=== PATIENT | female | born 1940 | race Caucasian/White ===

== ENCOUNTER 2018-02-28 05:45 | Emergency (ER) | payer MEDICARE, BC ==
[2018-02-28] MEDS ORDERED: Sodium Chloride 0.9% 500 ML IV ONE (06:26)
[2018-02-28] MEDS ORDERED: Acetaminophen 325 MG Tab PO ONE (06:26)
--- NOTE | 2018-02-28 06:37 | EDM.PDOC ---
ED HPI GENERAL MEDICAL PROBLEM - General Chief Complaint: ENT Problem Stated Complaint: LEFT SIDE OF FACE TOOTH PAIN Time Seen by Provider: 02/28/18 05:55 Source of Information: Reports: Patient, Family History Limitations: Reports: No Limitations - History of Present Illness INITIAL COMMENTS - FREE TEXT/NARRATIVE: Patient presents with left facial swelling and pain in the upper tooth area. She 's had a history of a root canal with some dental work and she is concerned that this might have set off her problems. She's been dealing with this now for about 2 days. Last night she woke up at about midnight and called her daughter who is an RN and she has amoxicillin in case of any dental procedure prior to having dental work based on a history of a hip replacement. She took some amoxicillin and Tylenol and was able to fall back to sleep however then she woke up again this morning and felt like the area of swelling on the face was worse and she developed more of a headache as well as some nausea. She denies any fevers chills or sweats. No cough and cold symptoms or sore throat. No swallowing difficulty. Headache is constant pressure and generalized stiffness or skin rash associated with it and no double vision or blurry vision. No focal neurologic deficits. Patient does describe that she had meningitis when she was in her teens. Left Tooth/Teeth Pain Score (Numeric/FACES): 6 - Related Data Allergies Allergy/AdvReac Type Severity Reaction Status Date / Time ciprofloxacin [From Cipro] Allergy Abdominal Verified 02/28/18 06:00 MDT Pain Home Meds: Home Meds Amoxicillin 4 tab PO ASDIRECTED PRN 02/28/18 [History] Levothyroxine 150 mcg PO DAILY 02/28/18 [History] Past Medical History Endocrine/Metabolic History: Reports: Hypothyroidism - Past Surgical History Musculoskeletal Surgical History: Reports: Hip Replacement Social & Family History - Family History Family Medical History: Noncontributory - Tobacco Use Smoking Status *Q: Never Smoker ED ROS ENT - Review of Systems Review Of Systems: See Below Constitutional: Denies: Fever, Chills, Diaphoresis Respiratory: Denies: Shortness of Breath, Cough Cardiovascular: Denies: Chest Pain GI/Abdominal: Reports: Nausea. Denies: Abdominal Pain, Diarrhea, Vomiting Musculoskeletal: Denies: Neck Pain, Muscle Stiffness Skin: Denies: Rash Neurological: Reports: Headache. Denies: Paresthesia, Tingling, Weakness Psychiatric: Denies: Confusion ED EXAM, ENT - Physical Exam Exam: See Below Exam Limited By: No Limitations General Appearance: Alert, WD/WN, No Apparent Distress, Anxious Eye Exam: Bilateral Eye: EOMI, PERRL Ears: Normal External Exam, Normal TMs Nose: Normal Mucousa Mouth/Throat: Normal Inspection, Normal Gums, Dental Pain, Dental Tenderness, Other (No sublingual swelling. She does have firmness to the area of the left, no sinus pain, no obvious peritonsillar abscess, no sublingual swelling.). No: Drooling, Dry Mucous Membrane, Tonsillar Erythema, Trismus Respiratory/Chest: Lungs Clear, Normal Breath Sounds Cardiovascular: Regular Rate, Rhythm GI/Abdominal: Soft, Non-Tender Neurological: Alert, Oriented Psychiatric: Normal Affect, Normal Mood Skin: Warm, Dry Course - Vital Signs Text/Narrative:: Suspect may be a dental source although this could be a sialolith adenitis. She has no adenopathy in the neck, trachea is midline, no trismus, headache is generalized although no red flags for meningitis. She does have some mild swelling and redness to left face. Sent for a CT of the face to rule out deep abscess. Discussed and spent approximately 10 minutes on the phone talking with her daughter who is her power of workers compensation defense attorney as well as an RN and after reviewing( and workup and evaluation decided on the CT scan, IV fluids, antibiotics, clindamycin, Tylenol for pain, labs. Last Recorded V/S: Last Vital Signs Temp 97.6 F 02/28/18 05:54 MDT Pulse 82 02/28/18 05:54 MDT Resp 16 02/28/18 05:54 MDT BP 160/71 H 02/28/18 05:54 MDT Pulse Ox 100 02/28/18 05:54 MDT - Orders/Labs/Meds Orders: Active Orders 24 hr Category Date Time Status Maxillofacial with CM [Max Facial Sinus w Cont] [CT] Exams 02/28/18 06:27 Ordered Stat BASIC METABOLIC PANEL,BMP [CHEM] Stat Lab 02/28/18 06:55 Received C-REACTIVE PROTEIN [CHEM] Stat Lab 02/28/18 06:55 Received Clindamycin Phosphate [Cleocin] 600 mg Med 02/28/18 06:46 Active Sodium Chloride 0.9% [Normal Saline] 100 ml IV ONETIME Sodium Chloride 0.9% [Normal Saline] 500 ml Med 02/28/18 06:26 Active IV .BOLUS Medication Orders Sodium Chloride (Normal Saline) 500 mls @ 250 mls/hr IV .BOLUS ONE Stop: 02/28/18 08:25 MDT Last Admin: 02/28/18 07:01 MDT Dose: 250 mls/hr Clindamycin Phosphate 600 mg/ (Sodium Chloride) 104 mls @ 100 mls/hr IV ONETIME ONE Stop: 02/28/18 07:48 MDT Last Admin: 02/28/18 07:01 MDT Dose: 100 mls/hr Labs: Laboratory Tests 02/28/18 Range/Units 06:55 MDT WBC 7.91 (3.98-10.04) K/mm3 RBC 3.59 L (3.98-5.22) M/mm3 Hgb 11.8 (11.2-15.7) gm/L Hct 35.8 (34.1-44.9) % MCV 99.7 H (79.4-94.8) fl MCH 32.9 H (25.6-32.2) pg MCHC 33.0 (32.2-35.5) g/dl RDW Std Deviation 56.8 H (36.4-46.3) fL Plt Count 282 (182-369) K/mm3 MPV 10.7 (9.4-12.3) fl Neut % (Auto) 72.8 H (34.0-71.1) % Lymph % (Auto) 17.3 L (19.3-51.7) % [place] % (Auto) 6.8 (4.7-12.5) % Eos % (Auto) 2.9 (0.7-5.8) Baso % (Auto) 0.1 (0.1-1.2) % Neut # (Auto) 5.75 (1.56-6.13) K/mm3 Lymph # (Auto) 1.37 (1.18-3.74) K/mm3 [place] # (Auto) 0.54 H (0.24-0.36) K/mm3 Eos # (Auto) 0.23 (0.04-0.36) K/mm3 Baso # (Auto) 0.01 (0.01-0.08) K/mm3 Meds: Medications Generic Name Dose Route Start Last Admin Trade Name Freq PRN Reason Stop Dose Admin Sodium Chloride 500 mls @ 250 mls/hr 02/28/18 06:26 MDT 02/28/18 07:01 MDT Normal Saline IV 02/28/18 08:25 MDT 250 mls/hr .BOLUS ONE Administration Clindamycin Phosphate 600 mg/ 104 mls @ 100 mls/hr 02/28/18 06:46 MDT 07:01 MDT Sodium Chloride IV 02/28/18 07:48 MDT 100 mls/hr ONETIME ONE Administration Discontinued Medications Generic Name Dose Route Start Last Admin Trade Name Freq PRN Reason Stop Dose Admin Acetaminophen 650 mg 02/28/18 06:26 MDT 02/28/18 07:01 MDT Tylenol PO 02/28/18 06:27 MDT 650 mg NOW ONE Administration Departure - Departure Time of Disposition: 07:28 Disposition: Refer to Observation Clinical Impression: Toothache - Discharge Information Referrals: PCP,Not In Area [Primary Care Provider] - Forms: ED Department Discharge - My Orders Last 24 Hours: My Active Orders 02/28/18 06:26 Sodium Chloride 0.9% [Normal Saline] 500 ml IV .BOLUS 02/28/18 06:27 Maxillofacial with CM [Max Facial Sinus w Cont] [CT] Stat 02/28/18 06:46 Clindamycin Phosphate [Cleocin] 600 mg Sodium Chloride 0.9% [Normal Saline] 100 ml IV ONETIME 02/28/18 06:55 BASIC METABOLIC PANEL,BMP [CHEM] Stat C-REACTIVE PROTEIN [CHEM] Stat - Assessment/Plan Last 24 Hours: My Active Orders 02/28/18 06:26 Sodium Chloride 0.9% [Normal Saline] 500 ml IV .BOLUS 02/28/18 06:27 Maxillofacial with CM [Max Facial Sinus w Cont] [CT] Stat 02/28/18 06:46 Clindamycin Phosphate [Cleocin] 600 mg Sodium Chloride 0.9% [Normal Saline] 100 ml IV ONETIME 02/28/18 06:55 BASIC METABOLIC PANEL,BMP [CHEM] Stat C-REACTIVE PROTEIN [CHEM] Stat
[2018-02-28] MEDS ORDERED: Clindamycin Phosphate 600 MG in Sodium Chloride 0.9% 100 ML IV ONE (06:46)
[2018-02-28] MEDS ORDERED: Iopamidol 612 MG/ML 100 ML Bottle IVPUSH ONE (07:37)
[2018-02-28] MEDS ORDERED: Sodium Chloride 0.9% 10 ML Syringe FLUSH ONE (07:37)
== END 2018-02-28 10:35 | disposition other institution (70) ==
LOC: JD.ED 05:45
DX: K08.89 Other specified disorders of teeth and supporting structures (principal); E03.9 Hypothyroidism, unspecified; Z88.1 Allergy status to other antibiotic agents; Z79.899 Other long term (current) drug therapy
CPT/HCPCS: 36415; 70487; 80048; 85025; 86140; 96361; 96365; 99284; A9270; J3490; J7030; J7040; J7050; Q9967

== ENCOUNTER 2019-02-15 18:11 | Inpatient (IN) | payer MEDICARE, BC ==
[2019-02-15] MEDS ORDERED: Sodium Chloride 0.9% 10 ML Syringe FLUSH PRN (18:19)
[2019-02-15] MEDS ORDERED: HYDROmorphone 0.5 MG/0.5 ML Syringe IVPUSH ONE (18:20)
--- NOTE | 2019-02-15 18:41 | EDM.PDOC ---
ED HPI GENERAL MEDICAL PROBLEM - General Chief Complaint: Lower Extremity Injury/Pain Stated Complaint: [facility] Time Seen by Provider: 02/15/19 18:15 Source of Information: Reports: Patient, EMS History Limitations: Reports: No Limitations - History of Present Illness INITIAL COMMENTS - FREE TEXT/NARRATIVE: The patient presents by [facility] ambulance for right hip pain. The patient says she turned to get a cooler and she felt pain in her hip and fell and had more pain in her right hip. She did not hip her head or hurt her neck. She had no chest pain or shortness of breath. She does have a shortened an externally rotated right leg. She has no fever, chills or cough. She says a few years ago she had both hips replaced. 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 Cardiovascular History: Reports: None Other Cardiovascular History: Reynaud's Disease Respiratory History: Reports: Pneumonia, Recurrent Other Genitourinary History: Pt states that her vagina protruded at one point. 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: Musculoskeletal History: Reports: Arthritis, Fracture Other Musculoskeletal History: arthritis in the knees Neurological History: Reports: None Psychiatric History: Reports: None Endocrine/Metabolic History: Reports: Hypothyroidism Hematologic History: Reports: Blood Transfusion(s) Immunologic History: Reports: None Oncologic (Cancer) History: Reports: None Dermatologic History: Reports: None - Infectious Disease History Infectious Disease History: Reports: None - Past Surgical History Head Surgeries/Procedures: Reports: None HEENT Surgical History: Reports: Cataract Surgery, Oral Surgery, Tonsillectomy Other HEENT Surgeries/Procedures: Deviated Septum GI Surgical History: Reports: Appendectomy, Cholecystectomy Female Surgical History: Reports: Hysterectomy Musculoskeletal Surgical History: Reports: Hip Replacement Other Musculoskeletal Surgeries/Procedures:: bilateral hip replacements Social & Family History - Family History Family Medical History: Noncontributory - Tobacco Use Smoking Status *Q: Never Smoker - Caffeine Use Caffeine Use: Reports: Coffee - Recreational Drug Use Recreational Drug Use: No Review of Systems - Review of Systems Review Of Systems: See Below Constitutional: Reports: No Symptoms Eyes: Reports: No Symptoms Ears: Reports: No Symptoms Nose: Reports: No Symptoms Mouth/Throat: Reports: No Symptoms Respiratory: Reports: No Symptoms Cardiovascular: Reports: No Symptoms GI/Abdominal: Reports: No Symptoms Genitourinary: Reports: No Symptoms Musculoskeletal: Reports: Other (Right hip pain) ED EXAM, GENERAL - Physical Exam Exam: See Below Exam Limited By: No Limitations General Appearance: Alert, No Apparent Distress Ears: Normal External Exam Nose: Normal Inspection Head: Atraumatic, Normocephalic Neck: Normal Inspection, Supple, Non-Tender Respiratory/Chest: No Respiratory Distress, Lungs Clear, Normal Breath Sounds Cardiovascular: Regular Rate, Rhythm, No Edema, No Murmur GI/Abdominal: Soft, Non-Tender, No Organomegaly, No Mass Extremities: Other (Pain upon palpation to the right hip. Leg is shortened and externally rotated. Good sensation and pulses distally.) Course - Vital Signs Last Recorded V/S: Last Vital Signs Temp 97.8 F 02/15/19 18:22 Pulse 85 02/15/19 18:22 Resp 16 02/15/19 18:22 BP 160/66 H 02/15/19 18:22 Pulse Ox 98 02/15/19 18:22 - Orders/Labs/Meds Orders: Active Orders 24 hr Category Date Time Status Cardiac Monitoring [RC] . DIRECTED Care 02/15/19 18:19 Active EKG Documentation Completion [RC] STAT Care 02/15/19 18:19 Active Peripheral IV Care [RC] . DIRECTED Care 02/15/19 18:20 Active Chest 1V Frontal [CR] Stat Exams 02/15/19 18:20 Taken Femur wo Cont Rt [CT] Stat Exams 02/15/19 19:36 Taken Hip Min 2V or 3V w Pelvis Rt [CR] Stat Exams 02/15/19 18:20 Taken Lumbar Spine wo Cont [CT] Stat Exams 02/15/19 19:45 Taken Thoracic Spine wo Cont [CT] Stat Exams 02/15/19 19:44 Taken Sodium Chloride 0.9% [Saline Flush] Med 02/15/19 18:19 Active 10 ml FLUSH ASDIRECTED PRN Peripheral IV Insertion Adult [OM.PC] Stat Oth 02/15/19 18:19 Ordered Medication Orders Sodium Chloride (Saline Flush) 10 ml FLUSH ASDIRECTED PRN PRN Reason: Keep Vein Open Last Admin: 02/15/19 18:51 Dose: 10 ml Labs: Laboratory Tests 02/15/19 02/15/19 Range/Units 19:50 19:50 WBC 16.24 H (3.98-10.04) K/mm3 RBC 3.24 L (3.98-5.22) M/mm3 Hgb 10.7 L (11.2-15.7) gm/L Hct 32.5 L (34.1-44.9) % MCV 100.3 H (79.4-94.8) fl MCH 33.0 H (25.6-32.2) pg MCHC 32.9 (32.2-35.5) g/dl RDW Std Deviation 57.7 H (36.4-46.3) fL Plt Count 273 (182-369) K/mm3 MPV 10.7 (9.4-12.3) fl Neut % (Auto) 89.7 H (34.0-71.1) % Lymph % (Auto) 6.2 L (19.3-51.7) % [place] % (Auto) 3.5 L (4.7-12.5) % Eos % (Auto) 0.1 L (0.7-5.8) Baso % (Auto) 0.1 (0.1-1.2) % Neut # (Auto) 14.57 H (1.56-6.13) K/mm3 Lymph # (Auto) 1.00 L (1.18-3.74) K/mm3 [place] # (Auto) 0.57 H (0.24-0.36) K/mm3 Eos # (Auto) 0.02 L (0.04-0.36) K/mm3 Baso # (Auto) 0.02 (0.01-0.08) K/mm3 Manual Slide Review Abnormal smear Sodium 139 (136-145) mEq/L Potassium 4.0 (3.5-5.1) mEq/L Chloride 106 (98-107) mEq/L Carbon Dioxide 24 (21-32) mEq/L Anion Gap 13.0 (5-15) BUN 16 (7-18) mg/dL Creatinine 0.7 (0.55-1.02) mg/dL Est Cr Clr Drug Dosing 55.35 mL/min Estimated GFR (MDRD) > 60 (>60) mL/min BUN/Creatinine Ratio 22.9 H (14-18) Glucose 120 H (83-115) mg/dL Calcium 8.3 L (8.5-10.1) mg/dL Total Bilirubin 0.7 (0.2-1.0) mg/dL AST 25 (15-37) U/L ALT 27 (14-59) U/L Alkaline Phosphatase 61 (46-116) U/L Troponin I < 0.017 (0.00-0.056) ng/mL Total Protein 6.9 (6.4-8.2) g/dl Albumin 3.7 (3.4-5.0) g/dl Globulin 3.2 gm/dL Albumin/Globulin Ratio 1.2 (1-2) Meds: Medications Generic Name Dose Route Start Last Admin Trade Name Freq PRN Reason Stop Dose Admin Sodium Chloride 10 ml 02/15/19 18:19 02/15/19 18:51 Saline Flush FLUSH 10 ml ASDIRECTED PRN Administration Keep Vein Open Discontinued Medications Generic Name Dose Route Start Last Admin Trade Name Freq PRN Reason Stop Dose Admin Hydromorphone HCl 0.25 mg 02/15/19 18:20 02/15/19 18:48 Dilaudid IVPUSH 02/15/19 18:21 0.25 mg ONETIME ONE Administration - Re-Assessments/Exams Free Text/Narrative Re-Assessment/Exam: 02/15/19 18:42 I ordered an IV saline lock, x-ray of her hip and pelvis, labs, CXR and EKG. I also ordered her dilaudid 0.25mg IV. 02/15/19 20:46 Her hip x-ray does show a fracture around her prosthesis on the right. Her WBC was elevated at 16.24. Her Hgb was low at 10.7. Her glucose is 120. Her torponin is normal. Her EKG shows a NSR with no acute changes. I called Dr Paris and he looked at the x-rays and he wanted a CT of her femur. I went into let the patient know and she had pain to her mid back now. I then ordered a CT of her thoracic and lumbar spine. I am waiting on those results now. 02/15/19 21:11 Dr Paris says he can do the surgery here. The CT of the right hip confirms the fracture. The CT of her thoracic and lumbar spine shows old changes but nothing new. She is having more pain so I ordered morphine 2mg IV and some zofran. I called Dr Ashford and he agreed to the admission. Departure - Departure Time of Disposition: 21:20 Disposition: Admitted As Inpatient 64 Clinical Impression: Fall Qualifiers: Encounter type: initial encounter Qualified Code(s): W19.XXXA - Unspecified fall, initial encounter Amalia-prosthetic fracture around prosthetic hip Qualifiers: Encounter type: initial encounter Qualified Code(s): M97.8XXA - Periprosthetic fracture around other internal prosthetic joint, initial encounter; Z96.649 - Presence of unspecified artificial hip joint - Discharge Information Referrals: PCP,Not In Area [Primary Care Provider] - Forms: ED Department Discharge - My Orders Last 24 Hours: My Active Orders 02/15/19 18:19 Cardiac Monitoring [RC] . DIRECTED EKG Documentation Completion [RC] STAT Sodium Chloride 0.9% [Saline Flush] 10 ml FLUSH ASDIRECTED PRN Peripheral IV Insertion Adult [OM.PC] Stat 02/15/19 18:20 Peripheral IV Care [RC] . DIRECTED Chest 1V Frontal [CR] Stat Hip Min 2V or 3V w Pelvis Rt [CR] Stat 02/15/19 19:36 Femur wo Cont Rt [CT] Stat 02/15/19 19:44 Thoracic Spine wo Cont [CT] Stat 02/15/19 19:45 Lumbar Spine wo Cont [CT] Stat - Assessment/Plan Last 24 Hours: My Active Orders 02/15/19 18:19 Cardiac Monitoring [RC] . DIRECTED EKG Documentation Completion [RC] STAT Sodium Chloride 0.9% [Saline Flush] 10 ml FLUSH ASDIRECTED PRN Peripheral IV Insertion Adult [OM.PC] Stat 02/15/19 18:20 Peripheral IV Care [RC] . DIRECTED Chest 1V Frontal [CR] Stat Hip Min 2V or 3V w Pelvis Rt [CR] Stat 02/15/19 19:36 Femur wo Cont Rt [CT] Stat 02/15/19 19:44 Thoracic Spine wo Cont [CT] Stat 02/15/19 19:45 Lumbar Spine wo Cont [CT] Stat
[2019-02-15] MEDS ORDERED: Ondansetron 4 MG/2 ML SDV IVPUSH ONE (21:11)
[2019-02-15] MEDS ORDERED: Morphine 2 MG/ML Syringe IVPUSH ONE (21:12)
[2019-02-15] MEDS ORDERED: Ketorolac 30 MG/ML SDV IV PRN (21:46)
[2019-02-15] MEDS ORDERED: Polyethylene Glycol 3350 Powder 17 GM Packet PO PRN (21:46)
[2019-02-15] MEDS ORDERED: HYDROmorphone 0.5 MG/0.5 ML Syringe IVPUSH PRN (21:46)
[2019-02-15] MEDS ORDERED: Promethazine 6.25 MG in Sodium Chloride 0.9% 50 ML IV PRN (21:46)
[2019-02-15] MEDS ORDERED: Docusate Sodium 100 MG Cap PO PRN (21:46)
[2019-02-15] MEDS ORDERED: Acetaminophen 325 MG Tab PO PRN (21:46)
[2019-02-15] MEDS ORDERED: LORazepam 2 MG/ML SDV IV PRN (21:46)
[2019-02-15] MEDS ORDERED: Albuterol/Ipratropium 3.0-0.5 MG/3 ML Neb Soln NEB PRN (21:46)
[2019-02-15] MEDS ORDERED: Bisacodyl 5 MG Tab PO PRN (21:46)
[2019-02-15] MEDS ORDERED: Cyclobenzaprine 10 MG Tab PO ONE (21:52)
[2019-02-15] MEDS: Heparin Sodium 5,000 Units/ML Vial SUBCUT SCH (22:58)
[2019-02-15] MEDS: Acetaminophen/HYDROcodone 325-5 MG Tab PO PRN (22:59)
[2019-02-16] MEDS: Ketorolac 15 MG/ML SDV IVPUSH PRN ×2 (01:33→09:42)
[2019-02-16] MEDS: Heparin Sodium 5,000 Units/ML Vial SUBCUT SCH ×3 (05:25→21:08)
[2019-02-16] MEDS: Levothyroxine 150 MCG Tab PO SCH (05:26)
[2019-02-16] MEDS: Acetaminophen/HYDROcodone 325-5 MG Tab PO PRN ×5 (05:26→21:57)
--- NOTE | 2019-02-16 06:20 | PCM.HP.2 ---
H&P History of Present Illness - General Date of Service: 02/16/19 Admit Problem/Dx: Admission Diagnosis/Problem Admission Diagnosis/Problem Hip fracture requiring operative repair Source of Information: Patient, Provider, RN, RN Notes Reviewed History Limitations: Reports: No Limitations - History of Present Illness Initial Comments - Free Text/Narative: Leelee Vogt is an 78 -year-old female who presented to our ED via [facility] ambulance on 02/15/19 with right hip pain. She reportedly twisted to get a cooler and felt a pain in her hip and then fell. This resulted in more pain in her right hip. She denies hitting her head or hurting her neck. Denies chest pain, shortness of breath, fever, chills, cough. She is noted to have shortened and externally rotated right leg. She does state that she had both hips replaced a few years ago in [place]. In the ED temperature 97.8F. Pulse 85. Respirations 16. Blood pressure 160/ 66. Pulse ox 90%. Labs are obtained showing a WBC that is elevated at 16.24. Hemoglobin 10.7. Hematocrit 32.5. She is macrocytic. Blood sugar 273,000. Neutrophils are elevated at 89.7%. Sodium is 139. Potassium 4.0. Chloride 104. From an accident 24. Anion gap 13. BUN 16. Creatinine 0.7. EGFR greater than 60. Glucose 120. Calcium 8.3. Bilirubin 0.7. AST 25, ALT 27, alkaline phosphatase 61. Troponin is less than 0.017. Protein is 6.9. Albumin 3.7. Hip x-rays obtained showing a proximal diaphyseal fracture surrounding the right hip prosthesis. There is also bilateral hip prosthesis which appear normal alignment and osteopenia noted. Chest x-rays obtained showing nothing acute. CT of the thoracic spine is obtained showing mild diffuse degenerative change and nothing acute. CT of the lumbar spine is obtained and shows a compression deformity of L2. No acute fracture lines are seen and it is most likely old. MRI would be needed to confirm age. There is also degenerative change noted. Twelve-lead EKG is obtained and interpreted by the ED provider showing sinus rhythm with no acute changes. Dr. Espinal, orthopedic surgeon, is contacted and requested a CT of the femur be obtained. This does show a slightly displaced fracture involving the proximal femoral diaphysis surrounding a hip prosthesis. No additional fracture is seen. There are degenerative changes noted within the knee. She is initially given Dilaudid 0.25 mg IV for pain and then 2 mg IV morphine later. She also given Zofran. She is subsequently admitted to the medical floor for her fracture. 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 She was never a smoker. She is a full code. Her PCP is not in the area. 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 [employer] History: Reports: Endometriosis, Musculoskeletal History: Reports: Arthritis, Fracture Other Musculoskeletal History: arthritis in the knees Neurological History: Reports: None Psychiatric History: Reports: None Endocrine/Metabolic History: Reports: Hypothyroidism Hematologic History: Reports: Blood Transfusion(s) Immunologic History: Reports: None Oncologic (Cancer) History: Reports: None Dermatologic History: Reports: None - Infectious Disease History Infectious Disease History: Reports: None - Past Surgical History Head Surgeries/Procedures: Reports: None HEENT Surgical History: Reports: Cataract Surgery, Oral Surgery, Tonsillectomy Other HEENT Surgeries/Procedures: Deviated Septum GI Surgical History: Reports: Appendectomy, Cholecystectomy Female Surgical History: Reports: Hysterectomy Musculoskeletal Surgical History: Reports: Hip Replacement Other Musculoskeletal Surgeries/Procedures:: bilateral hip replacements Social & Family History - Family History Family Medical History: Noncontributory - Tobacco Use Smoking Status *Q: Never Smoker - Caffeine Use Caffeine Use: Reports: Coffee Other Caffeine Use: pot /day - Recreational Drug Use Recreational Drug Use: No H&P Review of Systems - Review of Systems: Review Of Systems: See Below General: Denies: Fever, Chills, Malaise, Weakness, Fatigue HEENT: Denies: Headaches, Sore Throat Pulmonary: Denies: Shortness of Breath, Wheezing, Pleuritic Chest Pain, Cough, Sputum Cardiovascular: Denies: Chest Pain, Palpitations, Edema Gastrointestinal: Denies: Abdominal Pain, Constipation, Diarrhea, Nausea, Vomiting Genitourinary: Denies: Pain Musculoskeletal: Reports: Leg Pain, Joint Pain (right hip) Skin: Reports: No Symptoms. Denies: Cyanosis Psychiatric: Denies: Confusion Neurological: Reports: Difficulty Walking, Gait Disturbance. Denies: Confusion , Headache, Numbness, Tingling Exam - Exam Exam: See Below - Vital Signs Vital Signs: Last Vital Signs Temp 98.8 F 02/16/19 01:53 Pulse 75 02/16/19 01:53 Resp 18 02/16/19 01:53 BP 120/70 02/16/19 01:53 Pulse Ox 98 02/16/19 01:53 Weight: 166 lb 4.8 oz - Exam Quality Assessment: Urinary Catheter, DVT Prophylaxis. No: Supplemental Oxygen General: Alert, Oriented, Cooperative. No: Mild Distress HEENT: Conjunctiva Clear, EACs Clear, EOMI, Mucosa Moist & [place], Posterior Pharynx Clear, PERRLA Neck: Supple, Trachea Midline Lungs: Clear to Auscultation, Normal Respiratory Effort Cardiovascular: Regular Rate, Regular Rhythm GI/Abdominal Exam: Normal Bowel Sounds, Soft, Non-Tender, No Distention, No Abnormal Bruit (Female) Exam: Deferred Rectal (Female) Exam: Deferred Back Exam: Normal Inspection, Full Range of Motion Extremities: No Pedal Edema, Leg Pain (Right hip), Limited Range of Motion, Other (Right leg is externally rotated and shortened. ) Peripheral Pulses: 3+: Radial (L), Radial (R), Dorsalis Pedis (L), Dorsalis Pedis (R) Skin: Warm, Dry, Intact Neurological: Cranial Nerves Intact (Grossly ), Sensation Intact Neuro Extensive - Mental Status: Alert, Oriented x3, Normal Mood/Affect - Patient Data Lab Results Last 24 hrs: Laboratory Results - last 24 hr 02/15/19 02/15/19 02/15/19 Range/Units 19:50 19:50 22:15 WBC 16.24 H (3.98-10.04) K/mm3 RBC 3.24 L (3.98-5.22) M/mm3 Hgb 10.7 L (11.2-15.7) gm/L Hct 32.5 L (34.1-44.9) % MCV 100.3 H (79.4-94.8) fl MCH 33.0 H (25.6-32.2) pg MCHC 32.9 (32.2-35.5) g/dl RDW Std Deviation 57.7 H (36.4-46.3) fL Plt Count 273 (182-369) K/mm3 MPV 10.7 (9.4-12.3) fl Neut % (Auto) 89.7 H (34.0-71.1) % Lymph % (Auto) 6.2 L (19.3-51.7) % [place] % (Auto) 3.5 L (4.7-12.5) % Eos % (Auto) 0.1 L (0.7-5.8) Baso % (Auto) 0.1 (0.1-1.2) % Neut # (Auto) 14.57 H (1.56-6.13) K/mm3 Lymph # (Auto) 1.00 L (1.18-3.74) K/mm3 [place] # (Auto) 0.57 H (0.24-0.36) K/mm3 Eos # (Auto) 0.02 L (0.04-0.36) K/mm3 Baso # (Auto) 0.02 (0.01-0.08) K/mm3 Manual Slide Review Abnormal smear Sodium 139 (136-145) mEq/L Potassium 4.0 (3.5-5.1) mEq/L Chloride 106 (98-107) mEq/L Carbon Dioxide 24 (21-32) mEq/L Anion Gap 13.0 (5-15) BUN 16 (7-18) mg/dL Creatinine 0.7 (0.55-1.02) mg/dL Est Cr Clr Drug Dosing 55.35 mL/min Estimated GFR (MDRD) > 60 (>60) mL/min BUN/Creatinine Ratio 22.9 H (14-18) Glucose 120 H (83-115) mg/dL Calcium 8.3 L (8.5-10.1) mg/dL Total Bilirubin 0.7 (0.2-1.0) mg/dL AST 25 (15-37) U/L ALT 27 (14-59) U/L Alkaline Phosphatase 61 (46-116) U/L Troponin I < 0.017 (0.00-0.056) ng/mL Total Protein 6.9 (6.4-8.2) g/dl Albumin 3.7 (3.4-5.0) g/dl Globulin 3.2 gm/dL Albumin/Globulin Ratio 1.2 (1-2) Urine Color (Yellow) Urine Appearance (Clear) Urine pH (5.0-8.0) Ur Specific [place] (1.005-1.030) Urine Protein (Negative) Urine Glucose (UA) (Negative) Urine Ketones (Negative) Urine Occult Blood (Negative) Urine Nitrite (Negative) Urine Bilirubin (Negative) Urine Urobilinogen (0.2-1.0) Ur Leukocyte Esterase (Negative) Urine RBC (0-5) /hpf Urine WBC (0-5) /hpf Ur Epithelial Cells (0-5) /hpf Urine Bacteria (FEW) /hpf Urine Mucus (FEW) /hpf MRSA (PCR) Negative 02/15/19 Range/Units 23:15 WBC (3.98-10.04) K/mm3 RBC (3.98-5.22) M/mm3 Hgb (11.2-15.7) gm/L Hct (34.1-44.9) % MCV (79.4-94.8) fl MCH (25.6-32.2) pg MCHC (32.2-35.5) g/dl RDW Std Deviation (36.4-46.3) fL Plt Count (182-369) K/mm3 MPV (9.4-12.3) fl Neut % (Auto) (34.0-71.1) % Lymph % (Auto) (19.3-51.7) % [place] % (Auto) (4.7-12.5) % Eos % (Auto) (0.7-5.8) Baso % (Auto) (0.1-1.2) % Neut # (Auto) (1.56-6.13) K/mm3 Lymph # (Auto) (1.18-3.74) K/mm3 [place] # (Auto) (0.24-0.36) K/mm3 Eos # (Auto) (0.04-0.36) K/mm3 Baso # (Auto) (0.01-0.08) K/mm3 Manual Slide Review Sodium (136-145) mEq/L Potassium (3.5-5.1) mEq/L Chloride (98-107) mEq/L Carbon Dioxide (21-32) mEq/L Anion Gap (5-15) BUN (7-18) mg/dL Creatinine (0.55-1.02) mg/dL Est Cr Clr Drug Dosing mL/min Estimated GFR (MDRD) (>60) mL/min BUN/Creatinine Ratio (14-18) Glucose (83-115) mg/dL Calcium (8.5-10.1) mg/dL Total Bilirubin (0.2-1.0) mg/dL AST (15-37) U/L ALT (14-59) U/L Alkaline Phosphatase (46-116) U/L Troponin I (0.00-0.056) ng/mL Total Protein (6.4-8.2) g/dl Albumin (3.4-5.0) g/dl Globulin gm/dL Albumin/Globulin Ratio (1-2) Urine Color Yellow (Yellow) Urine Appearance Clear (Clear) Urine pH 6.0 (5.0-8.0) Ur Specific [place] 1.020 (1.005-1.030) Urine Protein Negative (Negative) Urine Glucose (UA) Negative (Negative) Urine Ketones 2+ H (Negative) Urine Occult Blood Negative (Negative) Urine Nitrite Negative (Negative) Urine Bilirubin Negative (Negative) Urine Urobilinogen 0.2 (0.2-1.0) Ur Leukocyte Esterase Negative (Negative) Urine RBC Not seen (0-5) /hpf Urine WBC 0-5 (0-5) /hpf Ur Epithelial Cells 0-5 (0-5) /hpf Urine Bacteria Not seen (FEW) /hpf Urine Mucus Not seen (FEW) /hpf MRSA (PCR) Result Diagrams: 02/16/19 06:07 02/16/19 06:07 - Problem List (1) Fall SNOMED Code(s): 8512794, 970357143 ICD Code: W19.XXXA - UNSPECIFIED FALL, INITIAL ENCOUNTER Status: Acute Priority: High Current Visit: Yes Qualifiers: Encounter type: initial encounter Qualified Code(s): W19.XXXA - Unspecified fall, initial encounter (2) Amalia-prosthetic fracture around prosthetic hip SNOMED Code(s): 484161757 ICD Code: M97.8XXA - PERIPROSTH FRACTURE AROUND OTHER INTERNAL PROSTH JOINT, INIT; Z96.649 - PRESENCE OF UNSPECIFIED ARTIFICIAL HIP JOINT Status: Acute Priority: High Current Visit: Yes Qualifiers: Encounter type: initial encounter Qualified Code(s): M97.8XXA - Periprosthetic fracture around other internal prosthetic joint, initial encounter; Z96.649 - Presence of unspecified artificial hip joint (3) Vitamin D deficiency SNOMED Code(s): 01132611 ICD Code: E55.9 - VITAMIN D DEFICIENCY, UNSPECIFIED Status: Acute Priority: Medium Current Visit: Yes Problem List Initiated/Reviewed/Updated: Yes Orders Last 24hrs: Active Orders 24 hr Category Date Time Status Admission Status [Patient Status] [ADT] Routine ADT 02/15/19 21:50 Active Cardiac Monitoring [RC] . DIRECTED Care 02/15/19 18:19 Active EKG Documentation Completion [RC] STAT Care 02/15/19 18:19 Active Insert Arguello Catheter [Insert Urinary Catheter] [OM.PC] Care 02/15/19 23:00 Ordered Q24H Intake and Output [RC] 04,16 Care 02/15/19 21:46 Active Notify Provider Consults [RC] ASDIRECTED Care 02/15/19 21:53 Active Oxygen Therapy [RC] PRN Care 02/15/19 21:46 Active Peripheral IV Care [RC] Q2HR Care 02/15/19 18:20 Active RT Aerosol Therapy [RC] ASDIRECTED Care 02/15/19 21:50 Active Up With Assistance [RC] ASDIRECTED Care 02/15/19 21:46 Active Urinary Catheter Assessment [RC] QSHIFT Care 02/15/19 22:52 Active VTE/DVT Education [RC] BID Care 02/15/19 21:46 Active Vital Signs [RC] Q4HR Care 02/15/19 21:46 Active Consult to Case Management/[employer] Worker [CONS] Cons 02/15/19 21:51 Active Routine Consult to Physician [CONS] Routine Cons 02/15/19 21:51 Active Consult to Spiritual Care [CONS] Routine Cons 02/15/19 21:51 Active OT Evaluation and Treatment [CONS] Routine Cons 02/15/19 21:51 Active PT Evaluation and Treatment [CONS] Routine Cons 02/15/19 21:51 Active Regular Diet [DIET] Diet 02/15/19 Breakfast Active Chest 1V Frontal [CR] Stat Exams 02/15/19 18:20 Taken Femur wo Cont Rt [CT] Stat Exams 02/15/19 19:36 Taken Hip Min 2V or 3V w Pelvis Rt [CR] Stat Exams 02/15/19 18:20 Taken Lumbar Spine wo Cont [CT] Stat Exams 02/15/19 19:45 Taken Thoracic Spine wo Cont [CT] Stat Exams 02/15/19 19:44 Taken BASIC METABOLIC PANEL,BMP [CHEM] AM Lab 02/16/19 05:11 Ordered BASIC METABOLIC PANEL,BMP [CHEM] AM Lab 02/17/19 05:11 Ordered BASIC METABOLIC PANEL,BMP [CHEM] AM Lab 02/18/19 05:11 Ordered BASIC METABOLIC PANEL,BMP [CHEM] AM Lab 02/19/19 05:11 Ordered BASIC METABOLIC PANEL,BMP [CHEM] AM Lab 02/20/19 05:11 Ordered CBC WITH AUTO DIFF [HEME] AM Lab 02/16/19 05:11 Ordered CBC WITH AUTO DIFF [HEME] AM Lab 02/17/19 05:11 Ordered CBC WITH AUTO DIFF [HEME] AM Lab 02/18/19 05:11 Ordered CBC WITH AUTO DIFF [HEME] AM Lab 02/19/19 05:11 Ordered CBC WITH AUTO DIFF [HEME] AM Lab 02/20/19 05:11 Ordered CULTURE URINE [RM] Stat Lab 02/15/19 23:15 Received MAGNESIUM [CHEM] AM Lab 02/16/19 05:11 Ordered MAGNESIUM [CHEM] AM Lab 02/17/19 05:11 Ordered MAGNESIUM [CHEM] AM Lab 02/18/19 05:11 Ordered MAGNESIUM [CHEM] AM Lab 02/19/19 05:11 Ordered MAGNESIUM [CHEM] AM Lab 02/20/19 05:11 Ordered Acetaminophen [Tylenol] Med 02/15/19 21:46 Active 650 mg PO Q4H PRN Acetaminophen/HYDROcodone [[place] 325-5 MG] Med 02/15/19 21:46 Active 1 tab PO Q4H PRN Albuterol/Ipratropium [DuoNeb 3.0-0.5 MG/3 ML] Med 02/15/19 21:46 Active 3 ml NEB Q4H PRN Bisacodyl [Dulcolax] Med 02/15/19 21:46 Active 5 mg PO DAILY PRN Docusate Sodium [Colace] Med 02/15/19 21:46 Active 100 mg PO BID PRN Docusate Sodium/Sennosides [Senna Plus] Med 02/15/19 21:46 Active 1 tab PO BID PRN HYDROmorphone [Dilaudid] Med 02/15/19 21:46 Active 0.25 mg IVPUSH Q2H PRN Heparin Sodium Med 02/15/19 22:00 Active 5,000 units SUBCUT Q8H Ketorolac [Toradol] Med 02/15/19 23:24 Active 15 mg IVPUSH Q6H PRN LORazepam [Ativan] Med 02/15/19 21:46 Active 0.25 mg IV Q6H PRN Levothyroxine Med 02/16/19 06:00 Active 150 mcg PO ACBREAKFAST Ondansetron [Zofran] Med 02/15/19 21:46 Active 4 mg IV Q4H PRN Pantoprazole [ProTONIX IV] Med 02/16/19 09:00 Active 40 mg IV Q12HR Polyethylene Glycol 3350 [MiraLAX] Med 02/15/19 21:46 Active 17 gm PO DAILY PRN Promethazine [Phenergan] 6.25 mg Med 02/15/19 21:46 Active Sodium Chloride 0.9% [Normal Saline] 50 ml IV Q6H Sodium Chloride 0.9% [Saline Flush] Med 02/15/19 18:19 Active 10 ml FLUSH ASDIRECTED PRN Peripheral IV Insertion Adult [OM.PC] Stat Oth 02/15/19 18:19 Ordered Resuscitation Status Routine Resus Stat 02/15/19 21:46 Ordered Medication Orders Acetaminophen (Tylenol) 650 mg PO Q4H PRN PRN Reason: Pain (Mild 1-3)/fever Hydrocodone Bitart/Acetaminophen ([place] 325-5 Mg) 1 tab PO Q4H PRN PRN Reason: Pain (moderate 4-6) Last Admin: 02/16/19 05:26 Dose: 1 tab Admin: 02/15/19 22:59 Dose: 1 tab Albuterol/Ipratropium (Duoneb 3.0-0.5 Mg/3 Ml) 3 ml NEB Q4H PRN PRN Reason: Shortness Of Breath/wheezing Bisacodyl (Dulcolax) 5 mg PO DAILY PRN PRN Reason: Constipation Docusate Sodium (Colace) 100 mg PO BID PRN PRN Reason: Constipation Heparin Sodium (Porcine) (Heparin Sodium) 5,000 units SUBCUT Q8H [facility] Last Admin: 02/16/19 05:25 Dose: 5,000 units Admin: 02/15/19 22:58 Dose: 5,000 units Hydromorphone HCl (Dilaudid) 0.25 mg IVPUSH Q2H PRN PRN Reason: Pain (severe 7-10) Last Admin: 02/16/19 01:48 Dose: 0.25 mg Promethazine HCl 6.25 mg/ (Sodium Chloride) 50.25 mls @ 100 mls/hr IV Q6H PRN PRN Reason: Nausea/Vomiting Ketorolac Tromethamine (Toradol) 15 mg IVPUSH Q6H PRN PRN Reason: Pain (moderate 4-6) Last Admin: 02/16/19 01:33 Dose: 15 mg Levothyroxine Sodium (Levothyroxine) 150 mcg PO ACBREAKFAST [facility] Last Admin: 02/16/19 05:26 Dose: 150 mcg Lorazepam (Ativan) 0.25 mg IV Q6H PRN PRN Reason: Anxiety Ondansetron HCl (Zofran) 4 mg IV Q4H PRN PRN Reason: Nausea/Vomiting Pantoprazole Sodium (Protonix Iv) 40 mg IV Q12HR [facility] Polyethylene Glycol (Miralax) 17 gm PO DAILY PRN PRN Reason: Constipation Senna/Docusate Sodium (Senna Plus) 1 tab PO BID PRN PRN Reason: Constipation Sodium Chloride (Saline Flush) 10 ml FLUSH ASDIRECTED PRN PRN Reason: Keep Vein Open Last Admin: 02/15/19 18:51 Dose: 10 ml Assessment/Plan Comment:: I/P: Acute: Right hip fracture 2/2 fall -Twisted to get cooler, felt pain, fell which resulted in worsening pain -Right leg noted to be externally rotated and shortened -Lumbar and thoracic spine CT negative for acute findings -L2 compression fx noted which is felt to be old -X-ray and CT of right hip show Proximal diaphyseal fracture surrounding right hip prothesis; Bilateral hip prothesis -Dr. Paris, Orthopedic surgeon consulted in ED -Ordering specialty equipment -Plan for surgery 02/17/19 AM -NPO at midnight tonight -PT/OT post surgery -Pain medications as ordered -Arguello catheter placed -Flexeril PRN -MRSA negative -12-lead EKG shows NSR with no ectopy -CXR shows nothing acute -Denies any prior heart or lung problems; Only medication is levothyroxine -TSH pending -Will order type and screen and prepare 2 units if needed for surgery -INR and aPTT in AM Pre-Operative Risk Stratification - Risk factors: None - METS > 4, SVS, Ekg /CXR: benign - Physical exam fairly benign - No recent cardiac or lung eval - No active cardiac or lung disease - Based on the data provided, the patient carries mild cardiac risk for intermediate surgical risk Vitamin D deficiency - Vitamin D 13.0 (30-100) - Start supplementation Chronic: Reynaud's disease Recurrent PNA Arthritis Hypothyroidism Plan: Admit to medical floor Other orders as indicated above Obtain old records from prior bilateral hip prothesis in [place] CM/SW for discharge planning Routine AM labs Home medications as ordered DVT prophylaxis: Heparin Code status: Full code; PCP: None locally
--- NOTE | 2019-02-16 07:11 | CR ---
Chest: AP view of the chest was obtained. Comparison: No prior study. Heart size and mediastinum are normal. Lungs are clear. Bony structures are unremarkable. Impression: 1. Nothing acute is seen on frontal chest x-ray. Diagnostic code #1
--- NOTE | 2019-02-16 07:53 | CR ---
Pelvis and right hip: AP view of the pelvis was obtained as well as AP and lateral views of the right hip. Fracture is identified within the proximal diaphysis of the femur which surrounds a hip prosthesis. Bilateral hip prosthesis are noted. Components are aligned. Bony structures are osteopenic. No additional fracture or other bony abnormality is seen. Impression: 1. Proximal diaphyseal fracture surrounding a right hip prosthesis. 2. Bilateral hip prosthesis which appears normal in alignment. 3. Osteopenia. Diagnostic code #3
--- NOTE | 2019-02-16 07:53 | CT ---
CT lumbar spine Technique: Multiple axial sections were obtained through the lumbar spine. Moderate compression deformity noted of L2. No acute fracture lines are appreciated and this is most likely old although MRI would be needed to confirm age of this finding. Other vertebral body heights are maintained. Disc space narrowing and vacuum phenomena is noted at L2-L3. Moderate disc space narrowing is noted at L4-L5 with mild diffuse posterior disc bulge. Severe disc space narrowing with vacuum phenomena is seen within the L5-S1 disc. Severe degenerative apophyseal change is noted at L1-L2 through L4-L5. Mild degenerative apophyseal change is seen at L5-S1. No additional fracture is identified. Moderate central canal stenosis is noted at L2-L3. Mild central canal stenosis at L3-L4 and L4-L5. Neural foramina appear to be patent where the nerve roots exit. Bony structures are osteopenic. Impression: 1. Compression deformity of L2. No acute fracture lines are seen and this is most likely old. MRI would be needed to confirm age. 2. Degenerative change as noted above. Diagnostic code #3 I agree with preliminary report from [facility], finalized on 02/15/19, 10:03 PM Central Time
--- NOTE | 2019-02-16 07:53 | CT ---
CT thoracic spine Technique: Multiple axial sections through the thoracic spine were obtained. Reconstructed coronal and sagittal images were obtained. Findings: Mild diffuse anterior endplate osteophytes are seen. Mild scattered posterior osteophytes are seen. Vertebral body heights are maintained. Scattered areas of disc space narrowing are seen. No fracture is identified. Vacuum phenomena is noted. Mild scattered fibrosis is seen within the lungs. Scoliosis is present within the spine. No abnormal subluxation is seen. No bony central canal stenosis is seen. Neural foramina are felt to be patent. Incidental note of small fat-containing umbilical hernia and small hiatal hernia. Impression: 1. Mild diffuse degenerative change. Nothing acute is appreciated on CT study of the thoracic spine. Diagnostic code #2 I agree with preliminary report from [facility], finalized on 02/15/19, 10:03 PM Central Time
--- NOTE | 2019-02-16 08:27 | CT ---
CT right femur Technique: Multiple axial sections through the right femur were obtained. Artifact noted from right hip prosthesis. Findings: Fracture felt to be present around the stem of the prosthesis. Greatest cortical displacement is approximately 5 mm. No distal femoral fracture is seen. Degenerative change noted within the knee. Bony structures are osteoporotic. No additional fracture is appreciated. Prosthesis is normal in location. Impression: 1. Slightly displaced fracture involving the proximal femoral diaphysis surrounding a hip prosthesis. 2. No additional fracture is seen. Degenerative change is noted within the knee. Diagnostic code #3 I agree with preliminary report from [facility], finalized on 02/15/19, 9:55 PM Central Time [facility]
[2019-02-16] MEDS ORDERED: Pantoprazole 40 MG Vial IV SCH (09:00)
[2019-02-16] MEDS: Cyclobenzaprine 10 MG Tab PO PRN ×2 (09:42→16:27)
--- NOTE | 2019-02-16 14:32 | PCM.PREANE ---
Preanesthetic Assessment - Procedure Proposed Procedure: right hip total revision with cableing - Anesthesia/Transfusion/Family Hx Anesthesia History: Prior Anesthesia Without Reaction Family History of Anesthesia Reaction: No Transfusion History: Prior Transfusion Without Reaction - Review of Systems General: No Symptoms Pulmonary: No Symptoms Cardiovascular: No Symptoms Gastrointestinal: No Symptoms, Nausea (after pain pill) Neurological: No Symptoms Other: Reports: Easy Bruising, Thyroid Problems - Physical Assessment NPO Status Date: 02/16/19 NPO Status Time: 23:59 Vital Signs: Last Vital Signs Temp 98.1 F 02/16/19 12:00 Pulse 64 02/16/19 12:00 Resp 16 02/16/19 12:00 BP 115/73 02/16/19 12:00 Pulse Ox 98 02/16/19 12:00 Height: 5 ft 4 in Weight: 75.432 kg ASA Class: 2 Mental Status: Alert & Oriented x3 Airway Class: Mallampati = 1 Dentition: Reports: Normal Dentition, Bridge Thyro-Mental Finger Breadths: 3 Mouth Opening Finger Breadths: 3 ROM/Head Extension: Full Lungs: Clear to Auscultation, Normal Respiratory Effort Cardiovascular: Regular Rate, Regular Rhythm - Lab Values: Laboratory Last Values WBC 7.78 K/mm3 (3.98-10.04) 02/16/19 06:07 RBC 3.25 M/mm3 (3.98-5.22) L 02/16/19 06:07 Hgb 10.4 gm/L (11.2-15.7) L 02/16/19 06:07 Hct 33.0 % (34.1-44.9) L 02/16/19 06:07 MCV 101.5 fl (79.4-94.8) H 02/16/19 06:07 MCH 32.0 pg (25.6-32.2) 02/16/19 06:07 MCHC 31.5 g/dl (32.2-35.5) L 02/16/19 06:07 RDW Std Deviation 57.0 fL (36.4-46.3) H 02/16/19 06:07 Plt Count 272 K/mm3 (182-369) 02/16/19 06:07 MPV 10.6 fl (9.4-12.3) 02/16/19 06:07 Neut % (Auto) 73.5 % (34.0-71.1) H 02/16/19 06:07 Lymph % (Auto) 18.6 % (19.3-51.7) L 02/16/19 06:07 [place] % (Auto) 6.2 % (4.7-12.5) 02/16/19 06:07 Eos % (Auto) 1.3 (0.7-5.8) 02/16/19 06:07 Baso % (Auto) 0.1 % (0.1-1.2) 02/16/19 06:07 Neut # (Auto) 5.72 K/mm3 (1.56-6.13) 02/16/19 06:07 Lymph # (Auto) 1.45 K/mm3 (1.18-3.74) 02/16/19 06:07 [place] # (Auto) 0.48 K/mm3 (0.24-0.36) H 02/16/19 06:07 Eos # (Auto) 0.10 K/mm3 (0.04-0.36) 02/16/19 06:07 Baso # (Auto) 0.01 K/mm3 (0.01-0.08) 02/16/19 06:07 Manual Slide Review Abnormal smear 02/15/19 19:50 Sodium 139 mEq/L (136-145) 02/16/19 06:07 Potassium 4.3 mEq/L (3.5-5.1) 02/16/19 06:07 Chloride 104 mEq/L (98-107) 02/16/19 06:07 Carbon Dioxide 27 mEq/L (21-32) 02/16/19 06:07 Anion Gap 12.3 (5-15) 02/16/19 06:07 BUN 13 mg/dL (7-18) 02/16/19 06:07 Creatinine 0.8 mg/dL (0.55-1.02) 02/16/19 06:07 Est Cr Clr Drug Dosing 48.43 mL/min 02/16/19 06:07 Estimated GFR (MDRD) > 60 mL/min (>60) 02/16/19 06:07 BUN/Creatinine Ratio 16.3 (14-18) 02/16/19 06:07 Glucose 103 mg/dL (83-115) 02/16/19 06:07 Calcium 8.7 mg/dL (8.5-10.1) 02/16/19 06:07 Magnesium 2.5 mg/dl (1.8-2.4) H 02/16/19 06:07 Total Bilirubin 0.7 mg/dL (0.2-1.0) 02/15/19 19:50 AST 25 U/L (15-37) 02/15/19 19:50 ALT 27 U/L (14-59) 02/15/19 19:50 Alkaline Phosphatase 61 U/L (46-116) 02/15/19 19:50 Troponin I < 0.017 ng/mL (0.00-0.056) 02/15/19 19:50 Total Protein 6.9 g/dl (6.4-8.2) 02/15/19 19:50 Albumin 3.7 g/dl (3.4-5.0) 02/15/19 19:50 Globulin 3.2 gm/dL 02/15/19 19:50 Albumin/Globulin Ratio 1.2 (1-2) 02/15/19 19:50 Vitamin D 25-Hydroxy 13.0 ng/ml (30.0-100.0) L 02/16/19 06:07 TSH 3rd Generation 0.030 uIU/mL (0.358-3.74) L 02/16/19 06:07 Urine Color Yellow (Yellow) 02/15/19 23:15 Urine Appearance Clear (Clear) 02/15/19 23:15 Urine pH 6.0 (5.0-8.0) 02/15/19 23:15 Ur Specific [place] 1.020 (1.005-1.030) 02/15/19 23:15 Urine Protein Negative (Negative) 02/15/19 23:15 Urine Glucose (UA) Negative (Negative) 02/15/19 23:15 Urine Ketones 2+ (Negative) H 02/15/19 23:15 Urine Occult Blood Negative (Negative) 02/15/19 23:15 Urine Nitrite Negative (Negative) 02/15/19 23:15 Urine Bilirubin Negative (Negative) 02/15/19 23:15 Urine Urobilinogen 0.2 (0.2-1.0) 02/15/19 23:15 Ur Leukocyte Esterase Negative (Negative) 02/15/19 23:15 Urine RBC Not seen /hpf (0-5) 02/15/19 23:15 Urine WBC 0-5 /hpf (0-5) 02/15/19 23:15 Ur Epithelial Cells 0-5 /hpf (0-5) 02/15/19 23:15 Urine Bacteria Not seen /hpf (FEW) 02/15/19 23:15 Urine Mucus Not seen /hpf (FEW) 02/15/19 23:15 MRSA (PCR) Negative 02/15/19 22:15 Crossmatch See Detail 02/16/19 06:07 - Allergies Allergies/Adverse Reactions: Allergies Allergy/AdvReac Type Severity Reaction Status Date / Time No Known Allergies Allergy Verified 02/15/19 18:31 - Blood Blood Available: Yes - Acknowledgements Anesthesia Type Planned: Spinal Pt an Appropriate Candidate for the Planned Anesthesia: Yes Alternatives and Risks of Anesthesia Discussed w Pt/Guardian: Yes Pt/Guardian Understands and Agrees with Anesthesia Plan: Yes PreAnesthesia Questionnaire Other HEENT History: [place] in the mouth. intraocular eyes Cardiovascular History: Reports: None Other Cardiovascular History: Reynaud's Disease Respiratory History: Reports: Pneumonia, Recurrent Other Genitourinary History: Pt states that her vagina protruded at one point. 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: Reports: Endometriosis, Musculoskeletal History: Reports: Arthritis, Fracture Other Musculoskeletal History: arthritis in the knees Neurological History: Reports: None Psychiatric History: Reports: None Endocrine/Metabolic History: Reports: Hypothyroidism Hematologic History: Reports: Blood Transfusion(s) Immunologic History: Reports: None Oncologic (Cancer) History: Reports: None Dermatologic History: Reports: None - Infectious Disease History Infectious Disease History: Reports: None - Past Surgical History Head Surgeries/Procedures: Reports: None HEENT Surgical History: Reports: Cataract Surgery, Oral Surgery, Tonsillectomy Other HEENT Surgeries/Procedures: Deviated Septum GI Surgical History: Reports: Appendectomy, Cholecystectomy Female Surgical History: Reports: Hysterectomy Musculoskeletal Surgical History: Reports: Hip Replacement Other Musculoskeletal Surgeries/Procedures:: bilateral hip replacements - SUBSTANCE USE Smoking Status *Q: Never Smoker Tobacco Use Within Last Twelve Months: No Second Hand Smoke Exposure: No Days Per Week of Alcohol Use: 0 (gin on raisins- eats 10 a dayt) Recreational Drug Use History: No - HOME MEDS Home Medications: Home Meds Levothyroxine 150 mcg PO DAILY 02/28/18 [History] - CURRENT (IN HOUSE) MEDS Current Meds: Current Medications Acetaminophen (Tylenol) 650 mg PO Q4H PRN PRN Reason: Pain (Mild 1-3)/fever Hydrocodone Bitart/Acetaminophen ([place] 325-5 Mg) 1 tab PO Q4H PRN PRN Reason: Pain (moderate 4-6) Last Admin: 02/16/19 14:04 Dose: 1 tab Albuterol/Ipratropium (Duoneb 3.0-0.5 Mg/3 Ml) 3 ml NEB Q4H PRN PRN Reason: Shortness Of Breath/wheezing Bisacodyl (Dulcolax) 5 mg PO DAILY PRN PRN Reason: Constipation Cholecalciferol (Vitamin D3) 5,000 unit PO DAILY DAISY Cyclobenzaprine HCl (Flexeril) 10 mg PO TID PRN PRN Reason: Muscle spasms Last Admin: 02/16/19 09:42 Dose: 10 mg Docusate Sodium (Colace) 100 mg PO BID PRN PRN Reason: Constipation Heparin Sodium (Porcine) (Heparin Sodium) 5,000 units SUBCUT Q8H [facility] Last Admin: 02/16/19 14:04 Dose: 5,000 units Hydromorphone HCl (Dilaudid) 0.25 mg IVPUSH Q2H PRN PRN Reason: Pain (severe 7-10) Last Admin: 02/16/19 01:48 Dose: 0.25 mg Promethazine HCl 6.25 mg/ (Sodium Chloride) 50.25 mls @ 100 mls/hr IV Q6H PRN PRN Reason: Nausea/Vomiting Ketorolac Tromethamine (Toradol) 15 mg IVPUSH Q6H PRN PRN Reason: Pain (moderate 4-6) Last Admin: 02/16/19 09:42 Dose: 15 mg Levothyroxine Sodium (Levothyroxine) 150 mcg PO ACBREAKFAST [facility] Last Admin: 02/16/19 05:26 Dose: 150 mcg Lorazepam (Ativan) 0.25 mg IV Q6H PRN PRN Reason: Anxiety Ondansetron HCl (Zofran) 4 mg IV Q4H PRN PRN Reason: Nausea/Vomiting Pantoprazole Sodium (Protonix) 40 mg PO Q12H [facility] Polyethylene Glycol (Miralax) 17 gm PO DAILY PRN PRN Reason: Constipation Senna/Docusate Sodium (Senna Plus) 1 tab PO BID PRN PRN Reason: Constipation Sodium Chloride (Saline Flush) 10 ml FLUSH ASDIRECTED PRN PRN Reason: Keep Vein Open Last Admin: 02/15/19 18:51 Dose: 10 ml Discontinued Medications Cyclobenzaprine HCl (Flexeril) 10 mg PO ONETIME ONE Stop: 02/15/19 21:53 Last Admin: 02/15/19 21:57 Dose: 10 mg Hydromorphone HCl (Dilaudid) 0.25 mg IVPUSH ONETIME ONE Stop: 02/15/19 18:21 Last Admin: 02/15/19 18:48 Dose: 0.25 mg Ketorolac Tromethamine (Toradol) 30 mg IV Q6H PRN PRN Reason: Pain (moderate 4-6) Morphine Sulfate (Morphine) 2 mg IVPUSH ONETIME ONE Stop: 02/15/19 21:13 Last Admin: 02/15/19 21:23 Dose: 2 mg Ondansetron HCl (Zofran) 4 mg IVPUSH ONETIME ONE Stop: 02/15/19 21:12 Last Admin: 02/15/19 21:19 Dose: 4 mg Pantoprazole Sodium (Protonix Iv) 40 mg IV Q12HR DAISY Last Admin: 02/16/19 09:29 Dose: 40 mg
--- NOTE | 2019-02-16 15:02 | PCM.SN ---
- Free Text/Narrative Note: 02/16/19 [id number] IV started 18 guage left forearm. Other IV inadvertently came out. 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
[2019-02-16] MEDS: Pantoprazole 40 MG Tab.CR PO SCH (21:08)
[2019-02-17] MEDS: Acetaminophen/HYDROcodone 325-5 MG Tab PO PRN ×2 (04:12→20:01)
[2019-02-17] MEDS: Levothyroxine 150 MCG Tab PO SCH (06:11)
[2019-02-17] MEDS ORDERED: Iodine/Sodium Iodide 2% Tincture 30 ML Bottle ONE (07:32)
[2019-02-17] MEDS ORDERED: Vancomycin 1 GM SDV ONE (07:32)
[2019-02-17] MEDS ORDERED: ceFAZolin 1 GM Vial ONE ×3 (07:32→12:48)
[2019-02-17] MEDS ORDERED: Bupivacaine 0.25% 10 ML SDV ONE (07:32)
--- NOTE | 2019-02-17 07:52 | PCM.PN ---
- General Info Date of Service: 02/17/19 Admission Dx/Problem (Free Text): Admission Diagnosis/Problem Admission Diagnosis/Problem Hip fracture requiring operative repair Subjective Update: Follow Up Functional Status: Reports: Pain Controlled, Tolerating Diet, Urinating. Denies : New Symptoms - Review of Systems General: Denies: Fever, Chills HEENT: Reports: No Symptoms Pulmonary: Denies: Shortness of Breath, Cough, Wheezing Cardiovascular: Denies: Chest Pain, Dyspnea on Exertion, Edema, Lightheadedness Gastrointestinal: Denies: Abdominal Pain, Nausea, Vomiting Genitourinary: Reports: No Symptoms Musculoskeletal: Reports: No Symptoms Skin: Reports: No Symptoms Neurological: Reports: Difficulty Walking, Gait Disturbance. Denies: Confusion , Weakness Psychiatric: Denies: Depression, Anxiety, Agitation, Hallucinations Systems Review Comment:: No overnight or acute issues. Her pain is controlled and Hgb is stable. - Patient Data Vitals - Most Recent: Last Vital Signs Temp 37.1 C 02/17/19 04:09 Pulse 93 02/17/19 04:09 Resp 16 02/17/19 04:09 BP 140/81 02/17/19 04:09 Pulse Ox 92 L 02/17/19 04:09 Weight - Most Recent: 73.618 kg I&O - Last 24 Hours: Intake & Output 02/16/19 02/17/19 02/17/19 22:59 06:59 14:59 Intake Total 1600 150 Output Total 1150 1350 Balance 450 -1200 Lab Results Last 24 Hours: Laboratory Results - last 24 hr 02/16/19 02/16/19 02/16/19 Range/Units 06:07 06:07 06:07 PT (9.7-12.0) SECONDS INR APTT (22-31) SECONDS Sodium (136-145) mEq/L Potassium (3.5-5.1) mEq/L Chloride (98-107) mEq/L Carbon Dioxide (21-32) mEq/L Anion Gap (5-15) BUN (7-18) mg/dL Creatinine (0.55-1.02) mg/dL Est Cr Clr Drug Dosing mL/min Estimated GFR (MDRD) (>60) mL/min BUN/Creatinine Ratio (14-18) Glucose (83-115) mg/dL Calcium (8.5-10.1) mg/dL Magnesium (1.8-2.4) mg/dl Total Bilirubin (0.2-1.0) mg/dL AST (15-37) U/L ALT (14-59) U/L Alkaline Phosphatase (46-116) U/L Total Protein (6.4-8.2) g/dl Albumin (3.4-5.0) g/dl Globulin gm/dL Albumin/Globulin Ratio (1-2) Vitamin D 25-Hydroxy 13.0 L (30.0-100.0) ng/ml Free T4 1.18 (0.76-1.46) ng/dL TSH 3rd Generation 0.030 L (0.358-3.74) uIU/mL Blood Type Gel Antibody Screen Crossmatch 02/16/19 02/17/19 02/17/19 Range/Units 06:07 06:30 06:30 PT 10.9 (9.7-12.0) SECONDS INR 1.00 APTT 25 (22-31) SECONDS Sodium 135 L (136-145) mEq/L Potassium 4.1 (3.5-5.1) mEq/L Chloride 101 (98-107) mEq/L Carbon Dioxide 25 (21-32) mEq/L Anion Gap 13.1 (5-15) BUN 9 (7-18) mg/dL Creatinine 0.6 (0.55-1.02) mg/dL Est Cr Clr Drug Dosing 64.58 mL/min Estimated GFR (MDRD) > 60 (>60) mL/min BUN/Creatinine Ratio 15.0 (14-18) Glucose 98 (83-115) mg/dL Calcium 8.6 (8.5-10.1) mg/dL Magnesium 2.2 (1.8-2.4) mg/dl Total Bilirubin 1.0 (0.2-1.0) mg/dL AST 32 (15-37) U/L ALT 29 (14-59) U/L Alkaline Phosphatase 55 (46-116) U/L Total Protein 6.3 L (6.4-8.2) g/dl Albumin 3.1 L (3.4-5.0) g/dl Globulin 3.2 gm/dL Albumin/Globulin Ratio 1.0 (1-2) Vitamin D 25-Hydroxy (30.0-100.0) ng/ml Free T4 (0.76-1.46) ng/dL TSH 3rd Generation (0.358-3.74) uIU/mL Blood Type O POSITIVE Gel Antibody Screen Negative Crossmatch See Detail Med Orders - Current: Current Medications Acetaminophen (Tylenol) 650 mg PO Q4H PRN PRN Reason: Pain (Mild 1-3)/fever Hydrocodone Bitart/Acetaminophen ([place] 325-5 Mg) 1 tab PO Q4H PRN PRN Reason: Pain (moderate 4-6) Last Admin: 02/17/19 04:12 Dose: 1 tab Albuterol/Ipratropium (Duoneb 3.0-0.5 Mg/3 Ml) 3 ml NEB Q4H PRN PRN Reason: Shortness Of Breath/wheezing Bisacodyl (Dulcolax) 5 mg PO DAILY PRN PRN Reason: Constipation Cholecalciferol (Vitamin D3) 5,000 unit PO DAILY DAISY Cyclobenzaprine HCl (Flexeril) 10 mg PO TID PRN PRN Reason: Muscle spasms Last Admin: 02/16/19 16:27 Dose: 10 mg Docusate Sodium (Colace) 100 mg PO BID PRN PRN Reason: Constipation Heparin Sodium (Porcine) (Heparin Sodium) 5,000 units SUBCUT Q8H [facility] Last Admin: 02/16/19 21:08 Dose: 5,000 units Hydromorphone HCl (Dilaudid) 0.25 mg IVPUSH Q2H PRN PRN Reason: Pain (severe 7-10) Last Admin: 02/16/19 01:48 Dose: 0.25 mg Promethazine HCl 6.25 mg/ (Sodium Chloride) 50.25 mls @ 100 mls/hr IV Q6H PRN PRN Reason: Nausea/Vomiting Levothyroxine Sodium (Levothyroxine) 150 mcg PO ACBREAKFAST [facility] Last Admin: 02/17/19 06:11 Dose: Not Given Lorazepam (Ativan) 0.25 mg IV Q6H PRN PRN Reason: Anxiety Ondansetron HCl (Zofran) 4 mg IV Q4H PRN PRN Reason: Nausea/Vomiting Pantoprazole Sodium (Protonix) 40 mg PO Q12H [facility] Last Admin: 02/16/19 21:08 Dose: 40 mg Polyethylene Glycol (Miralax) 17 gm PO DAILY PRN PRN Reason: Constipation Senna/Docusate Sodium (Senna Plus) 1 tab PO BID PRN PRN Reason: Constipation Sodium Chloride (Saline Flush) 10 ml FLUSH ASDIRECTED PRN PRN Reason: Keep Vein Open Last Admin: 02/15/19 18:51 Dose: 10 ml Discontinued Medications Bupivacaine HCl (Sensorcaine-Mpf 0.25%) Confirm Administered Dose 30 ml .ROUTE .STK-MED ONE Stop: 02/17/19 07:33 Cefazolin Sodium (Ancef) Confirm Administered Dose 2 gm .ROUTE .STK-MED ONE Stop: 02/17/19 07:33 Cyclobenzaprine HCl (Flexeril) 10 mg PO ONETIME ONE Stop: 02/15/19 21:53 Last Admin: 02/15/19 21:57 Dose: 10 mg Hydromorphone HCl (Dilaudid) 0.25 mg IVPUSH ONETIME ONE Stop: 02/15/19 18:21 Last Admin: 02/15/19 18:48 Dose: 0.25 mg Iodine (Iodine 2% Mild Tincture) Confirm Administered Dose 30 ml .ROUTE .STK- MED ONE Stop: 02/17/19 07:33 Ketorolac Tromethamine (Toradol) 30 mg IV Q6H PRN PRN Reason: Pain (moderate 4-6) Ketorolac Tromethamine (Toradol) 15 mg IVPUSH Q6H PRN PRN Reason: Pain (moderate 4-6) Last Admin: 02/16/19 09:42 Dose: 15 mg Morphine Sulfate (Morphine) 2 mg IVPUSH ONETIME ONE Stop: 02/15/19 21:13 Last Admin: 02/15/19 21:23 Dose: 2 mg Ondansetron HCl (Zofran) 4 mg IVPUSH ONETIME ONE Stop: 02/15/19 21:12 Last Admin: 02/15/19 21:19 Dose: 4 mg Pantoprazole Sodium (Protonix Iv) 40 mg IV Q12HR DAISY Last Admin: 02/16/19 09:29 Dose: 40 mg Tranexamic Acid (Cyklokapron) Confirm Administered Dose 1,000 mg .ROUTE .STK- MED ONE Stop: 02/17/19 07:33 Vancomycin HCl (Vancomycin) Confirm Administered Dose 1 gm .ROUTE .STK-MED ONE Stop: 02/17/19 07:33 - Exam General: Alert, Oriented, Cooperative, No Acute Distress HEENT: Pupils Equal, Pupils Reactive, EOMI, Mucous Membr. Moist/[place] Neck: Supple Lungs: Normal Respiratory Effort, Decreased Breath Sounds Cardiovascular: Regular Rate, Regular Rhythm GI/Abdominal Exam: Normal Bowel Sounds, Soft, Non-Tender, No Organomegaly, No Distention, No Abnormal Bruit, No Mass (Female) Exam: Deferred, Other (indwelling [place]ville catheter) Back Exam: Other (deferred) Extremities: Normal Inspection, Non-Tender, No Pedal Edema, Normal Capillary Refill Peripheral Pulses: 2+: Posterior Tibial (L), Posterior Tibial (R), Dorsalis Pedis (L), Dorsalis Pedis (R) Skin: Warm, Dry, Intact Neurological: No New Focal Deficit (limited due to pain with movement). No: Normal Gait Psy/Mental Status: Alert, Normal Affect, Normal Mood - Problem List Review Problem List Initiated/Reviewed/Updated: Yes - My Orders Last 24 Hours: My Active Orders 02/16/19 21:00 Pantoprazole [ProTONIX] 40 mg PO Q12H 02/16/19 23:16 IS (RT) [RT Incentive Spirometry] [RC] ASDIRECTED 02/17/19 06:30 CBC WITH AUTO DIFF [HEME] AM 02/18/19 05:11 CBC WITH AUTO DIFF [HEME] AM MAGNESIUM [CHEM] AM 02/19/19 05:11 CBC WITH AUTO DIFF [HEME] AM MAGNESIUM [CHEM] AM 02/20/19 05:11 CBC WITH AUTO DIFF [HEME] AM MAGNESIUM [CHEM] AM - Plan Plan:: I/P: Acute: Right hip fracture 2/ fall -Twisted to get cooler, felt pain, fell which resulted in worsening pain -Right leg noted to be externally rotated and shortened -Lumbar and thoracic spine CT negative for acute findings -L2 compression fx noted which is felt to be old -X-ray and CT of right hip show Proximal diaphyseal fracture surrounding right hip prothesis; Bilateral hip prothesis -Dr. Paris, Orthopedic surgeon consulted in ED -Ordering specialty equipment -Plan for surgery 02/17/19 AM -NPO at midnight tonight -PT/OT post surgery -Pain medications as ordered -[place] catheter placed -Flexeril PRN -MRSA negative -12-lead EKG shows NSR with no ectopy -CXR shows nothing acute -Denies any prior heart or lung problems; Only medication is levothyroxine -TSH 0.03; FT4 is 1.18; cut down dose of thyroid medication -Will order type and screen and prepare 2 units if needed for surgery Vitamin D deficiency - Vitamin D 13.0 (30-100) - Continue oral supplementation Post- Operative Surgery - She is clinically stable - Pain is controlled - Educated about pain management and narcotic use Resolved: Pre-Operative Risk Stratification - Risk factors: None - METS > 4, SVS, EkG /CXR: benign - Physical exam fairly benign - No recent cardiac or lung eval - No active cardiac or lung disease - Based on the data provided, the patient carries mild cardiac risk for intermediate surgical risk Chronic: Raynaud's disease Recurrent PNA Arthritis Hypothyroidism Plan: She is clinically stable Other orders as indicated above CM/SW for discharge planning Routine AM labs DVT prophylaxis: was Heparin SubQ; SCDs for now Code status: Full code; PCP: None locally LOS anticipate >96 hrs pending placement
[2019-02-17] MEDS ORDERED: Lactated Ringers 1,000 ML ONE (08:10)
[2019-02-17] MEDS ORDERED: Dexamethasone 4 MG/ML 5 ML MDV ONE (08:10)
[2019-02-17] MEDS ORDERED: Rocuronium 50 MG/5 ML Vial ONE (08:10)
[2019-02-17] MEDS ORDERED: fentaNYL 250 MCG/5 ML SDV ONE (08:10)
[2019-02-17] MEDS ORDERED: Ondansetron 4 MG/2 ML SDV ONE (08:10)
[2019-02-17] MEDS ORDERED: Propofol 200 MG/20 ML SDV ONE (08:10)
[2019-02-17] MEDS ORDERED: Lidocaine 1% 2 ML ONE (08:10)
[2019-02-17] MEDS ORDERED: ePHEDrine/Normal Saline 25 MG/5 ML Syringe ONE (08:10)
[2019-02-17] MEDS ORDERED: Lidocaine 1% 4 ML ONE (08:10)
[2019-02-17] MEDS ORDERED: Phenylephrine/Normal Saline 100 MCG/ML 10 ML Syringe ONE (08:11)
[2019-02-17] MEDS ORDERED: Naloxone 0.4 MG/ML SDV IVPUSH PRN (08:50)
[2019-02-17] MEDS: Cholecalciferol (Vitamin D3) 5,000 UNIT Tab PO SCH (09:00)
[2019-02-17] MEDS: Pantoprazole 40 MG Tab.CR PO SCH ×2 (09:00→20:01)
[2019-02-17] MEDS ORDERED: Ketamine 500 mg/10 ML MDV ONE (09:46)
[2019-02-17] MEDS ORDERED: Sodium Chloride 0.9% 1,000 ML ONE (10:05)
--- NOTE | 2019-02-17 10:54 | PCM.SN ---
- Free Text/Narrative Note: Reviewed preoperative assessment done by Delio Vergara CRNA. No changes to patients conditions. Lab results from this morning reviewed. Leelee and her family have no further questions at this time. Anesthetic plan is for general anesthesia as Dr. Paris is unable to estimate surgery length. I spoke with Leelee and her family regarding the possibility of ICU postoperatively and the need for blood transfusion. They are agreeable to the plan.
[2019-02-17] MEDS ORDERED: Sodium Chloride 0.9% 100 ML ONE (11:27)
[2019-02-17] MEDS ORDERED: Phenylephrine 1% 10 MG/ML SDV ONE (11:28)
[2019-02-17] MEDS ORDERED: Sodium Chloride 0.9% 250 ML ONE (12:35)
[2019-02-17] MEDS: Morphine 8 MG, EPINEPHrine 0.3 MG, Cefuroxime 750 MG, Ketorolac 30 MG, Sodium Chloride ... ONE ×10 (13:13→17:29)
[2019-02-17] MEDS ORDERED: Neostigmine Methylsulfate 1 MG/ML 5 ML Syringe ONE (13:31)
[2019-02-17] MEDS ORDERED: HYDROmorphone 0.5 MG/0.5 ML Syringe ONE (13:36)
[2019-02-17] MEDS ORDERED: fentaNYL 100 MCG/2 ML SDV IVPUSH PRN (13:44)
[2019-02-17] MEDS ORDERED: ePHEDrine 50 MG/ML SDV IVPUSH PRN (13:44)
[2019-02-17] MEDS ORDERED: Ondansetron 4 MG/2 ML SDV IVPUSH PRN (13:44)
[2019-02-17] MEDS ORDERED: HYDROmorphone 0.5 MG/0.5 ML Syringe IVPUSH PRN (13:44)
--- NOTE | 2019-02-17 13:50 | CR ---
Right hip: Seven fluoroscopic spot views were obtained of the right hip utilizing C-arm device. Comparison: Prior CT right femur exam of 02/17/19. Right hip prosthesis is noted. Study shows placement of cerclage wires around the prosthesis affixing previous fracture that was noted on CT study. Alignment of the prosthesis is maintained. Fluoroscopy time given as 45.6 seconds. Impression: 1. Procedural study showing fixation of previous fracture as described above. Diagnostic code #2
[2019-02-17] MEDS ORDERED: Lactated Ringers 1,000 ML IV SCH (15:30)
--- NOTE | 2019-02-17 15:44 | CR ---
Pelvis and right hip: AP view of the pelvis was obtained as well as AP and lateral views the right hip. Femoral shaft fracture is seen around the right hip prosthesis. Cerclage wires affix the fracture. Femoral stem of the component has been changed from previous exam. Soft tissue air is noted from the surgical procedure. Osteopenia is seen. Stable left hip prosthesis is noted. Impression: 1. Femoral component of right hip prosthesis has been change from prior exam. Cerclage wires are seen affixing previous proximal femoral shaft fracture. 2. Osteopenia and left hip prosthesis which are stable. Diagnostic code #2
[2019-02-17] MEDS ORDERED: ceFAZolin 2 GM in Premix Bag 1 BAG IV SCH (16:30)
[2019-02-17] MEDS: ceFAZolin 2 GM in Premix Bag 1 BAG IV SCH (20:02)
[2019-02-18] MEDS: Acetaminophen/HYDROcodone 325-5 MG Tab PO PRN ×5 (00:21→21:47)
[2019-02-18] MEDS: ceFAZolin 2 GM in Premix Bag 1 BAG IV SCH ×2 (03:30→11:13)
[2019-02-18] MEDS: Cyclobenzaprine 10 MG Tab PO PRN ×2 (05:17→17:45)
--- NOTE | 2019-02-18 08:07 | PCM48HPAN ---
Post Anesthesia Note - EVALUATION WITHIN 48HRS OF ANESTHETIC Vital Signs in Normal Range: Yes Patient Participated in Evaluation: Yes Respiratory Function Stable: Yes Airway Patent: Yes Cardiovascular Function Stable: Yes Hydration Status Stable: Yes Pain Control Satisfactory: Yes Nausea and Vomiting Control Satisfactory: Yes Mental Status Recovered: Yes Vital Signs: Last Vital Signs Temp 36.5 C 02/18/19 04:56 Pulse 84 02/18/19 04:56 Resp 16 02/18/19 04:56 BP 121/54 L 02/18/19 04:56 Pulse Ox 98 02/18/19 04:56 - COMMENTS/OBSERVATIONS Free Text/Narrative:: Patient laying in bed orientated times three. Giuliana conversation this am with patient regarding her goals to get ready to get back to [place], [place] by end of February. No c/o noted at this time. Patient states she did get a bit dizzy when attempting to get up earlier with nurse. Patient states she has episodes of dizziness regularly any ways; therefore, she was not concerned about it.
--- NOTE | 2019-02-18 08:22 | PCM.PN ---
- General Info Date of Service: 02/18/19 Admission Dx/Problem (Free Text): Admission Diagnosis/Problem Admission Diagnosis/Problem Hip fracture requiring operative repair Subjective Update: Follow Up Functional Status: Reports: Pain Controlled, Tolerating Diet, Urinating, New Symptoms - Review of Systems General: Denies: Fever, Weakness, Fatigue, Malaise, Chills HEENT: Reports: No Symptoms Pulmonary: Denies: Shortness of Breath Cardiovascular: Denies: Chest Pain, Dyspnea on Exertion, Lightheadedness Gastrointestinal: Denies: Abdominal Pain, Nausea, Vomiting Genitourinary: Reports: No Symptoms Musculoskeletal: Reports: No Symptoms Skin: Reports: Bruising Neurological: Reports: Difficulty Walking, Gait Disturbance. Denies: Confusion , Weakness Psychiatric: Denies: Anxiety, Agitation, Hallucinations Systems Review Comment:: No overnight issues and pain is controlled. She had 2 near syncopal episode: one this morning and the other at noon while working with physical therapist. She has no other acute issues. Her Hgb level is 8 this morning. - Patient Data Vitals - Most Recent: Last Vital Signs Temp 36.7 C 02/18/19 08:03 Pulse 48 L 02/18/19 08:03 Resp 14 02/18/19 08:03 BP 91/39 L 02/18/19 08:03 Pulse Ox 72 L 02/18/19 08:03 Weight - Most Recent: 77.292 kg I&O - Last 24 Hours: Intake & Output 02/17/19 02/18/19 02/18/19 22:59 06:59 14:59 Intake Total 700 1700 Output Total 100 1200 Balance 600 500 Lab Results Last 24 Hours: Laboratory Results - last 24 hr 02/16/19 02/17/19 02/18/19 Range/Units 06:07 19:21 05:56 WBC 15.29 H 8.37 (3.98-10.04) K/mm3 RBC 3.15 L 2.55 L (3.98-5.22) M/mm3 Hgb 9.9 L 8.0 L D (11.2-15.7) gm/L Hct 30.0 L 24.2 L (34.1-44.9) % MCV 95.2 H D 94.9 H (79.4-94.8) fl MCH 31.4 31.4 (25.6-32.2) pg MCHC 33.0 33.1 (32.2-35.5) g/dl RDW Std Deviation 65.1 H 62.3 H (36.4-46.3) fL Plt Count 189 165 L (182-369) K/mm3 MPV 11.2 10.7 (9.4-12.3) fl Neut % (Auto) 90.3 H 76.7 H (34.0-71.1) % Lymph % (Auto) 4.3 L 14.5 L (19.3-51.7) % [place] % (Auto) 5.0 7.9 (4.7-12.5) % Eos % (Auto) 0 L 0.4 L (0.7-5.8) Baso % (Auto) 0.1 0.1 (0.1-1.2) % Neut # (Auto) 13.81 H 6.43 H (1.56-6.13) K/mm3 Lymph # (Auto) 0.66 L 1.21 (1.18-3.74) K/mm3 [place] # (Auto) 0.76 H 0.66 H (0.24-0.36) K/mm3 Eos # (Auto) 0.00 L 0.03 L (0.04-0.36) K/mm3 Baso # (Auto) 0.01 0.01 (0.01-0.08) K/mm3 Manual Slide Review Abnormal smear Sodium (136-145) mEq/L Potassium (3.5-5.1) mEq/L Chloride (98-107) mEq/L Carbon Dioxide (21-32) mEq/L Anion Gap (5-15) BUN (7-18) mg/dL Creatinine (0.55-1.02) mg/dL Est Cr Clr Drug Dosing mL/min Estimated GFR (MDRD) (>60) mL/min BUN/Creatinine Ratio (14-18) Glucose (83-115) mg/dL Calcium (8.5-10.1) mg/dL Magnesium (1.8-2.4) mg/dl Total Bilirubin (0.2-1.0) mg/dL AST (15-37) U/L ALT (14-59) U/L Alkaline Phosphatase (46-116) U/L Total Protein (6.4-8.2) g/dl Albumin (3.4-5.0) g/dl Globulin gm/dL Albumin/Globulin Ratio (1-2) Blood Type O POSITIVE Gel Antibody Screen Negative Crossmatch See Detail 02/18/19 Range/Units 05:56 WBC (3.98-10.04) K/mm3 RBC (3.98-5.22) M/mm3 Hgb (11.2-15.7) gm/L Hct (34.1-44.9) % MCV (79.4-94.8) fl MCH (25.6-32.2) pg MCHC (32.2-35.5) g/dl RDW Std Deviation (36.4-46.3) fL Plt Count (182-369) K/mm3 MPV (9.4-12.3) fl Neut % (Auto) (34.0-71.1) % Lymph % (Auto) (19.3-51.7) % [place] % (Auto) (4.7-12.5) % Eos % (Auto) (0.7-5.8) Baso % (Auto) (0.1-1.2) % Neut # (Auto) (1.56-6.13) K/mm3 Lymph # (Auto) (1.18-3.74) K/mm3 [place] # (Auto) (0.24-0.36) K/mm3 Eos # (Auto) (0.04-0.36) K/mm3 Baso # (Auto) (0.01-0.08) K/mm3 Manual Slide Review Sodium 137 (136-145) mEq/L Potassium 4.3 (3.5-5.1) mEq/L Chloride 104 (98-107) mEq/L Carbon Dioxide 27 (21-32) mEq/L Anion Gap 10.3 (5-15) BUN 11 (7-18) mg/dL Creatinine 0.7 (0.55-1.02) mg/dL Est Cr Clr Drug Dosing 55.35 mL/min Estimated GFR (MDRD) > 60 (>60) mL/min BUN/Creatinine Ratio 15.7 (14-18) Glucose 112 (83-115) mg/dL Calcium 7.2 L (8.5-10.1) mg/dL Magnesium 2.0 (1.8-2.4) mg/dl Total Bilirubin 0.5 (0.2-1.0) mg/dL AST 61 H (15-37) U/L ALT 29 (14-59) U/L Alkaline Phosphatase 43 L (46-116) U/L Total Protein 5.0 L (6.4-8.2) g/dl Albumin 2.3 L (3.4-5.0) g/dl Globulin 2.7 gm/dL Albumin/Globulin Ratio 0.9 L (1-2) Blood Type Gel Antibody Screen Crossmatch Med Orders - Current: Current Medications Acetaminophen (Tylenol) 650 mg PO Q4H PRN PRN Reason: Pain (Mild 1-3)/fever Hydrocodone Bitart/Acetaminophen ([place] 325-5 Mg) 1 tab PO Q4H PRN PRN Reason: Pain (moderate 4-6) Last Admin: 02/18/19 04:56 Dose: 1 tab Albuterol/Ipratropium (Duoneb 3.0-0.5 Mg/3 Ml) 3 ml NEB Q4H PRN PRN Reason: Shortness Of Breath/wheezing Bisacodyl (Dulcolax) 5 mg PO DAILY PRN PRN Reason: Constipation Last Admin: 02/18/19 06:36 Dose: 5 mg Cholecalciferol (Vitamin D3) 5,000 unit PO DAILY [facility] Last Admin: 02/17/19 09:00 Dose: Not Given Cyclobenzaprine HCl (Flexeril) 10 mg PO TID PRN PRN Reason: Muscle spasms Last Admin: 02/18/19 05:17 Dose: 10 mg Promethazine HCl 6.25 mg/ (Sodium Chloride) 50.25 mls @ 100 mls/hr IV Q6H PRN PRN Reason: Nausea/Vomiting Cefazolin Sodium/Dextrose 2 gm (/ Premix) 50 mls @ 100 mls/hr IV Q8H [facility] Stop: 02/18/19 11:59 Last Admin: 02/18/19 03:30 Dose: 100 mls/hr Levothyroxine Sodium (Levothyroxine) 150 mcg PO ACBREAKFAST [facility] Last Admin: 02/17/19 06:11 Dose: Not Given Lorazepam (Ativan) 0.25 mg IV Q6H PRN PRN Reason: Anxiety Naloxone HCl (Narcan) 0.1 mg IVPUSH Q5M PRN PRN Reason: Oversedation Ondansetron HCl (Zofran) 4 mg IV Q4H PRN PRN Reason: Nausea/Vomiting Pantoprazole Sodium (Protonix) 40 mg PO Q12H DAISY Last Admin: 02/17/19 20:01 Dose: 40 mg Polyethylene Glycol (Miralax) 17 gm PO DAILY PRN PRN Reason: Constipation Senna/Docusate Sodium (Senna Plus) 1 tab PO BID PRN PRN Reason: Constipation Last Admin: 02/17/19 20:01 Dose: 1 tab Sodium Chloride (Saline Flush) 10 ml FLUSH ASDIRECTED PRN PRN Reason: Keep Vein Open Last Admin: 02/15/19 18:51 Dose: 10 ml Discontinued Medications Bupivacaine HCl (Sensorcaine-Mpf 0.25%) Confirm Administered Dose 30 ml .ROUTE .STK-MED ONE Stop: 02/17/19 07:33 Last Admin: 02/17/19 13:14 Dose: 30 ml Cefazolin Sodium (Ancef) Confirm Administered Dose 2 gm .ROUTE .STK-MED ONE Stop: 02/17/19 07:33 Last Admin: 02/17/19 13:09 Dose: 2 gm Cefazolin Sodium (Ancef) Confirm Administered Dose 2 gm .ROUTE .STK-MED ONE Stop: 02/17/19 08:11 Cefazolin Sodium (Ancef) Confirm Administered Dose 2 gm .ROUTE .STK-MED ONE Stop: 02/17/19 12:49 Morphine Sulfate 8 mg/Epinephrine HCl 0.3 mg/Cefuroxime Sodium 750 mg/Ketorolac Tromethamine 30 mg/Sodium Chloride 27.9 ml 0 mg .XX ONETIME ONE Stop: 02/17/19 09:01 Last Admin: 02/17/19 17:29 Dose: Not Given Cyclobenzaprine HCl (Flexeril) 10 mg PO ONETIME ONE Stop: 02/15/19 21:53 Last Admin: 02/15/19 21:57 Dose: 10 mg Dexamethasone (Dexamethasone) Confirm Administered Dose 20 mg .ROUTE .STK-MED ONE Stop: 02/17/19 08:11 Docusate Sodium (Colace) 100 mg PO BID PRN PRN Reason: Constipation Ephedrine Sulfate (Ephedrine In Ns) Confirm Administered Dose 25 mg .ROUTE .STK- MED ONE Stop: 02/17/19 08:11 Ephedrine Sulfate (Ephedrine Sulfate) 5 mg IVPUSH ASDIRECTED PRN PRN Reason: Hypotension Stop: 02/17/19 23:00 Fentanyl (Sublimaze) Confirm Administered Dose 250 mcg .ROUTE .STK-MED ONE Stop: 02/17/19 08:11 Fentanyl (Sublimaze) 50 mcg IVPUSH Q5M PRN PRN Reason: Pain Stop: 02/17/19 23:00 Glycopyrrolate () Confirm Administered Dose 1 mg .ROUTE .STK-MED ONE Stop: 02/17/19 13:32 Heparin Sodium (Porcine) (Heparin Sodium) 5,000 units SUBCUT Q8H DAISY Last Admin: 02/16/19 21:08 Dose: 5,000 units Hydromorphone HCl (Dilaudid) 0.25 mg IVPUSH ONETIME ONE Stop: 02/15/19 18:21 Last Admin: 02/15/19 18:48 Dose: 0.25 mg Hydromorphone HCl (Dilaudid) 0.25 mg IVPUSH Q2H PRN PRN Reason: Pain (severe 7-10) Last Admin: 02/16/19 01:48 Dose: 0.25 mg Hydromorphone HCl (Dilaudid) Confirm Administered Dose 0.5 mg .ROUTE .STK-MED ONE Stop: 02/17/19 13:37 Hydromorphone HCl (Dilaudid) 0.25 mg IVPUSH Q15M PRN PRN Reason: severe pain Stop: 02/17/19 23:00 Lidocaine HCl (Xylocaine-Mpf 1%) Confirm Administered Dose 4 mls @ as directed .ROUTE .STK-MED ONE Stop: 02/17/19 08:11 Lactated Ringer's (Ringers, Lactated) Confirm Administered Dose 1,000 mls @ as directed .ROUTE .STK-MED ONE Stop: 02/17/19 08:11 Lidocaine HCl (Xylocaine-Mpf 1%) Confirm Administered Dose 2 mls @ as directed .ROUTE .STK-MED ONE Stop: 02/17/19 08:11 Cefazolin Sodium/Dextrose 2 gm (/ Premix) 50 mls @ 100 mls/hr IV Q8H DAISY Stop: 02/18/19 08:59 Last Admin: 02/17/19 19:38 Dose: Not Given Sodium Chloride (Normal Saline) Confirm Administered Dose 1,000 mls @ as directed .ROUTE .STK-MED ONE Stop: 02/17/19 10:06 Sodium Chloride (Normal Saline) Confirm Administered Dose 100 mls @ as directed .ROUTE .STK-MED ONE Stop: 02/17/19 11:28 Sodium Chloride (Normal Saline) Confirm Administered Dose 250 mls @ as directed .ROUTE .STK-MED ONE Stop: 02/17/19 12:36 Lactated Ringer's (Ringers, Lactated) 1,000 mls @ 125 mls/hr IV ASDIRECTED DAISY Last Admin: 02/17/19 15:32 Dose: 125 mls/hr Iodine (Iodine 2% Mild Tincture) Confirm Administered Dose 30 ml .ROUTE .STK- MED ONE Stop: 02/17/19 07:33 Last Admin: 02/17/19 13:08 Dose: 30 ml Ketamine HCl (Ketalar) Confirm Administered Dose 500 mg .ROUTE .STK-MED ONE Stop: 02/17/19 09:47 Ketorolac Tromethamine (Toradol) 30 mg IV Q6H PRN PRN Reason: Pain (moderate 4-6) Ketorolac Tromethamine (Toradol) 15 mg IVPUSH Q6H PRN PRN Reason: Pain (moderate 4-6) Last Admin: 02/16/19 09:42 Dose: 15 mg Morphine Sulfate (Morphine) 2 mg IVPUSH ONETIME ONE Stop: 02/15/19 21:13 Last Admin: 02/15/19 21:23 Dose: 2 mg Neostigmine Methylsulfate (Neostigmine) Confirm Administered Dose 5 mg .ROUTE .STK-MED ONE Stop: 02/17/19 13:32 Ondansetron HCl (Zofran) 4 mg IVPUSH ONETIME ONE Stop: 02/15/19 21:12 Last Admin: 02/15/19 21:19 Dose: 4 mg Ondansetron HCl (Zofran) Confirm Administered Dose 4 mg .ROUTE .STK-MED ONE Stop: 02/17/19 08:11 Ondansetron HCl (Zofran) 4 mg IVPUSH ONETIME PRN PRN Reason: Nausea/Vomiting Stop: 02/17/19 23:00 Pantoprazole Sodium (Protonix Iv) 40 mg IV Q12HR DAISY Last Admin: 02/16/19 09:29 Dose: 40 mg Phenylephrine HCl (Phenylephrine In Ns 100 Mcg/Ml) Confirm Administered Dose 1 mg .ROUTE .STK-MED ONE Stop: 02/17/19 08:12 Phenylephrine HCl ([place]-Synephrine) Confirm Administered Dose 10 mg .ROUTE .STK- MED ONE Stop: 02/17/19 11:29 Propofol (Diprivan 20 Ml) Confirm Administered Dose 400 mg .ROUTE .STK-MED ONE Stop: 02/17/19 08:11 Rocuronium [place] (Zemuron) Confirm Administered Dose 50 mg .ROUTE .STK-MED ONE Stop: 02/17/19 08:11 Tranexamic Acid (Cyklokapron) Confirm Administered Dose 1,000 mg .ROUTE .STK- MED ONE Stop: 02/17/19 07:33 Last Admin: 02/17/19 13:22 Dose: 1,000 mg Vancomycin HCl (Vancomycin) Confirm Administered Dose 1 gm .ROUTE .STK-MED ONE Stop: 02/17/19 07:33 Last Admin: 02/17/19 15:00 Dose: 1 gm - Exam General: Alert, Oriented, Cooperative, No Acute Distress HEENT: Pupils Equal, Pupils Reactive, EOMI, Mucous Membr. Moist/[place] Neck: Supple Lungs: Normal Respiratory Effort, Decreased Breath Sounds Cardiovascular: Regular Rate, Regular Rhythm GI/Abdominal Exam: Normal Bowel Sounds, Soft, Non-Tender, No Organomegaly, No Distention, No Abnormal Bruit, No Mass (Female) Exam: Deferred Back Exam: Normal Inspection, Decreased Range of Motion Extremities: Normal Inspection, Normal Range of Motion, Non-Tender, No Pedal Edema, Normal Capillary Refill Peripheral Pulses: 2+: Posterior Tibial (L), Posterior Tibial (R), Dorsalis Pedis (L), Dorsalis Pedis (R) Skin: Warm, Dry, Intact, Ecchymosis (surgical site) Wound/Incisions: Dressing Dry and Intact, No Drainage Neurological: No New Focal Deficit. No: Normal Gait Psy/Mental Status: Alert, Normal Affect, Normal Mood - Problem List Review Problem List Initiated/Reviewed/Updated: Yes - My Orders Last 24 Hours: My Active Orders 02/19/19 05:11 CBC WITH AUTO DIFF [HEME] AM MAGNESIUM [CHEM] AM 02/20/19 05:11 CBC WITH AUTO DIFF [HEME] AM MAGNESIUM [CHEM] AM - Plan Plan:: I/P: Acute: Vasovagal Near Syncope - 2 episodes with blood pressure bottoming out - She is likely volume depleted complicated by narcotic side effects - Cautioned on narcotic/benzo use - NS 500 mg l Bolus x1; will repeat H/H at 1800 Right hip fracture 2/2 fall -Twisted to get cooler, felt pain, fell which resulted in worsening pain -Right leg noted to be externally rotated and shortened -Lumbar and thoracic spine CT negative for acute findings -L2 compression fx noted which is felt to be old -X-ray and CT of right hip show Proximal diaphyseal fracture surrounding right hip prothesis; Bilateral hip prothesis -Dr. Paris, Orthopedic surgeon consulted in ED -Ordering specialty equipment -Plan for surgery 02/17/19 AM -NPO at midnight tonight -PT/OT post surgery -Pain medications as ordered -Arguello catheter placed -Flexeril PRN -MRSA negative -12-lead EKG shows NSR with no ectopy -CXR shows nothing acute -Denies any prior heart or lung problems; Only medication is levothyroxine -TSH 0.03; FT4 is 1.18; cut down dose of thyroid medication (was told she wants to use her home medication-defer pharmacy to okay it) -Will order type and screen and prepare 2 units if needed for surgery Vitamin D deficiency - Vitamin D 13.0 (30-100) - Continue oral supplementation Post- Operative Surgery - She is clinically stable but not hemodynamically when she was working with PT this morning and at noon - Pain is controlled - Educated about pain management and narcotic use Resolved: Pre-Operative Risk Stratification - Risk factors: None - METS > 4, SVS, EkG /CXR: benign - Physical exam fairly benign - No recent cardiac or lung eval - No active cardiac or lung disease - Based on the data provided, the patient carries mild cardiac risk for intermediate surgical risk Chronic: Raynaud's disease Recurrent PNA Arthritis Hypothyroidism Plan: She is clinically stable but had near syncopal episode x 2. After volume resuscitation, he was much better late this afternoon. Other orders as indicated above Closely monitor Hbg level CM/SW for discharge planning Routine AM labs DVT prophylaxis: SCDs and Lovenox SubQ BID Code status: Full code; PCP: None locally Additional orders a above LOS anticipate > 96hrs pending placement to [facility] Thursday
[2019-02-18] MEDS: Pantoprazole 40 MG Tab.CR PO SCH ×2 (09:16→21:47)
[2019-02-18] MEDS: Cholecalciferol (Vitamin D3) 5,000 UNIT Tab PO SCH (09:17)
[2019-02-18] MEDS: Enoxaparin 30 MG/0.3 ML Syringe SUBCUT SCH ×2 (10:08→21:48)
[2019-02-18] MEDS: SYNTHROID 150 MCG PO SCH (11:11)
[2019-02-18] MEDS: Ondansetron 4 MG/2 ML SDV IV PRN (12:06)
[2019-02-18] MEDS ORDERED: Midodrine 5 MG Tab PO PRN (12:35)
[2019-02-18] MEDS ORDERED: Sodium Chloride 0.9% 500 ML IV ONE (13:00)
--- NOTE | 2019-02-18 13:25 | PCM.SURGPN ---
- General Info Date of Service: 02/18/19 POD#: 1 Functional Status: Reports: Pain Controlled, Tolerating Diet, Urinating, Incentive Spirometry, Other (Nursing and the pt report pt with dizziness with transfer bed to chair today. The pt states, "I get dizzy like this after every surgery". The pt states her pain is controlled.) - Patient Data Vitals - Most Recent: Last Vital Signs Temp 98.1 F 02/18/19 08:03 Pulse 48 L 02/18/19 08:03 Resp 14 02/18/19 08:03 BP 100/50 L 02/18/19 09:27 Pulse Ox 96 02/18/19 12:01 Weight - Most Recent: 170 lb 6.4 oz I&O - Last 24 Hours: Intake & Output 02/17/19 02/18/19 02/18/19 22:59 06:59 14:59 Intake Total 700 1700 240 Output Total 100 1200 Balance 600 500 240 Lab Results Last 24 Hrs: Laboratory Results - last 24 hr 02/16/19 02/17/19 02/18/19 Range/Units 06:07 19:21 05:56 WBC 15.29 H 8.37 (3.98-10.04) K/mm3 RBC 3.15 L 2.55 L (3.98-5.22) M/mm3 Hgb 9.9 L 8.0 L D (11.2-15.7) gm/L Hct 30.0 L 24.2 L (34.1-44.9) % MCV 95.2 H D 94.9 H (79.4-94.8) fl MCH 31.4 31.4 (25.6-32.2) pg MCHC 33.0 33.1 (32.2-35.5) g/dl RDW Std Deviation 65.1 H 62.3 H (36.4-46.3) fL Plt Count 189 165 L (182-369) K/mm3 MPV 11.2 10.7 (9.4-12.3) fl Neut % (Auto) 90.3 H 76.7 H (34.0-71.1) % Lymph % (Auto) 4.3 L 14.5 L (19.3-51.7) % [place] % (Auto) 5.0 7.9 (4.7-12.5) % Eos % (Auto) 0 L 0.4 L (0.7-5.8) Baso % (Auto) 0.1 0.1 (0.1-1.2) % Neut # (Auto) 13.81 H 6.43 H (1.56-6.13) K/mm3 Lymph # (Auto) 0.66 L 1.21 (1.18-3.74) K/mm3 [place] # (Auto) 0.76 H 0.66 H (0.24-0.36) K/mm3 Eos # (Auto) 0.00 L 0.03 L (0.04-0.36) K/mm3 Baso # (Auto) 0.01 0.01 (0.01-0.08) K/mm3 Manual Slide Review Abnormal smear Sodium (136-145) mEq/L Potassium (3.5-5.1) mEq/L Chloride (98-107) mEq/L Carbon Dioxide (21-32) mEq/L Anion Gap (5-15) BUN (7-18) mg/dL Creatinine (0.55-1.02) mg/dL Est Cr Clr Drug Dosing mL/min Estimated GFR (MDRD) (>60) mL/min BUN/Creatinine Ratio (14-18) Glucose (83-115) mg/dL Calcium (8.5-10.1) mg/dL Magnesium (1.8-2.4) mg/dl Total Bilirubin (0.2-1.0) mg/dL AST (15-37) U/L ALT (14-59) U/L Alkaline Phosphatase (46-116) U/L Total Protein (6.4-8.2) g/dl Albumin (3.4-5.0) g/dl Globulin gm/dL Albumin/Globulin Ratio (1-2) Blood Type O POSITIVE Gel Antibody Screen Negative Crossmatch See Detail 02/18/19 02/18/19 Range/Units 05:56 13:00 WBC (3.98-10.04) K/mm3 RBC (3.98-5.22) M/mm3 Hgb 8.0 L (11.2-15.7) gm/L Hct (34.1-44.9) % MCV (79.4-94.8) fl MCH (25.6-32.2) pg MCHC (32.2-35.5) g/dl RDW Std Deviation (36.4-46.3) fL Plt Count (182-369) K/mm3 MPV (9.4-12.3) fl Neut % (Auto) (34.0-71.1) % Lymph % (Auto) (19.3-51.7) % [place] % (Auto) (4.7-12.5) % Eos % (Auto) (0.7-5.8) Baso % (Auto) (0.1-1.2) % Neut # (Auto) (1.56-6.13) K/mm3 Lymph # (Auto) (1.18-3.74) K/mm3 [place] # (Auto) (0.24-0.36) K/mm3 Eos # (Auto) (0.04-0.36) K/mm3 Baso # (Auto) (0.01-0.08) K/mm3 Manual Slide Review Sodium 137 (136-145) mEq/L Potassium 4.3 (3.5-5.1) mEq/L Chloride 104 (98-107) mEq/L Carbon Dioxide 27 (21-32) mEq/L Anion Gap 10.3 (5-15) BUN 11 (7-18) mg/dL Creatinine 0.7 (0.55-1.02) mg/dL Est Cr Clr Drug Dosing 55.35 mL/min Estimated GFR (MDRD) > 60 (>60) mL/min BUN/Creatinine Ratio 15.7 (14-18) Glucose 112 (83-115) mg/dL Calcium 7.2 L (8.5-10.1) mg/dL Magnesium 2.0 (1.8-2.4) mg/dl Total Bilirubin 0.5 (0.2-1.0) mg/dL AST 61 H (15-37) U/L ALT 29 (14-59) U/L Alkaline Phosphatase 43 L (46-116) U/L Total Protein 5.0 L (6.4-8.2) g/dl Albumin 2.3 L (3.4-5.0) g/dl Globulin 2.7 gm/dL Albumin/Globulin Ratio 0.9 L (1-2) Blood Type Gel Antibody Screen Crossmatch Med Orders - Current: Current Medications Acetaminophen (Tylenol) 650 mg PO Q4H PRN PRN Reason: Pain (Mild 1-3)/fever Hydrocodone Bitart/Acetaminophen (Schroeder 325-5 Mg) 1 tab PO Q4H PRN PRN Reason: Pain (moderate 4-6) Last Admin: 02/18/19 11:32 Dose: 1 tab Albuterol/Ipratropium (Duoneb 3.0-0.5 Mg/3 Ml) 3 ml NEB Q4H PRN PRN Reason: Shortness Of Breath/wheezing Bisacodyl (Dulcolax) 5 mg PO DAILY PRN PRN Reason: Constipation Last Admin: 02/18/19 06:36 Dose: 5 mg Cholecalciferol (Vitamin D3) 5,000 unit PO DAILY [facility] Last Admin: 02/18/19 09:17 Dose: 5,000 unit Cyclobenzaprine HCl (Flexeril) 10 mg PO TID PRN PRN Reason: Muscle spasms Last Admin: 02/18/19 05:17 Dose: 10 mg Enoxaparin Sodium (Lovenox) 30 mg SUBCUT BID [facility] Last Admin: 02/18/19 10:08 Dose: 30 mg Promethazine HCl 6.25 mg/ (Sodium Chloride) 50.25 mls @ 100 mls/hr IV Q6H PRN PRN Reason: Nausea/Vomiting Sodium Chloride (Normal Saline) 500 mls @ 999 mls/hr IV .BOLUS ONE Stop: 02/18/19 13:30 Last Admin: 02/18/19 13:00 Dose: 999 mls/hr Lorazepam (Ativan) 0.25 mg IV Q6H PRN PRN Reason: Anxiety Midodrine (Midodrine) 10 mg PO TID PRN PRN Reason: hypotension Naloxone HCl (Narcan) 0.1 mg IVPUSH Q5M PRN PRN Reason: Oversedation Ondansetron HCl (Zofran) 4 mg IV Q4H PRN PRN Reason: Nausea/Vomiting Last Admin: 02/18/19 12:06 Dose: 4 mg Pantoprazole Sodium (Protonix) 40 mg PO Q12H [facility] Last Admin: 02/18/19 09:16 Dose: 40 mg Synthroid 150 Mcg (Tab) 0 each PO ACBREAKFAST [facility] Last Admin: 02/18/19 11:11 Dose: 1 each Polyethylene Glycol (Miralax) 17 gm PO DAILY PRN PRN Reason: Constipation Senna/Docusate Sodium (Senna Plus) 1 tab PO BID PRN PRN Reason: Constipation Last Admin: 02/17/19 20:01 Dose: 1 tab Sodium Chloride (Saline Flush) 10 ml FLUSH ASDIRECTED PRN PRN Reason: Keep Vein Open Last Admin: 02/15/19 18:51 Dose: 10 ml Discontinued Medications Bupivacaine HCl (Sensorcaine-Mpf 0.25%) Confirm Administered Dose 30 ml .ROUTE .STK-MED ONE Stop: 02/17/19 07:33 Last Admin: 02/17/19 13:14 Dose: 30 ml Cefazolin Sodium (Ancef) Confirm Administered Dose 2 gm .ROUTE .STK-MED ONE Stop: 02/17/19 07:33 Last Admin: 02/17/19 13:09 Dose: 2 gm Cefazolin Sodium (Ancef) Confirm Administered Dose 2 gm .ROUTE .STK-MED ONE Stop: 02/17/19 08:11 Cefazolin Sodium (Ancef) Confirm Administered Dose 2 gm .ROUTE .STK-MED ONE Stop: 02/17/19 12:49 Morphine Sulfate 8 mg/Epinephrine HCl 0.3 mg/Cefuroxime Sodium 750 mg/Ketorolac Tromethamine 30 mg/Sodium Chloride 27.9 ml 0 mg .XX ONETIME ONE Stop: 02/17/19 09:01 Last Admin: 02/17/19 17:29 Dose: Not Given Cyclobenzaprine HCl (Flexeril) 10 mg PO ONETIME ONE Stop: 02/15/19 21:53 Last Admin: 02/15/19 21:57 Dose: 10 mg Dexamethasone (Dexamethasone) Confirm Administered Dose 20 mg .ROUTE .STK-MED ONE Stop: 02/17/19 08:11 Docusate Sodium (Colace) 100 mg PO BID PRN PRN Reason: Constipation Ephedrine Sulfate (Ephedrine In Ns) Confirm Administered Dose 25 mg .ROUTE .STK- MED ONE Stop: 02/17/19 08:11 Ephedrine Sulfate (Ephedrine Sulfate) 5 mg IVPUSH ASDIRECTED PRN PRN Reason: Hypotension Stop: 02/17/19 23:00 Fentanyl (Sublimaze) Confirm Administered Dose 250 mcg .ROUTE .STK-MED ONE Stop: 02/17/19 08:11 Fentanyl (Sublimaze) 50 mcg IVPUSH Q5M PRN PRN Reason: Pain Stop: 02/17/19 23:00 Glycopyrrolate () Confirm Administered Dose 1 mg .ROUTE .STK-MED ONE Stop: 02/17/19 13:32 Heparin Sodium (Porcine) (Heparin Sodium) 5,000 units SUBCUT Q8H [facility] Last Admin: 02/16/19 21:08 Dose: 5,000 units Hydromorphone HCl (Dilaudid) 0.25 mg IVPUSH ONETIME ONE Stop: 02/15/19 18:21 Last Admin: 02/15/19 18:48 Dose: 0.25 mg Hydromorphone HCl (Dilaudid) 0.25 mg IVPUSH Q2H PRN PRN Reason: Pain (severe 7-10) Last Admin: 02/16/19 01:48 Dose: 0.25 mg Hydromorphone HCl (Dilaudid) Confirm Administered Dose 0.5 mg .ROUTE .STK-MED ONE Stop: 02/17/19 13:37 Hydromorphone HCl (Dilaudid) 0.25 mg IVPUSH Q15M PRN PRN Reason: severe pain Stop: 02/17/19 23:00 Lidocaine HCl (Xylocaine-Mpf 1%) Confirm Administered Dose 4 mls @ as directed .ROUTE .STK-MED ONE Stop: 02/17/19 08:11 Lactated Ringer's (Ringers, Lactated) Confirm Administered Dose 1,000 mls @ as directed .ROUTE .STK-MED ONE Stop: 02/17/19 08:11 Lidocaine HCl (Xylocaine-Mpf 1%) Confirm Administered Dose 2 mls @ as directed .ROUTE .STK-MED ONE Stop: 02/17/19 08:11 Cefazolin Sodium/Dextrose 2 gm (/ Premix) 50 mls @ 100 mls/hr IV Q8H [facility] Stop: 02/18/19 08:59 Last Admin: 02/17/19 19:38 Dose: Not Given Sodium Chloride (Normal Saline) Confirm Administered Dose 1,000 mls @ as directed .ROUTE .STK-MED ONE Stop: 02/17/19 10:06 Sodium Chloride (Normal Saline) Confirm Administered Dose 100 mls @ as directed .ROUTE .STK-MED ONE Stop: 02/17/19 11:28 Sodium Chloride (Normal Saline) Confirm Administered Dose 250 mls @ as directed .ROUTE .STK-MED ONE Stop: 02/17/19 12:36 Lactated Ringer's (Ringers, Lactated) 1,000 mls @ 125 mls/hr IV ASDIRECTED [facility] Last Admin: 02/17/19 15:32 Dose: 125 mls/hr Cefazolin Sodium/Dextrose 2 gm (/ Premix) 50 mls @ 100 mls/hr IV Q8H [facility] Stop: 02/18/19 11:59 Last Admin: 02/18/19 11:13 Dose: 100 mls/hr Iodine (Iodine 2% Mild Tincture) Confirm Administered Dose 30 ml .ROUTE .STK- MED ONE Stop: 02/17/19 07:33 Last Admin: 02/17/19 13:08 Dose: 30 ml Ketamine HCl (Ketalar) Confirm Administered Dose 500 mg .ROUTE .STK-MED ONE Stop: 02/17/19 09:47 Ketorolac Tromethamine (Toradol) 30 mg IV Q6H PRN PRN Reason: Pain (moderate 4-6) Ketorolac Tromethamine (Toradol) 15 mg IVPUSH Q6H PRN PRN Reason: Pain (moderate 4-6) Last Admin: 02/16/19 09:42 Dose: 15 mg Levothyroxine Sodium (Levothyroxine) 150 mcg PO ACBREAKFAST [facility] Last Admin: 02/17/19 06:11 Dose: Not Given Morphine Sulfate (Morphine) 2 mg IVPUSH ONETIME ONE Stop: 02/15/19 21:13 Last Admin: 02/15/19 21:23 Dose: 2 mg Neostigmine Methylsulfate (Neostigmine) Confirm Administered Dose 5 mg .ROUTE .STK-MED ONE Stop: 02/17/19 13:32 Ondansetron HCl (Zofran) 4 mg IVPUSH ONETIME ONE Stop: 02/15/19 21:12 Last Admin: 02/15/19 21:19 Dose: 4 mg Ondansetron HCl (Zofran) Confirm Administered Dose 4 mg .ROUTE .STK-MED ONE Stop: 02/17/19 08:11 Ondansetron HCl (Zofran) 4 mg IVPUSH ONETIME PRN PRN Reason: Nausea/Vomiting Stop: 02/17/19 23:00 Pantoprazole Sodium (Protonix Iv) 40 mg IV Q12HR [facility] Last Admin: 02/16/19 09:29 Dose: 40 mg Phenylephrine HCl (Phenylephrine In Ns 100 Mcg/Ml) Confirm Administered Dose 1 mg .ROUTE .STK-MED ONE Stop: 02/17/19 08:12 Phenylephrine HCl (Bahman-Synephrine) Confirm Administered Dose 10 mg .ROUTE .STK- MED ONE Stop: 02/17/19 11:29 Propofol (Diprivan 20 Ml) Confirm Administered Dose 400 mg .ROUTE .STK-MED ONE Stop: 02/17/19 08:11 Rocuronium [place] (Zemuron) Confirm Administered Dose 50 mg .ROUTE .STK-MED ONE Stop: 02/17/19 08:11 Tranexamic Acid (Cyklokapron) Confirm Administered Dose 1,000 mg .ROUTE .STK- MED ONE Stop: 02/17/19 07:33 Last Admin: 02/17/19 13:22 Dose: 1,000 mg Vancomycin HCl (Vancomycin) Confirm Administered Dose 1 gm .ROUTE .STK-MED ONE Stop: 02/17/19 07:33 Last Admin: 02/17/19 15:00 Dose: 1 gm - Exam Wound/Incisions: Dressing Dry and Intact General: Alert, Cooperative, No Acute Distress Lungs: Normal Respiratory Effort Extremities: Other (NVS intact for BLE. [place]'s at RLE negative. Right thigh soft, nontender. Min eccymosis extending beyond dressing at mid portion of incision.) - Problem List Review Problem List Initiated/Reviewed/Updated: Yes - My Orders Last 24 Hours: Active Orders 24 hr Category Date Time Status Communication Order [RC] ROUTINE Care 02/17/19 13:43 Active Cooling Warming Measures [RC] ASDIRECTED Care 02/17/19 13:43 Inactive Notify Provider [RC] ASDIRECTED Care 02/17/19 13:44 Active Oxygen Therapy [RC] ASDIRECTED Care 02/17/19 13:43 Active Pulse Oximetry [RC] ASDIRECTED Care 02/17/19 13:43 Active Vital Signs [RC] Q15M Care 02/17/19 13:43 Inactive CBC WITH AUTO DIFF [HEME] AM Lab 02/19/19 05:11 Ordered CBC WITH AUTO DIFF [HEME] AM Lab 02/20/19 05:11 Ordered CMP [COMPREHENSIVE METABOLIC PN,CMP] [CHEM] AM Lab 02/19/19 05:11 Ordered CMP [COMPREHENSIVE METABOLIC PN,CMP] [CHEM] AM Lab 02/20/19 05:11 Ordered MAGNESIUM [CHEM] AM Lab 02/19/19 05:11 Ordered MAGNESIUM [CHEM] AM Lab 02/20/19 05:11 Ordered Enoxaparin [Lovenox] Med 02/18/19 09:45 Active 30 mg SUBCUT BID Midodrine Med 02/18/19 12:35 Active 10 mg PO TID PRN Patient's Own Medication [Ptom] Med 02/18/19 11:00 Active 0 each PO ACBREAKFAST Sodium Chloride 0.9% [Normal Saline] 500 ml Med 02/18/19 13:00 Active IV .BOLUS Weight bearing status [OM.PC] Routine Oth 02/17/19 17:24 Ordered Medication Orders Acetaminophen (Tylenol) 650 mg PO Q4H PRN PRN Reason: Pain (Mild 1-3)/fever Hydrocodone Bitart/Acetaminophen (Schroeder 325-5 Mg) 1 tab PO Q4H PRN PRN Reason: Pain (moderate 4-6) Last Admin: 02/18/19 11:32 Dose: 1 tab Admin: 02/18/19 04:56 Dose: 1 tab Admin: 02/18/19 00:21 Dose: 1 tab Admin: 02/17/19 20:01 Dose: 1 tab Admin: 02/17/19 04:12 Dose: 1 tab Admin: 02/16/19 21:57 Dose: 1 tab Admin: 02/16/19 17:51 Dose: 1 tab Admin: 02/16/19 14:04 Dose: 1 tab Admin: 02/16/19 09:28 Dose: 1 tab Admin: 02/16/19 05:26 Dose: 1 tab Admin: 02/15/19 22:59 Dose: 1 tab Albuterol/Ipratropium (Duoneb 3.0-0.5 Mg/3 Ml) 3 ml NEB Q4H PRN PRN Reason: Shortness Of Breath/wheezing Bisacodyl (Dulcolax) 5 mg PO DAILY PRN PRN Reason: Constipation Last Admin: 02/18/19 06:36 Dose: 5 mg Cholecalciferol (Vitamin D3) 5,000 unit PO DAILY [facility] Last Admin: 02/18/19 09:17 Dose: 5,000 unit Admin: 02/17/19 09:00 Dose: Not Given Cyclobenzaprine HCl (Flexeril) 10 mg PO TID PRN PRN Reason: Muscle spasms Last Admin: 02/18/19 05:17 Dose: 10 mg Admin: 02/16/19 16:27 Dose: 10 mg Admin: 02/16/19 09:42 Dose: 10 mg Enoxaparin Sodium (Lovenox) 30 mg SUBCUT BID [facility] Last Admin: 02/18/19 10:08 Dose: 30 mg Promethazine HCl 6.25 mg/ (Sodium Chloride) 50.25 mls @ 100 mls/hr IV Q6H PRN PRN Reason: Nausea/Vomiting Sodium Chloride (Normal Saline) 500 mls @ 999 mls/hr IV .BOLUS ONE Stop: 02/18/19 13:30 Last Admin: 02/18/19 13:00 Dose: 999 mls/hr Lorazepam (Ativan) 0.25 mg IV Q6H PRN PRN Reason: Anxiety Midodrine (Midodrine) 10 mg PO TID PRN PRN Reason: hypotension Naloxone HCl (Narcan) 0.1 mg IVPUSH Q5M PRN PRN Reason: Oversedation Ondansetron HCl (Zofran) 4 mg IV Q4H PRN PRN Reason: Nausea/Vomiting Last Admin: 02/18/19 12:06 Dose: 4 mg Pantoprazole Sodium (Protonix) 40 mg PO Q12H [facility] Last Admin: 02/18/19 09:16 Dose: 40 mg Admin: 02/17/19 20:01 Dose: 40 mg Admin: 02/17/19 09:00 Dose: Not Given Admin: 02/16/19 21:08 Dose: 40 mg Synthroid 150 Mcg (Tab) 0 each PO ACBREAKFAST [facility] Last Admin: 02/18/19 11:11 Dose: 1 each Polyethylene Glycol (Miralax) 17 gm PO DAILY PRN PRN Reason: Constipation Senna/Docusate Sodium (Senna Plus) 1 tab PO BID PRN PRN Reason: Constipation Last Admin: 02/17/19 20:01 Dose: 1 tab Sodium Chloride (Saline Flush) 10 ml FLUSH ASDIRECTED PRN PRN Reason: Keep Vein Open Last Admin: 02/15/19 18:51 Dose: 10 ml - Assessment Assessment (Free Text/Narrative):: POD#1 - s/p fixation of right brian-prosthetic fracture with revision of femoral CHILO components - Plan Plan (Free Text/Narrative):: 1. Hgb 8.0. Discussed with Dr. Ashford and plans for IVF bolus and recheck Hgb in the afternoon. 2. TTWB RLE. 3. Lovenox 30mg subQ BID for VTE prophylaxis. Will likely transition to 325mg ASA PO BID at discharge. 4. Suspect d/c to [facility] for continued rehab. The pt's case was discussed with Dr. Paris.
[2019-02-18] MEDS: Levothyroxine 150 MCG Tab PO SCH (14:04)
[2019-02-18] MEDS ORDERED: Bisacodyl 10 MG Supp RECTAL PRN (17:38)
[2019-02-19] MEDS: SYNTHROID 150 MCG PO SCH (05:46)
[2019-02-19] MEDS: Acetaminophen/HYDROcodone 325-5 MG Tab PO PRN ×3 (05:47→18:43)
--- NOTE | 2019-02-19 08:31 | PCM.PN ---
- General Info Date of Service: 02/19/19 Admission Dx/Problem (Free Text): Admission Diagnosis/Problem Admission Diagnosis/Problem Hip fracture requiring operative repair Subjective Update: Follow Up Functional Status: Reports: Pain Controlled, Tolerating Diet, Ambulating, Urinating. Denies: New Symptoms - Review of Systems General: Denies: Fever, Weakness, Fatigue, Malaise, Chills HEENT: Reports: No Symptoms Cardiovascular: Denies: Chest Pain, Dyspnea on Exertion, Lightheadedness Gastrointestinal: Denies: Abdominal Pain, Nausea, Vomiting Genitourinary: Reports: No Symptoms Musculoskeletal: Reports: No Symptoms Skin: Denies: Cyanosis, Diaphoresis, Bruising, Other Neurological: Denies: Confusion, Weakness, Gait Disturbance Psychiatric: Denies: Depression, Anxiety, Agitation, Hallucinations Systems Review Comment:: She had an eventful night. No reports of near syncope. Her blood pressures have improved. However her Hgb dropped to 6.9 this morning. Her pain is controlled and reports no acute issues. - Patient Data Vitals - Most Recent: Last Vital Signs Temp 37.1 C 02/19/19 05:42 Pulse 78 02/18/19 21:29 Resp 20 02/19/19 05:42 BP 107/44 L 02/19/19 05:37 Pulse Ox 82 L 02/18/19 21:29 Weight - Most Recent: 78.335 kg I&O - Last 24 Hours: Intake & Output 02/18/19 02/19/19 02/19/19 22:59 06:59 14:59 Intake Total 1480 1100 Output Total 1300 1500 Balance 180 -400 Lab Results Last 24 Hours: Laboratory Results - last 24 hr 02/18/19 02/18/19 02/19/19 Range/Units 13:00 19:11 06:05 WBC 7.97 (3.98-10.04) K/mm3 RBC 2.26 L (3.98-5.22) M/mm3 Hgb 8.0 L 7.5 L 6.9 L* (11.2-15.7) gm/L Hct 23.2 L 21.9 L (34.1-44.9) % MCV 96.9 H (79.4-94.8) fl MCH 30.5 (25.6-32.2) pg MCHC 31.5 L (32.2-35.5) g/dl RDW Std Deviation 59.6 H (36.4-46.3) fL Plt Count 155 L (182-369) K/mm3 MPV 11.3 (9.4-12.3) fl Neut % (Auto) 74.5 H (34.0-71.1) % Lymph % (Auto) 14.7 L (19.3-51.7) % Riley % (Auto) 7.5 (4.7-12.5) % Eos % (Auto) 2.8 (0.7-5.8) Baso % (Auto) 0.1 (0.1-1.2) % Neut # (Auto) 5.94 (1.56-6.13) K/mm3 Lymph # (Auto) 1.17 L (1.18-3.74) K/mm3 Riley # (Auto) 0.60 H (0.24-0.36) K/mm3 Eos # (Auto) 0.22 (0.04-0.36) K/mm3 Baso # (Auto) 0.01 (0.01-0.08) K/mm3 Manual Slide Review Abnormal smear Sodium (136-145) mEq/L Potassium (3.5-5.1) mEq/L Chloride (98-107) mEq/L Carbon Dioxide (21-32) mEq/L Anion Gap (5-15) BUN (7-18) mg/dL Creatinine (0.55-1.02) mg/dL Est Cr Clr Drug Dosing mL/min Estimated GFR (MDRD) (>60) mL/min BUN/Creatinine Ratio (14-18) Glucose (83-115) mg/dL Calcium (8.5-10.1) mg/dL Magnesium (1.8-2.4) mg/dl Total Bilirubin (0.2-1.0) mg/dL AST (15-37) U/L ALT (14-59) U/L Alkaline Phosphatase (46-116) U/L Total Protein (6.4-8.2) g/dl Albumin (3.4-5.0) g/dl Globulin gm/dL Albumin/Globulin Ratio (1-2) 02/19/19 Range/Units 06:05 WBC (3.98-10.04) K/mm3 RBC (3.98-5.22) M/mm3 Hgb (11.2-15.7) gm/L Hct (34.1-44.9) % MCV (79.4-94.8) fl MCH (25.6-32.2) pg MCHC (32.2-35.5) g/dl RDW Std Deviation (36.4-46.3) fL Plt Count (182-369) K/mm3 MPV (9.4-12.3) fl Neut % (Auto) (34.0-71.1) % Lymph % (Auto) (19.3-51.7) % Riley % (Auto) (4.7-12.5) % Eos % (Auto) (0.7-5.8) Baso % (Auto) (0.1-1.2) % Neut # (Auto) (1.56-6.13) K/mm3 Lymph # (Auto) (1.18-3.74) K/mm3 Riley # (Auto) (0.24-0.36) K/mm3 Eos # (Auto) (0.04-0.36) K/mm3 Baso # (Auto) (0.01-0.08) K/mm3 Manual Slide Review Sodium 138 (136-145) mEq/L Potassium 3.8 (3.5-5.1) mEq/L Chloride 106 (98-107) mEq/L Carbon Dioxide 26 (21-32) mEq/L Anion Gap 9.8 (5-15) BUN 9 (7-18) mg/dL Creatinine 0.6 (0.55-1.02) mg/dL Est Cr Clr Drug Dosing 65.05 mL/min Estimated GFR (MDRD) > 60 (>60) mL/min BUN/Creatinine Ratio 15.0 (14-18) Glucose 100 (83-115) mg/dL Calcium 7.5 L (8.5-10.1) mg/dL Magnesium 2.0 (1.8-2.4) mg/dl Total Bilirubin 0.6 (0.2-1.0) mg/dL AST 61 H (15-37) U/L ALT 26 (14-59) U/L Alkaline Phosphatase 45 L (46-116) U/L Total Protein 5.1 L (6.4-8.2) g/dl Albumin 2.3 L (3.4-5.0) g/dl Globulin 2.8 gm/dL Albumin/Globulin Ratio 0.8 L (1-2) Chan Results Last 24 Hours: Microbiology 02/15/19 23:15 Urine Culture - Final Urine, Catheterized Med Orders - Current: Current Medications Acetaminophen (Tylenol) 650 mg PO Q4H PRN PRN Reason: Pain (Mild 1-3)/fever Hydrocodone Bitart/Acetaminophen ([place] 325-5 Mg) 1 tab PO Q4H PRN PRN Reason: Pain (moderate 4-6) Last Admin: 02/19/19 05:47 Dose: 1 tab Albuterol/Ipratropium (Duoneb 3.0-0.5 Mg/3 Ml) 3 ml NEB Q4H PRN PRN Reason: Shortness Of Breath/wheezing Bisacodyl (Dulcolax) 5 mg PO DAILY PRN PRN Reason: Constipation Last Admin: 02/18/19 06:36 Dose: 5 mg Bisacodyl (Dulcolax) 10 mg RECTAL DAILY PRN PRN Reason: Constipation Last Admin: 02/18/19 22:03 Dose: 10 mg Cholecalciferol (Vitamin D3) 5,000 unit PO DAILY [facility] Last Admin: 02/18/19 09:17 Dose: 5,000 unit Cyclobenzaprine HCl (Flexeril) 10 mg PO TID PRN PRN Reason: Muscle spasms Last Admin: 02/18/19 17:45 Dose: 10 mg Enoxaparin Sodium (Lovenox) 30 mg SUBCUT BID [facility] Last Admin: 02/18/19 21:48 Dose: 30 mg Promethazine HCl 6.25 mg/ (Sodium Chloride) 50.25 mls @ 100 mls/hr IV Q6H PRN PRN Reason: Nausea/Vomiting Lorazepam (Ativan) 0.25 mg IV Q6H PRN PRN Reason: Anxiety Midodrine (Midodrine) 10 mg PO TID PRN PRN Reason: hypotension Naloxone HCl (Narcan) 0.1 mg IVPUSH Q5M PRN PRN Reason: Oversedation Ondansetron HCl (Zofran) 4 mg IV Q4H PRN PRN Reason: Nausea/Vomiting Last Admin: 02/18/19 12:06 Dose: 4 mg Pantoprazole Sodium (Protonix) 40 mg PO Q12H [facility] Last Admin: 02/18/19 21:47 Dose: 40 mg Synthroid 150 Mcg (Tab) 0 each PO ACBREAKFAST DAISY Last Admin: 02/19/19 05:46 Dose: 1 each Polyethylene Glycol (Miralax) 17 gm PO DAILY PRN PRN Reason: Constipation Senna/Docusate Sodium (Senna Plus) 1 tab PO BID PRN PRN Reason: Constipation Last Admin: 02/17/19 20:01 Dose: 1 tab Sodium Chloride (Saline Flush) 10 ml FLUSH ASDIRECTED PRN PRN Reason: Keep Vein Open Last Admin: 02/15/19 18:51 Dose: 10 ml Discontinued Medications Bupivacaine HCl (Sensorcaine-Mpf 0.25%) Confirm Administered Dose 30 ml .ROUTE .STK-MED ONE Stop: 02/17/19 07:33 Last Admin: 02/17/19 13:14 Dose: 30 ml Cefazolin Sodium (Ancef) Confirm Administered Dose 2 gm .ROUTE .STK-MED ONE Stop: 02/17/19 07:33 Last Admin: 02/17/19 13:09 Dose: 2 gm Cefazolin Sodium (Ancef) Confirm Administered Dose 2 gm .ROUTE .STK-MED ONE Stop: 02/17/19 08:11 Cefazolin Sodium (Ancef) Confirm Administered Dose 2 gm .ROUTE .STK-MED ONE Stop: 02/17/19 12:49 Morphine Sulfate 8 mg/Epinephrine HCl 0.3 mg/Cefuroxime Sodium 750 mg/Ketorolac Tromethamine 30 mg/Sodium Chloride 27.9 ml 0 mg .XX ONETIME ONE Stop: 02/17/19 09:01 Last Admin: 02/17/19 17:29 Dose: Not Given Cyclobenzaprine HCl (Flexeril) 10 mg PO ONETIME ONE Stop: 02/15/19 21:53 Last Admin: 02/15/19 21:57 Dose: 10 mg Dexamethasone (Dexamethasone) Confirm Administered Dose 20 mg .ROUTE .STK-MED ONE Stop: 02/17/19 08:11 Docusate Sodium (Colace) 100 mg PO BID PRN PRN Reason: Constipation Ephedrine Sulfate (Ephedrine In Ns) Confirm Administered Dose 25 mg .ROUTE .STK- MED ONE Stop: 02/17/19 08:11 Ephedrine Sulfate (Ephedrine Sulfate) 5 mg IVPUSH ASDIRECTED PRN PRN Reason: Hypotension Stop: 02/17/19 23:00 Fentanyl (Sublimaze) Confirm Administered Dose 250 mcg .ROUTE .STK-MED ONE Stop: 02/17/19 08:11 Fentanyl (Sublimaze) 50 mcg IVPUSH Q5M PRN PRN Reason: Pain Stop: 02/17/19 23:00 Glycopyrrolate () Confirm Administered Dose 1 mg .ROUTE .STK-MED ONE Stop: 02/17/19 13:32 Heparin Sodium (Porcine) (Heparin Sodium) 5,000 units SUBCUT Q8H DAISY Last Admin: 02/16/19 21:08 Dose: 5,000 units Hydromorphone HCl (Dilaudid) 0.25 mg IVPUSH ONETIME ONE Stop: 02/15/19 18:21 Last Admin: 02/15/19 18:48 Dose: 0.25 mg Hydromorphone HCl (Dilaudid) 0.25 mg IVPUSH Q2H PRN PRN Reason: Pain (severe 7-10) Last Admin: 02/16/19 01:48 Dose: 0.25 mg Hydromorphone HCl (Dilaudid) Confirm Administered Dose 0.5 mg .ROUTE .STK-MED ONE Stop: 02/17/19 13:37 Hydromorphone HCl (Dilaudid) 0.25 mg IVPUSH Q15M PRN PRN Reason: severe pain Stop: 02/17/19 23:00 Lidocaine HCl (Xylocaine-Mpf 1%) Confirm Administered Dose 4 mls @ as directed .ROUTE .STK-MED ONE Stop: 02/17/19 08:11 Lactated Ringer's (Ringers, Lactated) Confirm Administered Dose 1,000 mls @ as directed .ROUTE .STK-MED ONE Stop: 02/17/19 08:11 Lidocaine HCl (Xylocaine-Mpf 1%) Confirm Administered Dose 2 mls @ as directed .ROUTE .STK-MED ONE Stop: 02/17/19 08:11 Cefazolin Sodium/Dextrose 2 gm (/ Premix) 50 mls @ 100 mls/hr IV Q8H DAISY Stop: 02/18/19 08:59 Last Admin: 02/17/19 19:38 Dose: Not Given Sodium Chloride (Normal Saline) Confirm Administered Dose 1,000 mls @ as directed .ROUTE .STK-MED ONE Stop: 02/17/19 10:06 Sodium Chloride (Normal Saline) Confirm Administered Dose 100 mls @ as directed .ROUTE .STK-MED ONE Stop: 02/17/19 11:28 Sodium Chloride (Normal Saline) Confirm Administered Dose 250 mls @ as directed .ROUTE .STK-MED ONE Stop: 02/17/19 12:36 Lactated Ringer's (Ringers, Lactated) 1,000 mls @ 125 mls/hr IV ASDIRECTED [facility] Last Admin: 02/17/19 15:32 Dose: 125 mls/hr Cefazolin Sodium/Dextrose 2 gm (/ Premix) 50 mls @ 100 mls/hr IV Q8H [facility] Stop: 02/18/19 11:59 Last Admin: 02/18/19 11:13 Dose: 100 mls/hr Sodium Chloride (Normal Saline) 500 mls @ 999 mls/hr IV .BOLUS ONE Stop: 02/18/19 13:30 Last Admin: 02/18/19 13:00 Dose: 999 mls/hr Iodine (Iodine 2% Mild Tincture) Confirm Administered Dose 30 ml .ROUTE .STK- MED ONE Stop: 02/17/19 07:33 Last Admin: 02/17/19 13:08 Dose: 30 ml Ketamine HCl (Ketalar) Confirm Administered Dose 500 mg .ROUTE .STK-MED ONE Stop: 02/17/19 09:47 Ketorolac Tromethamine (Toradol) 30 mg IV Q6H PRN PRN Reason: Pain (moderate 4-6) Ketorolac Tromethamine (Toradol) 15 mg IVPUSH Q6H PRN PRN Reason: Pain (moderate 4-6) Last Admin: 02/16/19 09:42 Dose: 15 mg Levothyroxine Sodium (Levothyroxine) 150 mcg PO ACBREAKFAST [facility] Last Admin: 02/18/19 14:04 Dose: Not Given Morphine Sulfate (Morphine) 2 mg IVPUSH ONETIME ONE Stop: 02/15/19 21:13 Last Admin: 02/15/19 21:23 Dose: 2 mg Neostigmine Methylsulfate (Neostigmine) Confirm Administered Dose 5 mg .ROUTE .STK-MED ONE Stop: 02/17/19 13:32 Ondansetron HCl (Zofran) 4 mg IVPUSH ONETIME ONE Stop: 02/15/19 21:12 Last Admin: 02/15/19 21:19 Dose: 4 mg Ondansetron HCl (Zofran) Confirm Administered Dose 4 mg .ROUTE .STK-MED ONE Stop: 02/17/19 08:11 Ondansetron HCl (Zofran) 4 mg IVPUSH ONETIME PRN PRN Reason: Nausea/Vomiting Stop: 02/17/19 23:00 Pantoprazole Sodium (Protonix Iv) 40 mg IV Q12HR DAISY Last Admin: 02/16/19 09:29 Dose: 40 mg Phenylephrine HCl (Phenylephrine In Ns 100 Mcg/Ml) Confirm Administered Dose 1 mg .ROUTE .STK-MED ONE Stop: 02/17/19 08:12 Phenylephrine HCl ([place]-Synephrine) Confirm Administered Dose 10 mg .ROUTE .STK- MED ONE Stop: 02/17/19 11:29 Propofol (Diprivan 20 Ml) Confirm Administered Dose 400 mg .ROUTE .STK-MED ONE Stop: 02/17/19 08:11 Rocuronium [place] (Zemuron) Confirm Administered Dose 50 mg .ROUTE .STK-MED ONE Stop: 02/17/19 08:11 Tranexamic Acid (Cyklokapron) Confirm Administered Dose 1,000 mg .ROUTE .STK- MED ONE Stop: 02/17/19 07:33 Last Admin: 02/17/19 13:22 Dose: 1,000 mg Vancomycin HCl (Vancomycin) Confirm Administered Dose 1 gm .ROUTE .STK-MED ONE Stop: 02/17/19 07:33 Last Admin: 02/17/19 15:00 Dose: 1 gm - Exam General: Alert, Oriented, Cooperative, No Acute Distress HEENT: Pupils Equal, Pupils Reactive, EOMI, Mucous Membr. Moist/[place] Neck: Supple Lungs: Clear to Auscultation, Normal Respiratory Effort Cardiovascular: Regular Rate, Regular Rhythm GI/Abdominal Exam: Normal Bowel Sounds, Soft, Non-Tender, No Organomegaly, No Distention, No Abnormal Bruit, No Mass (Female) Exam: Deferred Back Exam: Normal Inspection, Decreased Range of Motion Extremities: Normal Inspection, Normal Range of Motion, Non-Tender, No Pedal Edema, Normal Capillary Refill Skin: Warm, Dry, Intact, Ecchymosis (at sugrical site) Wound/Incisions: Dressing Dry and Intact, No Drainage Neurological: No New Focal Deficit. No: Normal Gait Psy/Mental Status: Alert, Normal Affect, Normal Mood - Problem List Review Problem List Initiated/Reviewed/Updated: Yes - My Orders Last 24 Hours: My Active Orders 02/18/19 11:00 Patient's Own Medication [Ptom] 0 each PO ACBREAKFAST 02/18/19 12:35 Midodrine 10 mg PO TID PRN 02/18/19 17:38 Bisacodyl [Dulcolax] 10 mg RECTAL DAILY PRN 02/20/19 05:11 CBC WITH AUTO DIFF [HEME] AM MAGNESIUM [CHEM] AM - Plan Plan:: I/P: Acute: Post-Operative Anemia - Hgb of 6.9; baseline of 10.7 - Meets criteria for transfusion - Type and cross 2 units of PRBC for transfusions - Discussed risks and benefits of improving her Hgb level with transfusions Right Hip Fracture 2/2 fall -Twisted to get cooler, felt pain, fell which resulted in worsening pain -Right leg noted to be externally rotated and shortened -Lumbar and thoracic spine CT negative for acute findings -L2 compression fx noted which is felt to be old -X-ray and CT of right hip show Proximal diaphyseal fracture surrounding right hip prothesis; Bilateral hip prothesis -Dr. Paris, Orthopedic surgeon consulted in ED -Ordering specialty equipment -Plan for surgery 02/17/19 AM -NPO at midnight tonight -PT/OT post surgery -Pain medications as ordered -Arguello catheter placed -Flexeril PRN -MRSA negative -12-lead EKG shows NSR with no ectopy -CXR shows nothing acute -Denies any prior heart or lung problems; Only medication is levothyroxine -TSH 0.03; FT4 is 1.18; cut down dose of thyroid medication (was told she wants to use her home medication-defer pharmacy to okay it) -Will order type and screen and prepare 2 units if needed for surgery Vitamin D deficiency - Vitamin D 13.0 (30-100) - Continue oral supplementation Post- Operative Surgery - She is clinically stable but not hemodynamically when she was working with PT this morning and at noon - Pain is controlled - Educated about pain management and narcotic use Resolved: Pre-Operative Risk Stratification - Risk factors: None - METS > 4, SVS, EKG /CXR: benign - Physical exam fairly benign - No recent cardiac or lung eval - No active cardiac or lung disease - Based on the data provided, the patient carries mild cardiac risk for intermediate surgical risk S/p Vasovagal Near Syncope - 2 episodes with blood pressure bottoming out - She is likely volume depleted complicated by narcotic side effects - Cautioned on narcotic/benzo use - NS 500 mg l Bolus x1; will repeat H/H at 1800 Chronic: Raynaud's disease Recurrent PNA Arthritis Hypothyroidism Plan: She is clinically stable. Other orders as indicated above Closely monitor Hbg level CM/SW for discharge planning Routine AM labs DVT prophylaxis: SCDs and Lovenox SubQ BID Code status: Full code; PCP: None locally Additional orders a above LOS anticipate > 96hrs pending placement to [place] Thursday Updated family about her clinical progress, morning labs, and treatment plan for today
[2019-02-19] MEDS: Enoxaparin 30 MG/0.3 ML Syringe SUBCUT SCH ×2 (10:03→21:26)
[2019-02-19] MEDS: Pantoprazole 40 MG Tab.CR PO SCH ×2 (10:03→21:26)
[2019-02-19] MEDS: Cholecalciferol (Vitamin D3) 5,000 UNIT Tab PO SCH (10:03)
[2019-02-19] MEDS ORDERED: diphenhydrAMINE 50 MG/ML SDV IV ONE (11:05)
[2019-02-19] MEDS ORDERED: Dexamethasone 4 MG/ML SDV IVPUSH ONE (11:05)
[2019-02-19] MEDS ORDERED: Acetaminophen 325 MG Tab PO ONE (11:05)
[2019-02-19] MEDS: Ondansetron 4 MG/2 ML SDV IV PRN (12:10)
[2019-02-19] MEDS ORDERED: Sodium Chloride 0.9% 250 ML IV SCH (12:45)
[2019-02-20] MEDS: Acetaminophen/HYDROcodone 325-5 MG Tab PO PRN ×3 (03:41→18:27)
[2019-02-20] MEDS: SYNTHROID 150 MCG PO SCH (05:05)
--- NOTE | 2019-02-20 07:18 | PCM.PN ---
- General Info Date of Service: 02/20/19 Admission Dx/Problem (Free Text): Admission Diagnosis/Problem Admission Diagnosis/Problem Hip fracture requiring operative repair Subjective Update: Follow Up Functional Status: Reports: Pain Controlled, Tolerating Diet, Ambulating, Urinating, New Symptoms - Review of Systems General: Denies: Fever, Weakness, Fatigue, Malaise, Chills, Night Sweats HEENT: Reports: No Symptoms Pulmonary: Reports: No Symptoms Cardiovascular: Denies: Chest Pain, Palpitations, Dyspnea on Exertion, Orthopnea , Lightheadedness Gastrointestinal: Denies: Abdominal Pain, Nausea, Vomiting Genitourinary: Reports: No Symptoms Musculoskeletal: Reports: No Symptoms, Back Pain Skin: Denies: Cyanosis, Bruising Neurological: Reports: Confusion, Difficulty Walking, Gait Disturbance. Denies : Weakness Psychiatric: Denies: Depression, Mood Lability, Anxiety, Agitation, Cravings, Hallucinations, Suicidal Ideation Systems Review Comment:: Woke up in the middle of the night confused and did not know where she was. She states she remembers getting blood but she thought it was from "druggies blood" . She is now back to her baseline alert and wake. Her Hgb is at 9.1. She states she feels much better this morning since she had gotten the blood. However she is sore on her lower back. - Patient Data Vitals - Most Recent: Last Vital Signs Temp 36.6 C 02/20/19 03:22 Pulse 86 02/20/19 04:00 Resp 18 02/20/19 03:22 BP 124/60 02/20/19 03:22 Pulse Ox 99 02/20/19 04:00 Weight - Most Recent: 77.836 kg I&O - Last 24 Hours: Intake & Output 02/19/19 02/20/19 02/20/19 22:59 06:59 14:59 Intake Total 1671 800 Output Total 601 1950 Balance 1070 -1150 Lab Results Last 24 Hours: Laboratory Results - last 24 hr 02/16/19 02/16/19 02/19/19 Range/Units 06:07 14:38 06:05 Manual Slide Review Abnormal smear Blood Type O POSITIVE Gel Antibody Screen Negative Crossmatch See Detail See Detail Med Orders - Current: Current Medications Acetaminophen (Tylenol) 650 mg PO Q4H PRN PRN Reason: Pain (Mild 1-3)/fever Hydrocodone Bitart/Acetaminophen ([place] 325-5 Mg) 1 tab PO Q4H PRN PRN Reason: Pain (moderate 4-6) Last Admin: 02/20/19 03:41 Dose: 1 tab Albuterol/Ipratropium (Duoneb 3.0-0.5 Mg/3 Ml) 3 ml NEB Q4H PRN PRN Reason: Shortness Of Breath/wheezing Bisacodyl (Dulcolax) 5 mg PO DAILY PRN PRN Reason: Constipation Last Admin: 02/18/19 06:36 Dose: 5 mg Bisacodyl (Dulcolax) 10 mg RECTAL DAILY PRN PRN Reason: Constipation Last Admin: 02/18/19 22:03 Dose: 10 mg Cholecalciferol (Vitamin D3) 5,000 unit PO DAILY [facility] Last Admin: 02/19/19 10:03 Dose: 5,000 unit Cyclobenzaprine HCl (Flexeril) 10 mg PO TID PRN PRN Reason: Muscle spasms Last Admin: 02/18/19 17:45 Dose: 10 mg Enoxaparin Sodium (Lovenox) 30 mg SUBCUT BID [facility] Last Admin: 02/19/19 21:26 Dose: 30 mg Promethazine HCl 6.25 mg/ (Sodium Chloride) 50.25 mls @ 100 mls/hr IV Q6H PRN PRN Reason: Nausea/Vomiting Sodium Chloride (Normal Saline) 250 mls @ 25 mls/hr IV ASDIRECTED [facility] Last Admin: 02/19/19 16:41 Dose: 25 mls/hr Lorazepam (Ativan) 0.25 mg IV Q6H PRN PRN Reason: Anxiety Midodrine (Midodrine) 10 mg PO TID PRN PRN Reason: hypotension Naloxone HCl (Narcan) 0.1 mg IVPUSH Q5M PRN PRN Reason: Oversedation Ondansetron HCl (Zofran) 4 mg IV Q4H PRN PRN Reason: Nausea/Vomiting Last Admin: 02/19/19 12:10 Dose: 4 mg Pantoprazole Sodium (Protonix) 40 mg PO Q12H [facility] Last Admin: 02/19/19 21:26 Dose: 40 mg Synthroid 150 Mcg (Tab) 0 each PO ACBREAKFAST [facility] Last Admin: 02/20/19 05:05 Dose: 1 each Polyethylene Glycol (Miralax) 17 gm PO DAILY PRN PRN Reason: Constipation Senna/Docusate Sodium (Senna Plus) 1 tab PO BID PRN PRN Reason: Constipation Last Admin: 02/17/19 20:01 Dose: 1 tab Sodium Chloride (Saline Flush) 10 ml FLUSH ASDIRECTED PRN PRN Reason: Keep Vein Open Last Admin: 02/15/19 18:51 Dose: 10 ml Discontinued Medications Acetaminophen (Tylenol) 650 mg PO NOW ONE Stop: 02/19/19 11:06 Last Admin: 02/19/19 12:43 Dose: 650 mg Bupivacaine HCl (Sensorcaine-Mpf 0.25%) Confirm Administered Dose 30 ml .ROUTE .STK-MED ONE Stop: 02/17/19 07:33 Last Admin: 02/17/19 13:14 Dose: 30 ml Cefazolin Sodium (Ancef) Confirm Administered Dose 2 gm .ROUTE .STK-MED ONE Stop: 02/17/19 07:33 Last Admin: 02/17/19 13:09 Dose: 2 gm Cefazolin Sodium (Ancef) Confirm Administered Dose 2 gm .ROUTE .STK-MED ONE Stop: 02/17/19 08:11 Cefazolin Sodium (Ancef) Confirm Administered Dose 2 gm .ROUTE .STK-MED ONE Stop: 02/17/19 12:49 Morphine Sulfate 8 mg/Epinephrine HCl 0.3 mg/Cefuroxime Sodium 750 mg/Ketorolac Tromethamine 30 mg/Sodium Chloride 27.9 ml 0 mg .XX ONETIME ONE Stop: 02/17/19 09:01 Last Admin: 02/17/19 17:29 Dose: Not Given Cyclobenzaprine HCl (Flexeril) 10 mg PO ONETIME ONE Stop: 02/15/19 21:53 Last Admin: 02/15/19 21:57 Dose: 10 mg Dexamethasone (Dexamethasone) Confirm Administered Dose 20 mg .ROUTE .STK-MED ONE Stop: 02/17/19 08:11 Dexamethasone (Dexamethasone) 4 mg IVPUSH ONETIME ONE Stop: 02/19/19 11:06 Last Admin: 02/19/19 12:43 Dose: 4 mg Diphenhydramine HCl (Benadryl) 25 mg IV ONETIME ONE Stop: 02/19/19 11:06 Last Admin: 02/19/19 12:43 Dose: 25 mg Docusate Sodium (Colace) 100 mg PO BID PRN PRN Reason: Constipation Ephedrine Sulfate (Ephedrine In Ns) Confirm Administered Dose 25 mg .ROUTE .STK- MED ONE Stop: 02/17/19 08:11 Ephedrine Sulfate (Ephedrine Sulfate) 5 mg IVPUSH ASDIRECTED PRN PRN Reason: Hypotension Stop: 02/17/19 23:00 Fentanyl (Sublimaze) Confirm Administered Dose 250 mcg .ROUTE .STK-MED ONE Stop: 02/17/19 08:11 Fentanyl (Sublimaze) 50 mcg IVPUSH Q5M PRN PRN Reason: Pain Stop: 02/17/19 23:00 Glycopyrrolate () Confirm Administered Dose 1 mg .ROUTE .STK-MED ONE Stop: 02/17/19 13:32 Heparin Sodium (Porcine) (Heparin Sodium) 5,000 units SUBCUT Q8H DAISY Last Admin: 02/16/19 21:08 Dose: 5,000 units Hydromorphone HCl (Dilaudid) 0.25 mg IVPUSH ONETIME ONE Stop: 02/15/19 18:21 Last Admin: 02/15/19 18:48 Dose: 0.25 mg Hydromorphone HCl (Dilaudid) 0.25 mg IVPUSH Q2H PRN PRN Reason: Pain (severe 7-10) Last Admin: 02/16/19 01:48 Dose: 0.25 mg Hydromorphone HCl (Dilaudid) Confirm Administered Dose 0.5 mg .ROUTE .STK-MED ONE Stop: 02/17/19 13:37 Hydromorphone HCl (Dilaudid) 0.25 mg IVPUSH Q15M PRN PRN Reason: severe pain Stop: 02/17/19 23:00 Lidocaine HCl (Xylocaine-Mpf 1%) Confirm Administered Dose 4 mls @ as directed .ROUTE .STK-MED ONE Stop: 02/17/19 08:11 Lactated Ringer's (Ringers, Lactated) Confirm Administered Dose 1,000 mls @ as directed .ROUTE .STK-MED ONE Stop: 02/17/19 08:11 Lidocaine HCl (Xylocaine-Mpf 1%) Confirm Administered Dose 2 mls @ as directed .ROUTE .STK-MED ONE Stop: 02/17/19 08:11 Cefazolin Sodium/Dextrose 2 gm (/ Premix) 50 mls @ 100 mls/hr IV Q8H [facility] Stop: 02/18/19 08:59 Last Admin: 02/17/19 19:38 Dose: Not Given Sodium Chloride (Normal Saline) Confirm Administered Dose 1,000 mls @ as directed .ROUTE .STK-MED ONE Stop: 02/17/19 10:06 Sodium Chloride (Normal Saline) Confirm Administered Dose 100 mls @ as directed .ROUTE .STK-MED ONE Stop: 02/17/19 11:28 Sodium Chloride (Normal Saline) Confirm Administered Dose 250 mls @ as directed .ROUTE .STK-MED ONE Stop: 02/17/19 12:36 Lactated Ringer's (Ringers, Lactated) 1,000 mls @ 125 mls/hr IV ASDIRECTED [facility] Last Admin: 02/17/19 15:32 Dose: 125 mls/hr Cefazolin Sodium/Dextrose 2 gm (/ Premix) 50 mls @ 100 mls/hr IV Q8H [facility] Stop: 02/18/19 11:59 Last Admin: 02/18/19 11:13 Dose: 100 mls/hr Sodium Chloride (Normal Saline) 500 mls @ 999 mls/hr IV .BOLUS ONE Stop: 02/18/19 13:30 Last Admin: 02/18/19 13:00 Dose: 999 mls/hr Iodine (Iodine 2% Mild Tincture) Confirm Administered Dose 30 ml .ROUTE .STK- MED ONE Stop: 02/17/19 07:33 Last Admin: 02/17/19 13:08 Dose: 30 ml Ketamine HCl (Ketalar) Confirm Administered Dose 500 mg .ROUTE .STK-MED ONE Stop: 02/17/19 09:47 Ketorolac Tromethamine (Toradol) 30 mg IV Q6H PRN PRN Reason: Pain (moderate 4-6) Ketorolac Tromethamine (Toradol) 15 mg IVPUSH Q6H PRN PRN Reason: Pain (moderate 4-6) Last Admin: 02/16/19 09:42 Dose: 15 mg Levothyroxine Sodium (Levothyroxine) 150 mcg PO ACBREAKFAST [facility] Last Admin: 02/18/19 14:04 Dose: Not Given Morphine Sulfate (Morphine) 2 mg IVPUSH ONETIME ONE Stop: 02/15/19 21:13 Last Admin: 02/15/19 21:23 Dose: 2 mg Neostigmine Methylsulfate (Neostigmine) Confirm Administered Dose 5 mg .ROUTE .STK-MED ONE Stop: 02/17/19 13:32 Ondansetron HCl (Zofran) 4 mg IVPUSH ONETIME ONE Stop: 02/15/19 21:12 Last Admin: 02/15/19 21:19 Dose: 4 mg Ondansetron HCl (Zofran) Confirm Administered Dose 4 mg .ROUTE .STK-MED ONE Stop: 02/17/19 08:11 Ondansetron HCl (Zofran) 4 mg IVPUSH ONETIME PRN PRN Reason: Nausea/Vomiting Stop: 02/17/19 23:00 Pantoprazole Sodium (Protonix Iv) 40 mg IV Q12HR DAISY Last Admin: 02/16/19 09:29 Dose: 40 mg Phenylephrine HCl (Phenylephrine In Ns 100 Mcg/Ml) Confirm Administered Dose 1 mg .ROUTE .STK-MED ONE Stop: 02/17/19 08:12 Phenylephrine HCl (Bahman-Synephrine) Confirm Administered Dose 10 mg .ROUTE .STK- MED ONE Stop: 02/17/19 11:29 Propofol (Diprivan 20 Ml) Confirm Administered Dose 400 mg .ROUTE .STK-MED ONE Stop: 02/17/19 08:11 Rocuronium Ehrhardt (Zemuron) Confirm Administered Dose 50 mg .ROUTE .STK-MED ONE Stop: 02/17/19 08:11 Tranexamic Acid (Cyklokapron) Confirm Administered Dose 1,000 mg .ROUTE .STK- MED ONE Stop: 02/17/19 07:33 Last Admin: 02/17/19 13:22 Dose: 1,000 mg Vancomycin HCl (Vancomycin) Confirm Administered Dose 1 gm .ROUTE .STK-MED ONE Stop: 02/17/19 07:33 Last Admin: 02/17/19 15:00 Dose: 1 gm - Exam General: Alert, Oriented, Cooperative, No Acute Distress HEENT: Pupils Equal, Pupils Reactive, EOMI Neck: Supple, Trachea Midline, No JVD Lungs: Normal Respiratory Effort, Decreased Breath Sounds Cardiovascular: Regular Rate, Regular Rhythm GI/Abdominal Exam: Normal Bowel Sounds, Soft, Non-Tender, No Organomegaly, No Distention, No Abnormal Bruit, No Mass, Pelvis Stable (Female) Exam: Deferred Back Exam: Normal Inspection, Decreased Range of Motion Extremities: Normal Inspection, Normal Range of Motion, Non-Tender, No Pedal Edema, Normal Capillary Refill Peripheral Pulses: 0: Posterior Tibial (R), 2+: Dorsalis Pedis (L), Dorsalis Pedis (R) Skin: Warm, Dry, Intact, Ecchymosis (surgical site) Neurological: No New Focal Deficit. No: Normal Gait Psy/Mental Status: Alert, Normal Affect, Normal Mood - Problem List Review Problem List Initiated/Reviewed/Updated: Yes - My Orders Last 24 Hours: My Active Orders 02/19/19 11:05 Blood Transfusion Reflex Orders [OM.PC] Routine Transfuse Red Blood Cells [COMM] Routine 02/19/19 12:45 Sodium Chloride 0.9% [Normal Saline] 250 ml IV ASDIRECTED 02/20/19 06:45 CBC WITH AUTO DIFF [HEME] AM MAGNESIUM [CHEM] AM - Plan Plan:: I/P: Acute: Post-Operative Anemia - Hgb of 6.9; baseline of 10.7--> 9.1 grams - Meets criteria for transfusion - S/p 2 units of PRBC for transfusions - She feels much better this morning Right Hip Fracture 2/2 Fall, Stable - Twisted to get cooler, felt pain, fell which resulted in worsening pain - Right leg noted to be externally rotated and shortened - Lumbar and thoracic spine CT negative for acute findings -L2 compression fx noted which is felt to be old - X-ray and CT of right hip show Proximal diaphyseal fracture surrounding right hip prothesis; Bilateral hip prothesis - Dr. Paris, Orthopedic surgeon consulted in ED - Ordering specialty equipment - Plan for surgery 02/17/19 AM - NPO at midnight tonight - PT/OT post surgery - Pain medications as ordered - Arguello catheter placed - Flexeril PRN - MRSA negative - 12-lead EKG shows NSR with no ectopy - CXR shows nothing acute - Denies any prior heart or lung problems; Only medication is levothyroxine - TSH 0.03; FT4 is 1.18; cut down dose of thyroid medication (was told she wants to use her home medication-defer pharmacy to okay it) - Will order type and screen and prepare 2 units if needed for surgery Back Pain - Sore from not moving - Offered Lidocaine Patch Daily (better option than narcotics) S/p Confusion - 2/2 Medication Side Effects - She is on flexeril and narcotics for pain management - Advised nurse to be cautious giving above medications Vitamin D deficiency - Vitamin D 13.0 (30-100) - Continue oral supplementation Post- Operative Surgery - She is clinically stable but not hemodynamically when she was working with PT this morning and at noon - Pain is controlled - Educated about pain management and narcotic use Resolved: Pre-Operative Risk Stratification - Risk factors: None - METS > 4, SVS, EKG /CXR: benign - Physical exam fairly benign - No recent cardiac or lung eval - No active cardiac or lung disease - Based on the data provided, the patient carries mild cardiac risk for intermediate surgical risk S/p Vasovagal Near Syncope - 2 episodes with blood pressure bottoming out - She is likely volume depleted complicated by narcotic side effects - Cautioned on narcotic/benzo use - NS 500 mg l Bolus x1; will repeat H/H at 1800 Chronic: Raynaud's disease Recurrent PNA Arthritis Hypothyroidism Plan: She is otherwise clinically stable except for the brief episode of confusion last night Other orders as indicated above CM/SW for discharge planning Routine AM labs DVT prophylaxis: SCDs and Lovenox SubQ BID Code status: Full code; PCP: None locally Additional orders a above LOS > 96hrs pending placement to [place] Thursday Updated daughter RN form out of state about her clinical progress, even overnight, morning labs, treatment and discharge care plan
[2019-02-20] MEDS: Cholecalciferol (Vitamin D3) 5,000 UNIT Tab PO SCH (08:25)
[2019-02-20] MEDS: Pantoprazole 40 MG Tab.CR PO SCH ×2 (08:25→21:37)
[2019-02-20] MEDS: Enoxaparin 30 MG/0.3 ML Syringe SUBCUT SCH ×2 (08:25→21:37)
--- NOTE | 2019-02-20 11:47 | PCM.SURGPN ---
- General Info Date of Service: 02/20/19 POD#: 3 Functional Status: Reports: Pain Controlled, Tolerating Diet, Ambulating, Incentive Spirometry, Other (The pt states she has walked a short distances in her room.) - Patient Data Vitals - Most Recent: Last Vital Signs Temp 97.3 F 02/20/19 07:34 Pulse 80 02/20/19 07:34 Resp 20 02/20/19 07:34 BP 128/50 L 02/20/19 07:34 Pulse Ox 100 02/20/19 07:57 Weight - Most Recent: 171 lb 9.6 oz I&O - Last 24 Hours: Intake & Output 02/19/19 02/20/19 02/20/19 22:59 06:59 14:59 Intake Total 1671 800 180 Output Total 601 1950 Balance 1070 -1150 180 Lab Results Last 24 Hrs: Laboratory Results - last 24 hr 02/16/19 02/20/19 02/20/19 Range/Units 06:07 06:45 06:45 WBC 8.96 (3.98-10.04) K/mm3 RBC 2.95 L (3.98-5.22) M/mm3 Hgb 9.1 L D (11.2-15.7) gm/L Hct 27.5 L (34.1-44.9) % MCV 93.2 D (79.4-94.8) fl MCH 30.8 (25.6-32.2) pg MCHC 33.1 (32.2-35.5) g/dl RDW Std Deviation 60.6 H (36.4-46.3) fL Plt Count 187 (182-369) K/mm3 MPV 11.0 (9.4-12.3) fl Neut % (Auto) 77.6 H (34.0-71.1) % Lymph % (Auto) 13.6 L (19.3-51.7) % [place] % (Auto) 7.5 (4.7-12.5) % Eos % (Auto) 0.3 L (0.7-5.8) Baso % (Auto) 0.1 (0.1-1.2) % Neut # (Auto) 6.95 H (1.56-6.13) K/mm3 Lymph # (Auto) 1.22 (1.18-3.74) K/mm3 [place] # (Auto) 0.67 H (0.24-0.36) K/mm3 Eos # (Auto) 0.03 L (0.04-0.36) K/mm3 Baso # (Auto) 0.01 (0.01-0.08) K/mm3 Manual Slide Review Abnormal smear Sodium 141 (136-145) mEq/L Potassium 4.3 (3.5-5.1) mEq/L Chloride 108 H (98-107) mEq/L Carbon Dioxide 28 (21-32) mEq/L Anion Gap 9.3 (5-15) BUN 11 (7-18) mg/dL Creatinine 0.6 (0.55-1.02) mg/dL Est Cr Clr Drug Dosing 65.05 mL/min Estimated GFR (MDRD) > 60 (>60) mL/min BUN/Creatinine Ratio 18.3 H (14-18) Glucose 93 (83-115) mg/dL Calcium 7.8 L (8.5-10.1) mg/dL Magnesium 2.2 (1.8-2.4) mg/dl Total Bilirubin 0.8 (0.2-1.0) mg/dL AST 44 H (15-37) U/L ALT 29 (14-59) U/L Alkaline Phosphatase 47 (46-116) U/L Total Protein 5.5 L (6.4-8.2) g/dl Albumin 2.3 L (3.4-5.0) g/dl Globulin 3.2 gm/dL Albumin/Globulin Ratio 0.7 L (1-2) Blood Type O POSITIVE Gel Antibody Screen Negative Crossmatch See Detail Med Orders - Current: Current Medications Acetaminophen (Tylenol) 650 mg PO Q4H PRN PRN Reason: Pain (Mild 1-3)/fever Hydrocodone Bitart/Acetaminophen ([place] 325-5 Mg) 1 tab PO Q4H PRN PRN Reason: Pain (moderate 4-6) Last Admin: 02/20/19 11:15 Dose: 1 tab Albuterol/Ipratropium (Duoneb 3.0-0.5 Mg/3 Ml) 3 ml NEB Q4H PRN PRN Reason: Shortness Of Breath/wheezing Bisacodyl (Dulcolax) 5 mg PO DAILY PRN PRN Reason: Constipation Last Admin: 02/18/19 06:36 Dose: 5 mg Bisacodyl (Dulcolax) 10 mg RECTAL DAILY PRN PRN Reason: Constipation Last Admin: 02/18/19 22:03 Dose: 10 mg Cholecalciferol (Vitamin D3) 5,000 unit PO DAILY [facility] Last Admin: 02/20/19 08:25 Dose: 5,000 unit Cyclobenzaprine HCl (Flexeril) 10 mg PO TID PRN PRN Reason: Muscle spasms Last Admin: 02/18/19 17:45 Dose: 10 mg Enoxaparin Sodium (Lovenox) 30 mg SUBCUT BID [facility] Last Admin: 02/20/19 08:25 Dose: 30 mg Promethazine HCl 6.25 mg/ (Sodium Chloride) 50.25 mls @ 100 mls/hr IV Q6H PRN PRN Reason: Nausea/Vomiting Sodium Chloride (Normal Saline) 250 mls @ 25 mls/hr IV ASDIRECTED [facility] Last Admin: 02/19/19 16:41 Dose: 25 mls/hr Lorazepam (Ativan) 0.25 mg IV Q6H PRN PRN Reason: Anxiety Midodrine (Midodrine) 10 mg PO TID PRN PRN Reason: hypotension Naloxone HCl (Narcan) 0.1 mg IVPUSH Q5M PRN PRN Reason: Oversedation Ondansetron HCl (Zofran) 4 mg IV Q4H PRN PRN Reason: Nausea/Vomiting Last Admin: 02/19/19 12:10 Dose: 4 mg Pantoprazole Sodium (Protonix) 40 mg PO Q12H [facility] Last Admin: 02/20/19 08:25 Dose: 40 mg Synthroid 150 Mcg (Tab) 0 each PO ACBREAKFAST [facility] Last Admin: 02/20/19 05:05 Dose: 1 each Polyethylene Glycol (Miralax) 17 gm PO DAILY PRN PRN Reason: Constipation Senna/Docusate Sodium (Senna Plus) 1 tab PO BID [facility] Sodium Chloride (Saline Flush) 10 ml FLUSH ASDIRECTED PRN PRN Reason: Keep Vein Open Last Admin: 02/15/19 18:51 Dose: 10 ml Discontinued Medications Acetaminophen (Tylenol) 650 mg PO NOW ONE Stop: 02/19/19 11:06 Last Admin: 02/19/19 12:43 Dose: 650 mg Bupivacaine HCl (Sensorcaine-Mpf 0.25%) Confirm Administered Dose 30 ml .ROUTE .STK-MED ONE Stop: 02/17/19 07:33 Last Admin: 02/17/19 13:14 Dose: 30 ml Cefazolin Sodium (Ancef) Confirm Administered Dose 2 gm .ROUTE .STK-MED ONE Stop: 02/17/19 07:33 Last Admin: 02/17/19 13:09 Dose: 2 gm Cefazolin Sodium (Ancef) Confirm Administered Dose 2 gm .ROUTE .STK-MED ONE Stop: 02/17/19 08:11 Cefazolin Sodium (Ancef) Confirm Administered Dose 2 gm .ROUTE .STK-MED ONE Stop: 02/17/19 12:49 Morphine Sulfate 8 mg/Epinephrine HCl 0.3 mg/Cefuroxime Sodium 750 mg/Ketorolac Tromethamine 30 mg/Sodium Chloride 27.9 ml 0 mg .XX ONETIME ONE Stop: 02/17/19 09:01 Last Admin: 02/17/19 17:29 Dose: Not Given Cyclobenzaprine HCl (Flexeril) 10 mg PO ONETIME ONE Stop: 02/15/19 21:53 Last Admin: 02/15/19 21:57 Dose: 10 mg Dexamethasone (Dexamethasone) Confirm Administered Dose 20 mg .ROUTE .STK-MED ONE Stop: 02/17/19 08:11 Dexamethasone (Dexamethasone) 4 mg IVPUSH ONETIME ONE Stop: 02/19/19 11:06 Last Admin: 02/19/19 12:43 Dose: 4 mg Diphenhydramine HCl (Benadryl) 25 mg IV ONETIME ONE Stop: 02/19/19 11:06 Last Admin: 02/19/19 12:43 Dose: 25 mg Docusate Sodium (Colace) 100 mg PO BID PRN PRN Reason: Constipation Ephedrine Sulfate (Ephedrine In Ns) Confirm Administered Dose 25 mg .ROUTE .STK- MED ONE Stop: 02/17/19 08:11 Ephedrine Sulfate (Ephedrine Sulfate) 5 mg IVPUSH ASDIRECTED PRN PRN Reason: Hypotension Stop: 02/17/19 23:00 Fentanyl (Sublimaze) Confirm Administered Dose 250 mcg .ROUTE .STK-MED ONE Stop: 02/17/19 08:11 Fentanyl (Sublimaze) 50 mcg IVPUSH Q5M PRN PRN Reason: Pain Stop: 02/17/19 23:00 Glycopyrrolate () Confirm Administered Dose 1 mg .ROUTE .STK-MED ONE Stop: 02/17/19 13:32 Heparin Sodium (Porcine) (Heparin Sodium) 5,000 units SUBCUT Q8H [facility] Last Admin: 02/16/19 21:08 Dose: 5,000 units Hydromorphone HCl (Dilaudid) 0.25 mg IVPUSH ONETIME ONE Stop: 02/15/19 18:21 Last Admin: 02/15/19 18:48 Dose: 0.25 mg Hydromorphone HCl (Dilaudid) 0.25 mg IVPUSH Q2H PRN PRN Reason: Pain (severe 7-10) Last Admin: 02/16/19 01:48 Dose: 0.25 mg Hydromorphone HCl (Dilaudid) Confirm Administered Dose 0.5 mg .ROUTE .STK-MED ONE Stop: 02/17/19 13:37 Hydromorphone HCl (Dilaudid) 0.25 mg IVPUSH Q15M PRN PRN Reason: severe pain Stop: 02/17/19 23:00 Lidocaine HCl (Xylocaine-Mpf 1%) Confirm Administered Dose 4 mls @ as directed .ROUTE .STK-MED ONE Stop: 02/17/19 08:11 Lactated Ringer's (Ringers, Lactated) Confirm Administered Dose 1,000 mls @ as directed .ROUTE .STK-MED ONE Stop: 02/17/19 08:11 Lidocaine HCl (Xylocaine-Mpf 1%) Confirm Administered Dose 2 mls @ as directed .ROUTE .STK-MED ONE Stop: 02/17/19 08:11 Cefazolin Sodium/Dextrose 2 gm (/ Premix) 50 mls @ 100 mls/hr IV Q8H [facility] Stop: 02/18/19 08:59 Last Admin: 02/17/19 19:38 Dose: Not Given Sodium Chloride (Normal Saline) Confirm Administered Dose 1,000 mls @ as directed .ROUTE .STK-MED ONE Stop: 02/17/19 10:06 Sodium Chloride (Normal Saline) Confirm Administered Dose 100 mls @ as directed .ROUTE .STK-MED ONE Stop: 02/17/19 11:28 Sodium Chloride (Normal Saline) Confirm Administered Dose 250 mls @ as directed .ROUTE .STK-MED ONE Stop: 02/17/19 12:36 Lactated Ringer's (Ringers, Lactated) 1,000 mls @ 125 mls/hr IV ASDIRECTED [facility] Last Admin: 02/17/19 15:32 Dose: 125 mls/hr Cefazolin Sodium/Dextrose 2 gm (/ Premix) 50 mls @ 100 mls/hr IV Q8H [facility] Stop: 02/18/19 11:59 Last Admin: 02/18/19 11:13 Dose: 100 mls/hr Sodium Chloride (Normal Saline) 500 mls @ 999 mls/hr IV .BOLUS ONE Stop: 02/18/19 13:30 Last Admin: 02/18/19 13:00 Dose: 999 mls/hr Iodine (Iodine 2% Mild Tincture) Confirm Administered Dose 30 ml .ROUTE .STK- MED ONE Stop: 02/17/19 07:33 Last Admin: 02/17/19 13:08 Dose: 30 ml Ketamine HCl (Ketalar) Confirm Administered Dose 500 mg .ROUTE .STK-MED ONE Stop: 02/17/19 09:47 Ketorolac Tromethamine (Toradol) 30 mg IV Q6H PRN PRN Reason: Pain (moderate 4-6) Ketorolac Tromethamine (Toradol) 15 mg IVPUSH Q6H PRN PRN Reason: Pain (moderate 4-6) Last Admin: 02/16/19 09:42 Dose: 15 mg Levothyroxine Sodium (Levothyroxine) 150 mcg PO ACBREAKFAST [facility] Last Admin: 02/18/19 14:04 Dose: Not Given Morphine Sulfate (Morphine) 2 mg IVPUSH ONETIME ONE Stop: 02/15/19 21:13 Last Admin: 02/15/19 21:23 Dose: 2 mg Neostigmine Methylsulfate (Neostigmine) Confirm Administered Dose 5 mg .ROUTE .STK-MED ONE Stop: 02/17/19 13:32 Ondansetron HCl (Zofran) 4 mg IVPUSH ONETIME ONE Stop: 02/15/19 21:12 Last Admin: 02/15/19 21:19 Dose: 4 mg Ondansetron HCl (Zofran) Confirm Administered Dose 4 mg .ROUTE .STK-MED ONE Stop: 02/17/19 08:11 Ondansetron HCl (Zofran) 4 mg IVPUSH ONETIME PRN PRN Reason: Nausea/Vomiting Stop: 02/17/19 23:00 Pantoprazole Sodium (Protonix Iv) 40 mg IV Q12HR [facility]ISY Last Admin: 02/16/19 09:29 Dose: 40 mg Phenylephrine HCl (Phenylephrine In Ns 100 Mcg/Ml) Confirm Administered Dose 1 mg .ROUTE .STK-MED ONE Stop: 02/17/19 08:12 Phenylephrine HCl ([place]-Synephrine) Confirm Administered Dose 10 mg .ROUTE .STK- MED ONE Stop: 02/17/19 11:29 Propofol (Diprivan 20 Ml) Confirm Administered Dose 400 mg .ROUTE .STK-MED ONE Stop: 02/17/19 08:11 Rocuronium [place] (Zemuron) Confirm Administered Dose 50 mg .ROUTE .STK-MED ONE Stop: 02/17/19 08:11 Senna/Docusate Sodium (Senna Plus) 1 tab PO BID PRN PRN Reason: Constipation Last Admin: 02/17/19 20:01 Dose: 1 tab Tranexamic Acid (Cyklokapron) Confirm Administered Dose 1,000 mg .ROUTE .STK- MED ONE Stop: 02/17/19 07:33 Last Admin: 02/17/19 13:22 Dose: 1,000 mg Vancomycin HCl (Vancomycin) Confirm Administered Dose 1 gm .ROUTE .STK-MED ONE Stop: 02/17/19 07:33 Last Admin: 02/17/19 15:00 Dose: 1 gm - Exam Wound/Incisions: Other (Area of bleeding at mid portion of dressing outlined today.) General: Alert, Cooperative, No Acute Distress Lungs: Normal Respiratory Effort Extremities: Other (NVS intact for BLE. [place]'s negative. Right thigh soft, nontender.) - Problem List Review Problem List Initiated/Reviewed/Updated: Yes - My Orders Last 24 Hours: Active Orders 24 hr Category Date Time Status Supplement (Dietary) [Dietary Supplements] [RC] Q8HR Care 02/20/19 10:26 Active Docusate Sodium/Sennosides [Senna Plus] Med 02/20/19 21:00 Active 1 tab PO BID Sodium Chloride 0.9% [Normal Saline] 250 ml Med 02/19/19 12:45 Active IV ASDIRECTED Blood Transfusion Reflex Orders [OM.PC] Routine Oth 02/19/19 11:05 Ordered Transfuse Red Blood Cells [COMM] Routine Oth 02/19/19 11:05 Ordered Medication Orders Acetaminophen (Tylenol) 650 mg PO Q4H PRN PRN Reason: Pain (Mild 1-3)/fever Hydrocodone Bitart/Acetaminophen ([place] 325-5 Mg) 1 tab PO Q4H PRN PRN Reason: Pain (moderate 4-6) Last Admin: 02/20/19 11:15 Dose: 1 tab Admin: 02/20/19 03:41 Dose: 1 tab Admin: 02/19/19 18:43 Dose: 1 tab Admin: 02/19/19 12:10 Dose: 1 tab Admin: 02/19/19 05:47 Dose: 1 tab Admin: 02/18/19 21:47 Dose: 1 tab Admin: 02/18/19 17:45 Dose: 1 tab Admin: 02/18/19 11:32 Dose: 1 tab Admin: 02/18/19 04:56 Dose: 1 tab Admin: 02/18/19 00:21 Dose: 1 tab Admin: 02/17/19 20:01 Dose: 1 tab Admin: 02/17/19 04:12 Dose: 1 tab Admin: 02/16/19 21:57 Dose: 1 tab Admin: 02/16/19 17:51 Dose: 1 tab Admin: 02/16/19 14:04 Dose: 1 tab Admin: 02/16/19 09:28 Dose: 1 tab Admin: 02/16/19 05:26 Dose: 1 tab Admin: 02/15/19 22:59 Dose: 1 tab Albuterol/Ipratropium (Duoneb 3.0-0.5 Mg/3 Ml) 3 ml NEB Q4H PRN PRN Reason: Shortness Of Breath/wheezing Bisacodyl (Dulcolax) 5 mg PO DAILY PRN PRN Reason: Constipation Last Admin: 02/18/19 06:36 Dose: 5 mg Bisacodyl (Dulcolax) 10 mg RECTAL DAILY PRN PRN Reason: Constipation Last Admin: 02/18/19 22:03 Dose: 10 mg Cholecalciferol (Vitamin D3) 5,000 unit PO DAILY [facility] Last Admin: 02/20/19 08:25 Dose: 5,000 unit Admin: 02/19/19 10:03 Dose: 5,000 unit Admin: 02/18/19 09:17 Dose: 5,000 unit Admin: 02/17/19 09:00 Dose: Not Given Cyclobenzaprine HCl (Flexeril) 10 mg PO TID PRN PRN Reason: Muscle spasms Last Admin: 02/18/19 17:45 Dose: 10 mg Admin: 02/18/19 05:17 Dose: 10 mg Admin: 02/16/19 16:27 Dose: 10 mg Admin: 02/16/19 09:42 Dose: 10 mg Enoxaparin Sodium (Lovenox) 30 mg SUBCUT BID [facility] Last Admin: 02/20/19 08:25 Dose: 30 mg Admin: 02/19/19 21:26 Dose: 30 mg Admin: 02/19/19 10:03 Dose: 30 mg Admin: 02/18/19 21:48 Dose: 30 mg Admin: 02/18/19 10:08 Dose: 30 mg Promethazine HCl 6.25 mg/ (Sodium Chloride) 50.25 mls @ 100 mls/hr IV Q6H PRN PRN Reason: Nausea/Vomiting Sodium Chloride (Normal Saline) 250 mls @ 25 mls/hr IV ASDIRECTED [facility] Last Admin: 02/19/19 16:41 Dose: 25 mls/hr Lorazepam (Ativan) 0.25 mg IV Q6H PRN PRN Reason: Anxiety Midodrine (Midodrine) 10 mg PO TID PRN PRN Reason: hypotension Naloxone HCl (Narcan) 0.1 mg IVPUSH Q5M PRN PRN Reason: Oversedation Ondansetron HCl (Zofran) 4 mg IV Q4H PRN PRN Reason: Nausea/Vomiting Last Admin: 02/19/19 12:10 Dose: 4 mg Admin: 02/18/19 12:06 Dose: 4 mg Pantoprazole Sodium (Protonix) 40 mg PO Q12H [facility] Last Admin: 02/20/19 08:25 Dose: 40 mg Admin: 02/19/19 21:26 Dose: 40 mg Admin: 02/19/19 10:03 Dose: 40 mg Admin: 02/18/19 21:47 Dose: 40 mg Admin: 02/18/19 09:16 Dose: 40 mg Admin: 02/17/19 20:01 Dose: 40 mg Admin: 02/17/19 09:00 Dose: Not Given Admin: 02/16/19 21:08 Dose: 40 mg Synthroid 150 Mcg (Tab) 0 each PO ACBREAKFAST [facility] Last Admin: 02/20/19 05:05 Dose: 1 each Admin: 02/19/19 05:46 Dose: 1 each Admin: 02/18/19 11:11 Dose: 1 each Polyethylene Glycol (Miralax) 17 gm PO DAILY PRN PRN Reason: Constipation Senna/Docusate Sodium (Senna Plus) 1 tab PO BID [facility] Sodium Chloride (Saline Flush) 10 ml FLUSH ASDIRECTED PRN PRN Reason: Keep Vein Open Last Admin: 02/15/19 18:51 Dose: 10 ml - Assessment Assessment (Free Text/Narrative):: POD#3 - s/p surgical fixation right hip - Plan Plan (Free Text/Narrative):: 1. Lovenox BID for VTE prophylaxis. 2. Continue with P.T. and O.T. TTWB RLE. 3. Suspect discharge to [place] for continued rehab. The pt's case has been discussed with Dr. Paris.
[2019-02-20] MEDS ORDERED: Lidocaine 4% 1 each Patch TOP PRN (19:00)
[2019-02-20] MEDS: Lidocaine 4% 1 each Patch TOP SCH (21:36)
[2019-02-21] MEDS: Acetaminophen/HYDROcodone 325-5 MG Tab PO PRN ×2 (05:47→10:51)
[2019-02-21] MEDS: SYNTHROID 150 MCG PO SCH (05:48)
[2019-02-21] MEDS: Enoxaparin 30 MG/0.3 ML Syringe SUBCUT SCH ×2 (08:12→20:20)
[2019-02-21] MEDS: Cholecalciferol (Vitamin D3) 5,000 UNIT Tab PO SCH (08:12)
[2019-02-21] MEDS: Pantoprazole 40 MG Tab.CR PO SCH ×2 (08:12→20:20)
[2019-02-21] MEDS: Lidocaine 4% 1 each Patch TOP SCH (08:13)
--- NOTE | 2019-02-21 12:04 | PCM.PN ---
- General Info Date of Service: 02/21/19 Admission Dx/Problem (Free Text): Admission Diagnosis/Problem Admission Diagnosis/Problem Hip fracture requiring operative repair Subjective Update: Follow Up Functional Status: Reports: Pain Controlled, Tolerating Diet, Ambulating, Urinating - Review of Systems General: Denies: Fever, Weakness, Fatigue, Malaise, Chills HEENT: Reports: No Symptoms Pulmonary: Denies: Shortness of Breath Cardiovascular: Denies: Chest Pain, Dyspnea on Exertion, Lightheadedness Gastrointestinal: Reports: Constipation. Denies: Abdominal Pain, Nausea, Vomiting Genitourinary: Reports: No Symptoms Musculoskeletal: Reports: No Symptoms Skin: Reports: No Symptoms Neurological: Reports: Difficulty Walking, Weakness, Gait Disturbance. Denies: Confusion Psychiatric: Denies: Depression, Anxiety, Agitation, Hallucinations - Patient Data Vitals - Most Recent: Last Vital Signs Temp 36.5 C 02/21/19 08:00 Pulse 86 02/21/19 08:00 Resp 16 02/21/19 08:00 BP 121/40 L 02/21/19 08:11 Pulse Ox 99 02/21/19 08:00 Weight - Most Recent: 78.925 kg I&O - Last 24 Hours: Intake & Output 02/20/19 02/21/19 02/21/19 22:59 06:59 14:59 Intake Total 980 550 Output Total 500 900 Balance 480 -350 Lab Results Last 24 Hours: Laboratory Results - last 24 hr 02/21/19 Range/Units 10:02 WBC 10.11 H (3.98-10.04) K/mm3 RBC 3.17 L (3.98-5.22) M/mm3 Hgb 9.6 L (11.2-15.7) gm/L Hct 29.9 L (34.1-44.9) % MCV 94.3 (79.4-94.8) fl MCH 30.3 (25.6-32.2) pg MCHC 32.1 L (32.2-35.5) g/dl RDW Std Deviation 58.9 H (36.4-46.3) fL Plt Count 248 (182-369) K/mm3 MPV 11.2 (9.4-12.3) fl Neut % (Auto) 69.1 (34.0-71.1) % Lymph % (Auto) 18.7 L (19.3-51.7) % Bond % (Auto) 6.5 (4.7-12.5) % Eos % (Auto) 3.1 (0.7-5.8) Baso % (Auto) 0.3 (0.1-1.2) % Neut # (Auto) 6.99 H (1.56-6.13) K/mm3 Lymph # (Auto) 1.89 (1.18-3.74) K/mm3 Bond # (Auto) 0.66 H (0.24-0.36) K/mm3 Eos # (Auto) 0.31 (0.04-0.36) K/mm3 Baso # (Auto) 0.03 (0.01-0.08) K/mm3 Manual Slide Review Abnormal smear Med Orders - Current: Current Medications Acetaminophen (Tylenol) 650 mg PO Q4H PRN PRN Reason: Pain (Mild 1-3)/fever Hydrocodone Bitart/Acetaminophen ([place] 325-5 Mg) 1 tab PO Q4H PRN PRN Reason: Pain (moderate 4-6) Last Admin: 02/21/19 10:51 Dose: 1 tab Albuterol/Ipratropium (Duoneb 3.0-0.5 Mg/3 Ml) 3 ml NEB Q4H PRN PRN Reason: Shortness Of Breath/wheezing Bisacodyl (Dulcolax) 5 mg PO DAILY PRN PRN Reason: Constipation Last Admin: 02/18/19 06:36 Dose: 5 mg Bisacodyl (Dulcolax) 10 mg RECTAL DAILY PRN PRN Reason: Constipation Last Admin: 02/18/19 22:03 Dose: 10 mg Cholecalciferol (Vitamin D3) 5,000 unit PO DAILY DAISY Last Admin: 02/21/19 08:12 Dose: 5,000 unit Cyclobenzaprine HCl (Flexeril) 10 mg PO TID PRN PRN Reason: Muscle spasms Last Admin: 02/18/19 17:45 Dose: 10 mg Enoxaparin Sodium (Lovenox) 30 mg SUBCUT BID [facility] [place] Last Admin: 02/21/19 08:12 Dose: 30 mg Promethazine HCl 6.25 mg/ (Sodium Chloride) 50.25 mls @ 100 mls/hr IV Q6H PRN PRN Reason: Nausea/Vomiting Sodium Chloride (Normal Saline) 250 mls @ 25 mls/hr IV ASDIRECTED [facility] [place] Last Admin: 02/19/19 16:41 Dose: 25 mls/hr Lactulose (Cephulac) 20 gm PO BID [facility] [place] Lidocaine (Aspercreme 4%) 1 each TOP DAILY [facility] [place] Last Admin: 02/21/19 08:13 Dose: 1 each Lorazepam (Ativan) 0.25 mg IV Q6H PRN PRN Reason: Anxiety Midodrine (Midodrine) 10 mg PO TID PRN PRN Reason: hypotension Miscellaneous Information (Remove Patch) 1 ea TRDERM BEDTIME [facility] [place] Naloxone HCl (Narcan) 0.1 mg IVPUSH Q5M PRN PRN Reason: Oversedation Ondansetron HCl (Zofran) 4 mg IV Q4H PRN PRN Reason: Nausea/Vomiting Last Admin: 02/19/19 12:10 Dose: 4 mg Pantoprazole Sodium (Protonix) 40 mg PO Q12H [facility] [place] Last Admin: 02/21/19 08:12 Dose: 40 mg Synthroid 150 Mcg (Tab) 0 each PO ACBREAKFAST [facility] [place] Last Admin: 02/21/19 05:48 Dose: 1 each Polyethylene Glycol (Miralax) 17 gm PO DAILY PRN PRN Reason: Constipation Senna/Docusate Sodium (Senna Plus) 1 tab PO BID [facility] [place] Last Admin: 02/21/19 08:12 Dose: 1 tab Sodium Chloride (Saline Flush) 10 ml FLUSH ASDIRECTED PRN PRN Reason: Keep Vein Open Last Admin: 02/15/19 18:51 Dose: 10 ml Discontinued Medications Acetaminophen (Tylenol) 650 mg PO NOW ONE Stop: 02/19/19 11:06 Last Admin: 02/19/19 12:43 Dose: 650 mg Bupivacaine HCl (Sensorcaine-Mpf 0.25%) Confirm Administered Dose 30 ml .ROUTE .STK-MED ONE Stop: 02/17/19 07:33 Last Admin: 02/17/19 13:14 Dose: 30 ml Cefazolin Sodium (Ancef) Confirm Administered Dose 2 gm .ROUTE .STK-MED ONE Stop: 02/17/19 07:33 Last Admin: 02/17/19 13:09 Dose: 2 gm Cefazolin Sodium (Ancef) Confirm Administered Dose 2 gm .ROUTE .STK-MED ONE Stop: 02/17/19 08:11 Cefazolin Sodium (Ancef) Confirm Administered Dose 2 gm .ROUTE .STK-MED ONE Stop: 02/17/19 12:49 Morphine Sulfate 8 mg/Epinephrine HCl 0.3 mg/Cefuroxime Sodium 750 mg/Ketorolac Tromethamine 30 mg/Sodium Chloride 27.9 ml 0 mg .XX ONETIME ONE Stop: 02/17/19 09:01 Last Admin: 02/17/19 17:29 Dose: Not Given Cyclobenzaprine HCl (Flexeril) 10 mg PO ONETIME ONE Stop: 02/15/19 21:53 Last Admin: 02/15/19 21:57 Dose: 10 mg Dexamethasone (Dexamethasone) Confirm Administered Dose 20 mg .ROUTE .STK-MED ONE Stop: 02/17/19 08:11 Dexamethasone (Dexamethasone) 4 mg IVPUSH ONETIME ONE Stop: 02/19/19 11:06 Last Admin: 02/19/19 12:43 Dose: 4 mg Diphenhydramine HCl (Benadryl) 25 mg IV ONETIME ONE Stop: 02/19/19 11:06 Last Admin: 02/19/19 12:43 Dose: 25 mg Docusate Sodium (Colace) 100 mg PO BID PRN PRN Reason: Constipation Ephedrine Sulfate (Ephedrine In Ns) Confirm Administered Dose 25 mg .ROUTE .STK- MED ONE Stop: 02/17/19 08:11 Ephedrine Sulfate (Ephedrine Sulfate) 5 mg IVPUSH ASDIRECTED PRN PRN Reason: Hypotension Stop: 02/17/19 23:00 Fentanyl (Sublimaze) Confirm Administered Dose 250 mcg .ROUTE .STK-MED ONE Stop: 02/17/19 08:11 Fentanyl (Sublimaze) 50 mcg IVPUSH Q5M PRN PRN Reason: Pain Stop: 02/17/19 23:00 Glycopyrrolate () Confirm Administered Dose 1 mg .ROUTE .STK-MED ONE Stop: 02/17/19 13:32 Heparin Sodium (Porcine) (Heparin Sodium) 5,000 units SUBCUT Q8H DAISY Last Admin: 02/16/19 21:08 Dose: 5,000 units Hydromorphone HCl (Dilaudid) 0.25 mg IVPUSH ONETIME ONE Stop: 02/15/19 18:21 Last Admin: 02/15/19 18:48 Dose: 0.25 mg Hydromorphone HCl (Dilaudid) 0.25 mg IVPUSH Q2H PRN PRN Reason: Pain (severe 7-10) Last Admin: 02/16/19 01:48 Dose: 0.25 mg Hydromorphone HCl (Dilaudid) Confirm Administered Dose 0.5 mg .ROUTE .STK-MED ONE Stop: 02/17/19 13:37 Hydromorphone HCl (Dilaudid) 0.25 mg IVPUSH Q15M PRN PRN Reason: severe pain Stop: 02/17/19 23:00 Lidocaine HCl (Xylocaine-Mpf 1%) Confirm Administered Dose 4 mls @ as directed .ROUTE .STK-MED ONE Stop: 02/17/19 08:11 Lactated Ringer's (Ringers, Lactated) Confirm Administered Dose 1,000 mls @ as directed .ROUTE .STK-MED ONE Stop: 02/17/19 08:11 Lidocaine HCl (Xylocaine-Mpf 1%) Confirm Administered Dose 2 mls @ as directed .ROUTE .STK-MED ONE Stop: 02/17/19 08:11 Cefazolin Sodium/Dextrose 2 gm (/ Premix) 50 mls @ 100 mls/hr IV Q8H [facility] [place] Stop: 02/18/19 08:59 Last Admin: 02/17/19 19:38 Dose: Not Given Sodium Chloride (Normal Saline) Confirm Administered Dose 1,000 mls @ as directed .ROUTE .STK-MED ONE Stop: 02/17/19 10:06 Sodium Chloride (Normal Saline) Confirm Administered Dose 100 mls @ as directed .ROUTE .STK-MED ONE Stop: 02/17/19 11:28 Sodium Chloride (Normal Saline) Confirm Administered Dose 250 mls @ as directed .ROUTE .STK-MED ONE Stop: 02/17/19 12:36 Lactated Ringer's (Ringers, Lactated) 1,000 mls @ 125 mls/hr IV ASDIRECTED [facility] [place] Last Admin: 02/17/19 15:32 Dose: 125 mls/hr Cefazolin Sodium/Dextrose 2 gm (/ Premix) 50 mls @ 100 mls/hr IV Q8H [facility] [place] Stop: 02/18/19 11:59 Last Admin: 02/18/19 11:13 Dose: 100 mls/hr Sodium Chloride (Normal Saline) 500 mls @ 999 mls/hr IV .BOLUS ONE Stop: 02/18/19 13:30 Last Admin: 02/18/19 13:00 Dose: 999 mls/hr Iodine (Iodine 2% Mild Tincture) Confirm Administered Dose 30 ml .ROUTE .STK- MED ONE Stop: 02/17/19 07:33 Last Admin: 02/17/19 13:08 Dose: 30 ml Ketamine HCl (Ketalar) Confirm Administered Dose 500 mg .ROUTE .STK-MED ONE Stop: 02/17/19 09:47 Ketorolac Tromethamine (Toradol) 30 mg IV Q6H PRN PRN Reason: Pain (moderate 4-6) Ketorolac Tromethamine (Toradol) 15 mg IVPUSH Q6H PRN PRN Reason: Pain (moderate 4-6) Last Admin: 02/16/19 09:42 Dose: 15 mg Levothyroxine Sodium (Levothyroxine) 150 mcg PO ACBREAKFAST [facility] [place] Last Admin: 02/18/19 14:04 Dose: Not Given Lidocaine (Aspercreme 4%) 1 each TOP DAILY PRN PRN Reason: Pain Miscellaneous Information (Remove Patch) 1 ea TRDERM ONETIME ONE Stop: 02/21/19 09:01 Last Admin: 02/21/19 08:13 Dose: 1 ea Morphine Sulfate (Morphine) 2 mg IVPUSH ONETIME ONE Stop: 02/15/19 21:13 Last Admin: 02/15/19 21:23 Dose: 2 mg Neostigmine Methylsulfate (Neostigmine) Confirm Administered Dose 5 mg .ROUTE .STK-MED ONE Stop: 02/17/19 13:32 Ondansetron HCl (Zofran) 4 mg IVPUSH ONETIME ONE Stop: 02/15/19 21:12 Last Admin: 02/15/19 21:19 Dose: 4 mg Ondansetron HCl (Zofran) Confirm Administered Dose 4 mg .ROUTE .STK-MED ONE Stop: 02/17/19 08:11 Ondansetron HCl (Zofran) 4 mg IVPUSH ONETIME PRN PRN Reason: Nausea/Vomiting Stop: 02/17/19 23:00 Pantoprazole Sodium (Protonix Iv) 40 mg IV Q12HR DAISY Last Admin: 02/16/19 09:29 Dose: 40 mg Phenylephrine HCl (Phenylephrine In Ns 100 Mcg/Ml) Confirm Administered Dose 1 mg .ROUTE .STK-MED ONE Stop: 02/17/19 08:12 Phenylephrine HCl ([place]man-Synephrine) Confirm Administered Dose 10 mg .ROUTE .STK- MED ONE Stop: 02/17/19 11:29 Propofol (Diprivan 20 Ml) Confirm Administered Dose 400 mg .ROUTE .STK-MED ONE Stop: 02/17/19 08:11 Rocuronium [place] (Zemuron) Confirm Administered Dose 50 mg .ROUTE .STK-MED ONE Stop: 02/17/19 08:11 Senna/Docusate Sodium (Senna Plus) 1 tab PO BID PRN PRN Reason: Constipation Last Admin: 02/17/19 20:01 Dose: 1 tab Tranexamic Acid (Cyklokapron) Confirm Administered Dose 1,000 mg .ROUTE .STK- MED ONE Stop: 02/17/19 07:33 Last Admin: 02/17/19 13:22 Dose: 1,000 mg Vancomycin HCl (Vancomycin) Confirm Administered Dose 1 gm .ROUTE .STK-MED ONE Stop: 02/17/19 07:33 Last Admin: 02/17/19 15:00 Dose: 1 gm - Exam General: Alert, Oriented, Cooperative, No Acute Distress HEENT: Pupils Equal, Pupils Reactive, EOMI, Mucous Membr. Moist/[place] Neck: Supple Lungs: Normal Respiratory Effort, Decreased Breath Sounds Cardiovascular: Regular Rate, Regular Rhythm GI/Abdominal Exam: Normal Bowel Sounds, Soft, No Organomegaly, No Distention, No Abnormal Bruit, No Mass (Female) Exam: Deferred Back Exam: Normal Inspection, Decreased Range of Motion Extremities: Normal Inspection, Normal Range of Motion, Non-Tender, No Pedal Edema, Normal Capillary Refill Peripheral Pulses: 2+: Posterior Tibial (R), Dorsalis Pedis (L), Dorsalis Pedis (R) Skin: Warm, Dry, Intact Neurological: No New Focal Deficit. No: Normal Gait Psy/Mental Status: Alert, Normal Affect, Normal Mood - Problem List Review Problem List Initiated/Reviewed/Updated: Yes - My Orders Last 24 Hours: My Active Orders 02/20/19 20:00 Lidocaine 4% [Aspercreme 4%] 1 each TOP DAILY 02/20/19 21:00 Docusate Sodium/Sennosides [Senna Plus] 1 tab PO BID 02/21/19 11:58 Enema [RC] ASDIRECTED 02/21/19 21:00 Lactulose [Cephulac] 20 gm PO BID Remove Patch 1 ea TRDERM BEDTIME - Plan Plan:: I/P: Acute: Post-Operative Anemia - Hgb of 6.9; baseline of 10.7--> 9.1 grams - Meets criteria for transfusion - S/p 2 units of PRBC for transfusions - She feels much better this morning Right Hip Fracture 2/2 Fall, Stable - Twisted to get cooler, felt pain, fell which resulted in worsening pain - Right leg noted to be externally rotated and shortened - Lumbar and thoracic spine CT negative for acute findings -L2 compression fx noted which is felt to be old - X-ray and CT of right hip show Proximal diaphyseal fracture surrounding right hip prothesis; Bilateral hip prothesis - Dr. Paris, Orthopedic surgeon consulted in ED - Ordering specialty equipment - Plan for surgery 02/17/19 AM - NPO at midnight tonight - PT/OT post surgery - Pain medications as ordered - Arguello catheter placed - Flexeril PRN - MRSA negative - 12-lead EKG shows NSR with no ectopy - CXR shows nothing acute - Denies any prior heart or lung problems; Only medication is levothyroxine - TSH 0.03; FT4 is 1.18; cut down dose of thyroid medication (was told she wants to use her home medication-defer pharmacy to okay it) - Will order type and screen and prepare 2 units if needed for surgery Back Pain - Sore from not moving - Offered Lidocaine Patch Daily (better option than narcotics) S/p Confusion - 2/2 Medication Side Effects - She is on flexeril and narcotics for pain management - Advised nurse to be cautious giving above medications Vitamin D deficiency - Vitamin D 13.0 (30-100) - Continue oral supplementation Post- Operative Surgery - She is clinically stable but not hemodynamically when she was working with PT this morning and at noon - Pain is controlled - Educated about pain management and narcotic use Resolved: Pre-Operative Risk Stratification - Risk factors: None - METS > 4, SVS, EKG /CXR: benign - Physical exam fairly benign - No recent cardiac or lung eval - No active cardiac or lung disease - Based on the data provided, the patient carries mild cardiac risk for intermediate surgical risk S/p Vasovagal Near Syncope - 2 episodes with blood pressure bottoming out - She is likely volume depleted complicated by narcotic side effects - Cautioned on narcotic/benzo use - NS 500 mg l Bolus x1; will repeat H/H at 1800 Chronic: Raynaud's disease Recurrent PNA Arthritis Hypothyroidism Plan: She is otherwise clinically stable except for the brief episode of confusion last night Other orders as indicated above CM/SW for discharge planning Routine AM labs DVT prophylaxis: SCDs and Lovenox SubQ BID Code status: Full code; PCP: None locally Additional orders a above LOS > 96hrs pending placement to [place] Thursday Updated daughter RN form out of state about her clinical progress, even overnight, morning labs, treatment and discharge care plan
--- NOTE | 2019-02-21 12:57 | PCM.DCSUM1 ---
Discharge Summary - Hospital Course Brief History: Leelee Vogt is an 78 -year-old female who presented to our ED via [facility] ambulance on 02/15/19 with right hip pain. She reportedly twisted to get a cooler and felt a pain in her hip and then fell. This resulted in more pain in her right hip. She denies hitting her head or hurting her neck. Denies chest pain, shortness of breath, fever, chills, cough. She is noted to have shortened and externally rotated right leg. She does state that she had both hips replaced a few years ago in [place]. In the ED temperature 97.8F. Pulse 85. Respirations 16. Blood pressure 160/66. Pulse ox 90%. Labs are obtained showing a WBC that is elevated at 16.24. Hemoglobin 10.7. Hematocrit 32.5. She is macrocytic. Blood sugar 273,000. Neutrophils are elevated at 89.7%. Sodium is 139. Potassium 4.0. Chloride 104. From an accident 24. Anion gap 13. BUN 16. Creatinine 0.7. EGFR greater than 60. Glucose 120. Calcium 8.3. Bilirubin 0.7. AST 25, ALT 27, alkaline phosphatase 61. Troponin is less than 0.017. Protein is 6.9. Albumin 3.7. Hip x-rays obtained showing a proximal diaphyseal fracture surrounding the right hip prosthesis. There is also bilateral hip prosthesis which appear normal alignment and osteopenia noted. Chest x-rays obtained showing nothing acute. CT of the thoracic spine is obtained showing mild diffuse degenerative change and nothing acute. CT of the lumbar spine is obtained and shows a compression deformity of L2. No acute fracture lines are seen and it is most likely old. MRI would be needed to confirm age. There is also degenerative change noted. Twelve-lead EKG is obtained and interpreted by the ED provider showing sinus rhythm with no acute changes. Dr. Espinal, orthopedic surgeon, is contacted and requested a CT of the femur be obtained. This does show a slightly displaced fracture involving the proximal femoral diaphysis surrounding a hip prosthesis. No additional fracture is seen. There are degenerative changes noted within the knee. She is initially given Dilaudid 0.25 mg IV for pain and then 2 mg IV morphine later. She also given Zofran. She is subsequently admitted to the medical floor for her fracture. 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 She was never a smoker. She is a full code. Her PCP is not in the area. Diagnosis: Stroke: No Modified Mellette Scale: No Symptoms at All Modified Mellette Scale Score: 0 - Discharge Data Discharge Date: 02/22/19 Discharge Disposition: DC/Tfer to SNF 03 Condition: Good - Discharge Diagnosis/Problem(s) (1) Hip fracture, right SNOMED Code(s): 351007926 ICD Code: S72.001A - FRACTURE OF UNSP PART OF NECK OF RIGHT FEMUR, INIT Status: Acute Qualifiers: Encounter type: initial encounter Fracture type: closed Qualified Code(s) : S72.001A - Fracture of unspecified part of neck of right femur, initial encounter for closed fracture (2) Acute blood loss as cause of postoperative anemia SNOMED Code(s): 93303955374951731 ICD Code: D62 - ACUTE POSTHEMORRHAGIC ANEMIA Status: Resolved (3) Back pain SNOMED Code(s): 336440748 ICD Code: M54.9 - DORSALGIA, UNSPECIFIED Status: Acute Qualifiers: Back pain location: low back pain Chronicity: acute Back pain laterality : bilateral Sciatica presence: without sciatica Qualified Code(s): M54.5 - Low back pain (4) Confusion SNOMED Code(s): 129163248 ICD Code: R41.0 - DISORIENTATION, UNSPECIFIED Status: Resolved (5) Constipation by delayed colonic transit SNOMED Code(s): 02543028 ICD Code: K59.01 - SLOW TRANSIT CONSTIPATION Status: Acute (6) Vitamin D deficiency SNOMED Code(s): 07074391 ICD Code: E55.9 - VITAMIN D DEFICIENCY, UNSPECIFIED Status: Acute - Patient Summary/Data Operative Procedure(s) Performed: None Complications: None Consults: Consultations 02/15/19 21:51 Consult to Case Management/Airfield Manager [CONS] Routine Consult to Physician [CONS] Routine Consult to Spiritual Care [CONS] Routine OT Evaluation and Treatment [CONS] Routine PT Evaluation and Treatment [CONS] Routine 02/17/19 08:50 OT Evaluation and Treatment [CONS] Routine PT Evaluation and Treatment [CONS] Routine Labs Pending at D/C: None Recommended Follow-up Testing/Procedures: None Planned Operative Procedure(s) after DC: None Hospital Course: Patient was primarily admitted for right hip fracture after a recent fall. She underwent ORIF and did fairly well. She experienced post surgical anemia which was expected due to the complexity of her acute fracture. However she immediately improved with administration of 2 units of PRBCs. Her most recent Hgb is now at 9.6, near her baseline. Her hospital course was mildly complicated by a brief episode of confusion due to medications that she was on for pain management. But once medically stable and cleared by orthopedics, she was then sent to SNF for further treatment. Patient was advised to follow up with PCP and Ortho as scheduled after discharge. - Patient Instructions Diet: Usual Diet as Tolerated Activity: Apply Ice, As Tolerated, Elevate Extremity Activity, Other: You may place your foot down for balance. Driving: Do Not Drive Showering/Bathing: May Shower Wound/Incision Care: Keep Operative Site/Wound Site Clean and Dry, Do NOT Change Dressing Notify Provider of: Fever, Increased Pain, Swelling and Redness, Drainage, Nausea and/or Vomiting Other/Special Instructions: - Please take all new medications as directed. - Resume routine home medications and activity as tolerated per PT/OT. - Call or follow up with your doctor for any concerns or issues after discharge. - Follow up with your doctor 1 week. - Follow up with Ortho as scheduled. - Come back or seek immediate care should your symptoms persist or get worse - Discharge Plan *PRESCRIPTION DRUG MONITORING PROGRAM REVIEWED*: No *COPY OF PRESCRIPTION DRUG MONITORING REPORT IN PATIENT ERIK: No Prescriptions/Med Rec: Acetaminophen/HYDROcodone [[place] 325-5 MG] 0.5 tab PO Q4H PRN #15 tablet PRN Reason: Pain (Moderate 4-6) Aspirin 325 mg PO BID #60 tablet Bisacodyl [Dulcolax] 10 mg RECTAL DAILY PRN #4 supp PRN Reason: Constipation Cholecalciferol (Vitamin D3) [Vitamin D3] 5,000 unit PO DAILY #30 capsule Docusate Sodium/Sennosides [Senokot-S] 1 each PO BEDTIME #30 tablet Enoxaparin [Lovenox] 30 mg SUBCUT BID #14 syringe Naloxone HCl [Narcan] 4 mg NS ASDIRECTED #1 spray Polyethylene Glycol 3350 [MiraLAX] 17 gm PO DAILY PRN #6 packet PRN Reason: Constipation tiZANidine [Zanaflex] 2 mg PO Q6H PRN #30 tab PRN Reason: Muscle Spasm Home Medications: Home Meds Levothyroxine 150 mcg PO DAILY 02/28/18 [History] Acetaminophen/HYDROcodone [[place] 325-5 MG] 0.5 tab PO Q4H PRN #15 tablet [Rx] Aspirin 325 mg PO BID #60 tablet 02/21/19 [Rx] Bisacodyl [Dulcolax] 10 mg RECTAL DAILY PRN #4 supp 02/21/19 [Rx] Cholecalciferol (Vitamin D3) [Vitamin D3] 5,000 unit PO DAILY #30 capsule [Rx] Docusate Sodium/Sennosides [Senokot-S] 1 each PO BEDTIME #30 tablet 02/21/19 [Rx ] Enoxaparin [Lovenox] 30 mg SUBCUT BID #14 syringe 02/21/19 [Rx] Polyethylene Glycol 3350 [MiraLAX] 17 gm PO DAILY PRN #6 packet 02/21/19 [Rx] Naloxone HCl [Narcan] 4 mg NS ASDIRECTED #1 spray 02/22/19 [Rx] tiZANidine [Zanaflex] 2 mg PO Q6H PRN #30 tab 02/22/19 [Rx] Oxygen Therapy Mode: Room Air Patient Handouts: Open Reduction and Internal Fixation for Hip Fracture Referrals: Angie Hutchinson PA-C [Physician Oriental Medicine Practitioner] - 02/25/19 11:30 am (You will see Angie on 02/25 at 1130 9/6 at 1045 10/ at 1145 ) Poncho Ashford MD [Physician] - 03/02/19 2:30 pm (You will have labs drawn for the appointment CBC, BMP, MG ) - Discharge Summary/Plan Comment DC Time >30 min.: Yes (45 mins) Discharge Summary/Plan Comment: Discharge to SNF - General Info Date of Service: 02/22/19 Admission Dx/Problem (Free Text: Admission Diagnosis/Problem Admission Diagnosis/Problem Hip fracture requiring operative repair Subjective Update: Follow Up Functional Status: Reports: Pain Controlled, Tolerating Diet, Ambulating, Urinating - Review of Systems General: Denies: Fever, Weakness, Fatigue, Malaise, Chills HEENT: Reports: No Symptoms Pulmonary: Denies: Shortness of Breath Cardiovascular: Reports: Edema. Denies: Chest Pain, Dyspnea on Exertion, Lightheadedness Gastrointestinal: Reports: Constipation. Denies: Abdominal Pain, Nausea, Vomiting Genitourinary: Reports: No Symptoms Musculoskeletal: Reports: No Symptoms Skin: Reports: Bruising. Denies: Cyanosis Neurological: Reports: Difficulty Walking, Gait Disturbance. Denies: Confusion , Weakness Psychiatric: Denies: Confusion, Depression, Mood Lability, Anxiety, Agitation, Hallucinations Systems Review Comment: She had an uneventful night. She feels pretty good and pain is controlled. Her Hgb level is now back to up to 9.6 - Patient Data Vitals - Most Recent: Last Vital Signs Temp 36.5 C 02/21/19 08:00 Pulse 86 02/21/19 08:00 Resp 16 02/21/19 08:00 BP 121/40 L 02/21/19 08:11 Pulse Ox 99 02/21/19 08:00 Weight - Most Recent: 78.925 kg I&O - Last 24 hours: Intake & Output 02/20/19 02/21/19 02/21/19 22:59 06:59 14:59 Intake Total 980 550 Output Total 500 900 Balance 480 -350 Lab Results - Last 24 hrs: Laboratory Results - last 24 hr 02/21/19 Range/Units 10:02 WBC 10.11 H (3.98-10.04) K/mm3 RBC 3.17 L (3.98-5.22) M/mm3 Hgb 9.6 L (11.2-15.7) gm/L Hct 29.9 L (34.1-44.9) % MCV 94.3 (79.4-94.8) fl MCH 30.3 (25.6-32.2) pg MCHC 32.1 L (32.2-35.5) g/dl RDW Std Deviation 58.9 H (36.4-46.3) fL Plt Count 248 (182-369) K/mm3 MPV 11.2 (9.4-12.3) fl Neut % (Auto) 69.1 (34.0-71.1) % Lymph % (Auto) 18.7 L (19.3-51.7) % [place] % (Auto) 6.5 (4.7-12.5) % Eos % (Auto) 3.1 (0.7-5.8) Baso % (Auto) 0.3 (0.1-1.2) % Neut # (Auto) 6.99 H (1.56-6.13) K/mm3 Lymph # (Auto) 1.89 (1.18-3.74) K/mm3 [place] # (Auto) 0.66 H (0.24-0.36) K/mm3 Eos # (Auto) 0.31 (0.04-0.36) K/mm3 Baso # (Auto) 0.03 (0.01-0.08) K/mm3 Manual Slide Review Abnormal smear Med Orders - Current: Current Medications Acetaminophen (Tylenol) 650 mg PO Q4H PRN PRN Reason: Pain (Mild 1-3)/fever Hydrocodone Bitart/Acetaminophen ([place] 325-5 Mg) 1 tab PO Q4H PRN PRN Reason: Pain (moderate 4-6) Last Admin: 02/21/19 10:51 Dose: 1 tab Albuterol/Ipratropium (Duoneb 3.0-0.5 Mg/3 Ml) 3 ml NEB Q4H PRN PRN Reason: Shortness Of Breath/wheezing Bisacodyl (Dulcolax) 5 mg PO DAILY PRN PRN Reason: Constipation Last Admin: 02/18/19 06:36 Dose: 5 mg Bisacodyl (Dulcolax) 10 mg RECTAL DAILY PRN PRN Reason: Constipation Last Admin: 02/18/19 22:03 Dose: 10 mg Cholecalciferol (Vitamin D3) 5,000 unit PO DAILY COUNTS INCLUDE 234 BEDS AT THE [facility] Last Admin: 02/21/19 08:12 Dose: 5,000 unit Cyclobenzaprine HCl (Flexeril) 10 mg PO TID PRN PRN Reason: Muscle spasms Last Admin: 02/18/19 17:45 Dose: 10 mg Enoxaparin Sodium (Lovenox) 30 mg SUBCUT BID COUNTS INCLUDE 234 BEDS AT THE [facility] Last Admin: 02/21/19 08:12 Dose: 30 mg Promethazine HCl 6.25 mg/ (Sodium Chloride) 50.25 mls @ 100 mls/hr IV Q6H PRN PRN Reason: Nausea/Vomiting Sodium Chloride (Normal Saline) 250 mls @ 25 mls/hr IV ASDIRECTED COUNTS INCLUDE 234 BEDS AT THE [facility] Last Admin: 02/19/19 16:41 Dose: 25 mls/hr Lactulose (Cephulac) 20 gm PO BID COUNTS INCLUDE 234 BEDS AT THE [facility] Lidocaine (Aspercreme 4%) 1 each TOP DAILY COUNTS INCLUDE 234 BEDS AT THE [facility] Last Admin: 02/21/19 08:13 Dose: 1 each Lorazepam (Ativan) 0.25 mg IV Q6H PRN PRN Reason: Anxiety Midodrine (Midodrine) 10 mg PO TID PRN PRN Reason: hypotension Miscellaneous Information (Remove Patch) 1 ea TRDERM BEDTIME COUNTS INCLUDE 234 BEDS AT THE [facility] Naloxone HCl (Narcan) 0.1 mg IVPUSH Q5M PRN PRN Reason: Oversedation Ondansetron HCl (Zofran) 4 mg IV Q4H PRN PRN Reason: Nausea/Vomiting Last Admin: 02/19/19 12:10 Dose: 4 mg Pantoprazole Sodium (Protonix) 40 mg PO Q12H COUNTS INCLUDE 234 BEDS AT THE [facility] Last Admin: 02/21/19 08:12 Dose: 40 mg Synthroid 150 Mcg (Tab) 0 each PO ACBREAKFAST COUNTS INCLUDE 234 BEDS AT THE [facility] Last Admin: 02/21/19 05:48 Dose: 1 each Polyethylene Glycol (Miralax) 17 gm PO DAILY PRN PRN Reason: Constipation Senna/Docusate Sodium (Senna Plus) 1 tab PO BID COUNTS INCLUDE 234 BEDS AT THE [facility] Last Admin: 02/21/19 08:12 Dose: 1 tab Sodium Chloride (Saline Flush) 10 ml FLUSH ASDIRECTED PRN PRN Reason: Keep Vein Open Last Admin: 02/15/19 18:51 Dose: 10 ml Discontinued Medications Acetaminophen (Tylenol) 650 mg PO NOW ONE Stop: 02/19/19 11:06 Last Admin: 02/19/19 12:43 Dose: 650 mg Bupivacaine HCl (Sensorcaine-Mpf 0.25%) Confirm Administered Dose 30 ml .ROUTE .STK-MED ONE Stop: 02/17/19 07:33 Last Admin: 02/17/19 13:14 Dose: 30 ml Cefazolin Sodium (Ancef) Confirm Administered Dose 2 gm .ROUTE .STK-MED ONE Stop: 02/17/19 07:33 Last Admin: 02/17/19 13:09 Dose: 2 gm Cefazolin Sodium (Ancef) Confirm Administered Dose 2 gm .ROUTE .STK-MED ONE Stop: 02/17/19 08:11 Cefazolin Sodium (Ancef) Confirm Administered Dose 2 gm .ROUTE .STK-MED ONE Stop: 02/17/19 12:49 Morphine Sulfate 8 mg/Epinephrine HCl 0.3 mg/Cefuroxime Sodium 750 mg/Ketorolac Tromethamine 30 mg/Sodium Chloride 27.9 ml 0 mg .XX ONETIME ONE Stop: 02/17/19 09:01 Last Admin: 02/17/19 17:29 Dose: Not Given Cyclobenzaprine HCl (Flexeril) 10 mg PO ONETIME ONE Stop: 02/15/19 21:53 Last Admin: 02/15/19 21:57 Dose: 10 mg Dexamethasone (Dexamethasone) Confirm Administered Dose 20 mg .ROUTE .STK-MED ONE Stop: 02/17/19 08:11 Dexamethasone (Dexamethasone) 4 mg IVPUSH ONETIME ONE Stop: 02/19/19 11:06 Last Admin: 02/19/19 12:43 Dose: 4 mg Diphenhydramine HCl (Benadryl) 25 mg IV ONETIME ONE Stop: 02/19/19 11:06 Last Admin: 02/19/19 12:43 Dose: 25 mg Docusate Sodium (Colace) 100 mg PO BID PRN PRN Reason: Constipation Ephedrine Sulfate (Ephedrine In Ns) Confirm Administered Dose 25 mg .ROUTE .STK- MED ONE Stop: 02/17/19 08:11 Ephedrine Sulfate (Ephedrine Sulfate) 5 mg IVPUSH ASDIRECTED PRN PRN Reason: Hypotension Stop: 02/17/19 23:00 Fentanyl (Sublimaze) Confirm Administered Dose 250 mcg .ROUTE .STK-MED ONE Stop: 02/17/19 08:11 Fentanyl (Sublimaze) 50 mcg IVPUSH Q5M PRN PRN Reason: Pain Stop: 02/17/19 23:00 Glycopyrrolate () Confirm Administered Dose 1 mg .ROUTE .STK-MED ONE Stop: 02/17/19 13:32 Heparin Sodium (Porcine) (Heparin Sodium) 5,000 units SUBCUT Q8H DAISY Last Admin: 02/16/19 21:08 Dose: 5,000 units Hydromorphone HCl (Dilaudid) 0.25 mg IVPUSH ONETIME ONE Stop: 02/15/19 18:21 Last Admin: 02/15/19 18:48 Dose: 0.25 mg Hydromorphone HCl (Dilaudid) 0.25 mg IVPUSH Q2H PRN PRN Reason: Pain (severe 7-10) Last Admin: 02/16/19 01:48 Dose: 0.25 mg Hydromorphone HCl (Dilaudid) Confirm Administered Dose 0.5 mg .ROUTE .STK-MED ONE Stop: 02/17/19 13:37 Hydromorphone HCl (Dilaudid) 0.25 mg IVPUSH Q15M PRN PRN Reason: severe pain Stop: 02/17/19 23:00 Lidocaine HCl (Xylocaine-Mpf 1%) Confirm Administered Dose 4 mls @ as directed .ROUTE .STK-MED ONE Stop: 02/17/19 08:11 Lactated Ringer's (Ringers, Lactated) Confirm Administered Dose 1,000 mls @ as directed .ROUTE .STK-MED ONE Stop: 02/17/19 08:11 Lidocaine HCl (Xylocaine-Mpf 1%) Confirm Administered Dose 2 mls @ as directed .ROUTE .STK-MED ONE Stop: 02/17/19 08:11 Cefazolin Sodium/Dextrose 2 gm (/ Premix) 50 mls @ 100 mls/hr IV Q8H COUNTS INCLUDE 234 BEDS AT THE [facility] Stop: 02/18/19 08:59 Last Admin: 02/17/19 19:38 Dose: Not Given Sodium Chloride (Normal Saline) Confirm Administered Dose 1,000 mls @ as directed .ROUTE .STK-MED ONE Stop: 02/17/19 10:06 Sodium Chloride (Normal Saline) Confirm Administered Dose 100 mls @ as directed .ROUTE .STK-MED ONE Stop: 02/17/19 11:28 Sodium Chloride (Normal Saline) Confirm Administered Dose 250 mls @ as directed .ROUTE .STK-MED ONE Stop: 02/17/19 12:36 Lactated Ringer's (Ringers, Lactated) 1,000 mls @ 125 mls/hr IV ASDIRECTED COUNTS INCLUDE 234 BEDS AT THE [facility] Last Admin: 02/17/19 15:32 Dose: 125 mls/hr Cefazolin Sodium/Dextrose 2 gm (/ Premix) 50 mls @ 100 mls/hr IV Q8H COUNTS INCLUDE 234 BEDS AT THE [facility] Stop: 02/18/19 11:59 Last Admin: 02/18/19 11:13 Dose: 100 mls/hr Sodium Chloride (Normal Saline) 500 mls @ 999 mls/hr IV .BOLUS ONE Stop: 02/18/19 13:30 Last Admin: 02/18/19 13:00 Dose: 999 mls/hr Iodine (Iodine 2% Mild Tincture) Confirm Administered Dose 30 ml .ROUTE .STK- MED ONE Stop: 02/17/19 07:33 Last Admin: 02/17/19 13:08 Dose: 30 ml Ketamine HCl (Ketalar) Confirm Administered Dose 500 mg .ROUTE .STK-MED ONE Stop: 02/17/19 09:47 Ketorolac Tromethamine (Toradol) 30 mg IV Q6H PRN PRN Reason: Pain (moderate 4-6) Ketorolac Tromethamine (Toradol) 15 mg IVPUSH Q6H PRN PRN Reason: Pain (moderate 4-6) Last Admin: 02/16/19 09:42 Dose: 15 mg Levothyroxine Sodium (Levothyroxine) 150 mcg PO ACBREAKFAST DAISY Last Admin: 02/18/19 14:04 Dose: Not Given Lidocaine (Aspercreme 4%) 1 each TOP DAILY PRN PRN Reason: Pain Miscellaneous Information (Remove Patch) 1 ea TRDERM ONETIME ONE Stop: 02/21/19 09:01 Last Admin: 02/21/19 08:13 Dose: 1 ea Morphine Sulfate (Morphine) 2 mg IVPUSH ONETIME ONE Stop: 02/15/19 21:13 Last Admin: 02/15/19 21:23 Dose: 2 mg Neostigmine Methylsulfate (Neostigmine) Confirm Administered Dose 5 mg .ROUTE .STK-MED ONE Stop: 02/17/19 13:32 Ondansetron HCl (Zofran) 4 mg IVPUSH ONETIME ONE Stop: 02/15/19 21:12 Last Admin: 02/15/19 21:19 Dose: 4 mg Ondansetron HCl (Zofran) Confirm Administered Dose 4 mg .ROUTE .STK-MED ONE Stop: 02/17/19 08:11 Ondansetron HCl (Zofran) 4 mg IVPUSH ONETIME PRN PRN Reason: Nausea/Vomiting Stop: 02/17/19 23:00 Pantoprazole Sodium (Protonix Iv) 40 mg IV Q12HR DAISY Last Admin: 02/16/19 09:29 Dose: 40 mg Phenylephrine HCl (Phenylephrine In Ns 100 Mcg/Ml) Confirm Administered Dose 1 mg .ROUTE .STK-MED ONE Stop: 02/17/19 08:12 Phenylephrine HCl (Bahman-Synephrine) Confirm Administered Dose 10 mg .ROUTE .STK- MED ONE Stop: 02/17/19 11:29 Propofol (Diprivan 20 Ml) Confirm Administered Dose 400 mg .ROUTE .STK-MED ONE Stop: 02/17/19 08:11 Rocuronium [place] (Zemuron) Confirm Administered Dose 50 mg .ROUTE .STK-MED ONE Stop: 02/17/19 08:11 Senna/Docusate Sodium (Senna Plus) 1 tab PO BID PRN PRN Reason: Constipation Last Admin: 02/17/19 20:01 Dose: 1 tab Tranexamic Acid (Cyklokapron) Confirm Administered Dose 1,000 mg .ROUTE .STK- MED ONE Stop: 02/17/19 07:33 Last Admin: 02/17/19 13:22 Dose: 1,000 mg Vancomycin HCl (Vancomycin) Confirm Administered Dose 1 gm .ROUTE .STK-MED ONE Stop: 02/17/19 07:33 Last Admin: 02/17/19 15:00 Dose: 1 gm - Exam General: Reports: Alert, Oriented, Cooperative, No Acute Distress HEENT: Reports: Pupils Equal, Pupils Reactive, EOMI, Mucous Membr. Moist/[place] Neck: Reports: Supple Lungs: Reports: Clear to Auscultation, Normal Respiratory Effort Cardiovascular: Reports: Regular Rate, Regular Rhythm GI/Abdominal Exam: Normal Bowel Sounds, Soft, Non-Tender, No Organomegaly, No Distention, No Abnormal Bruit, No Mass (Female) Exam: Deferred Rectal (Female) Exam: Deferred Back Exam: Reports: Normal Inspection, Decreased Range of Motion Extremities: Normal Inspection, Normal Range of Motion, Non-Tender, No Pedal Edema, Normal Capillary Refill Skin: Reports: Warm, Dry, Intact Wound/Incisions: Reports: Dressing Dry and Intact, Erythema Improving Neurological: Reports: No New Focal Deficit (limited due to pain with movement but grossly intact). Denies: Normal Gait Psy/Mental Status: Reports: Alert, Normal Affect, Normal Mood
--- NOTE | 2019-02-21 13:22 | PCM.PN ---
- General Info Date of Service: 02/21/19 Admission Dx/Problem (Free Text): Admission Diagnosis/Problem Admission Diagnosis/Problem Hip fracture requiring operative repair Subjective Update: Follow Up Functional Status: Reports: Pain Controlled, Tolerating Diet, Ambulating, Urinating - Review of Systems General: Denies: Fever, Chills HEENT: Reports: No Symptoms Pulmonary: Reports: Shortness of Breath Cardiovascular: Denies: Chest Pain, Dyspnea on Exertion, Lightheadedness Gastrointestinal: Reports: Constipation. Denies: Abdominal Pain, Nausea, Vomiting Genitourinary: Reports: No Symptoms Musculoskeletal: Reports: Back Pain. Denies: Joint Swelling Skin: Reports: Bruising. Denies: Cyanosis, Pallor Neurological: Reports: Difficulty Walking, Weakness, Gait Disturbance. Denies: Confusion Psychiatric: Denies: Confusion, Depression, Mood Lability, Anxiety, Agitation, Cravings, Hallucinations, Suicidal Ideation, Homicidal Ideation Systems Review Comment:: She had a good night. Her only issues is constipation and requesting fleet enema for treatment. Her Hgb is 9.6 grams this morning. - Patient Data Vitals - Most Recent: Last Vital Signs Temp 36.5 C 02/21/19 08:00 Pulse 86 02/21/19 08:00 Resp 16 02/21/19 08:00 BP 121/40 L 02/21/19 08:11 Pulse Ox 99 02/21/19 08:00 Weight - Most Recent: 78.925 kg I&O - Last 24 Hours: Intake & Output 02/20/19 02/21/19 02/21/19 22:59 06:59 14:59 Intake Total 980 550 Output Total 500 900 Balance 480 -350 Lab Results Last 24 Hours: Laboratory Results - last 24 hr 02/21/19 Range/Units 10:02 WBC 10.11 H (3.98-10.04) K/mm3 RBC 3.17 L (3.98-5.22) M/mm3 Hgb 9.6 L (11.2-15.7) gm/L Hct 29.9 L (34.1-44.9) % MCV 94.3 (79.4-94.8) fl MCH 30.3 (25.6-32.2) pg MCHC 32.1 L (32.2-35.5) g/dl RDW Std Deviation 58.9 H (36.4-46.3) fL Plt Count 248 (182-369) K/mm3 MPV 11.2 (9.4-12.3) fl Neut % (Auto) 69.1 (34.0-71.1) % Lymph % (Auto) 18.7 L (19.3-51.7) % [place] % (Auto) 6.5 (4.7-12.5) % Eos % (Auto) 3.1 (0.7-5.8) Baso % (Auto) 0.3 (0.1-1.2) % Neut # (Auto) 6.99 H (1.56-6.13) K/mm3 Lymph # (Auto) 1.89 (1.18-3.74) K/mm3 [place] # (Auto) 0.66 H (0.24-0.36) K/mm3 Eos # (Auto) 0.31 (0.04-0.36) K/mm3 Baso # (Auto) 0.03 (0.01-0.08) K/mm3 Manual Slide Review Abnormal smear Med Orders - Current: Current Medications Acetaminophen (Tylenol) 650 mg PO Q4H PRN PRN Reason: Pain (Mild 1-3)/fever Hydrocodone Bitart/Acetaminophen ([place] 325-5 Mg) 1 tab PO Q4H PRN PRN Reason: Pain (moderate 4-6) Last Admin: 02/21/19 10:51 Dose: 1 tab Albuterol/Ipratropium (Duoneb 3.0-0.5 Mg/3 Ml) 3 ml NEB Q4H PRN PRN Reason: Shortness Of Breath/wheezing Bisacodyl (Dulcolax) 5 mg PO DAILY PRN PRN Reason: Constipation Last Admin: 02/18/19 06:36 Dose: 5 mg Bisacodyl (Dulcolax) 10 mg RECTAL DAILY PRN PRN Reason: Constipation Last Admin: 02/18/19 22:03 Dose: 10 mg Cholecalciferol (Vitamin D3) 5,000 unit PO DAILY DAISY Last Admin: 02/21/19 08:12 Dose: 5,000 unit Cyclobenzaprine HCl (Flexeril) 10 mg PO TID PRN PRN Reason: Muscle spasms Last Admin: 02/18/19 17:45 Dose: 10 mg Enoxaparin Sodium (Lovenox) 30 mg SUBCUT BID [facility] Last Admin: 02/21/19 08:12 Dose: 30 mg Promethazine HCl 6.25 mg/ (Sodium Chloride) 50.25 mls @ 100 mls/hr IV Q6H PRN PRN Reason: Nausea/Vomiting Sodium Chloride (Normal Saline) 250 mls @ 25 mls/hr IV ASDIRECTED [facility] Last Admin: 02/19/19 16:41 Dose: 25 mls/hr Lactulose (Cephulac) 20 gm PO BID [facility] Lidocaine (Aspercreme 4%) 1 each TOP DAILY [facility] Last Admin: 02/21/19 08:13 Dose: 1 each Lorazepam (Ativan) 0.25 mg IV Q6H PRN PRN Reason: Anxiety Midodrine (Midodrine) 10 mg PO TID PRN PRN Reason: hypotension Miscellaneous Information (Remove Patch) 1 ea TRDERM BEDTIME [facility] Naloxone HCl (Narcan) 0.1 mg IVPUSH Q5M PRN PRN Reason: Oversedation Ondansetron HCl (Zofran) 4 mg IV Q4H PRN PRN Reason: Nausea/Vomiting Last Admin: 02/19/19 12:10 Dose: 4 mg Pantoprazole Sodium (Protonix) 40 mg PO Q12H [facility] Last Admin: 02/21/19 08:12 Dose: 40 mg Synthroid 150 Mcg (Tab) 0 each PO ACBREAKFAST [facility] Last Admin: 02/21/19 05:48 Dose: 1 each Polyethylene Glycol (Miralax) 17 gm PO DAILY PRN PRN Reason: Constipation Senna/Docusate Sodium (Senna Plus) 1 tab PO BID [facility] Last Admin: 02/21/19 08:12 Dose: 1 tab Sodium Chloride (Saline Flush) 10 ml FLUSH ASDIRECTED PRN PRN Reason: Keep Vein Open Last Admin: 02/15/19 18:51 Dose: 10 ml Discontinued Medications Acetaminophen (Tylenol) 650 mg PO NOW ONE Stop: 02/19/19 11:06 Last Admin: 02/19/19 12:43 Dose: 650 mg Bupivacaine HCl (Sensorcaine-Mpf 0.25%) Confirm Administered Dose 30 ml .ROUTE .STK-MED ONE Stop: 02/17/19 07:33 Last Admin: 02/17/19 13:14 Dose: 30 ml Cefazolin Sodium (Ancef) Confirm Administered Dose 2 gm .ROUTE .STK-MED ONE Stop: 02/17/19 07:33 Last Admin: 02/17/19 13:09 Dose: 2 gm Cefazolin Sodium (Ancef) Confirm Administered Dose 2 gm .ROUTE .STK-MED ONE Stop: 02/17/19 08:11 Cefazolin Sodium (Ancef) Confirm Administered Dose 2 gm .ROUTE .STK-MED ONE Stop: 02/17/19 12:49 Morphine Sulfate 8 mg/Epinephrine HCl 0.3 mg/Cefuroxime Sodium 750 mg/Ketorolac Tromethamine 30 mg/Sodium Chloride 27.9 ml 0 mg .XX ONETIME ONE Stop: 02/17/19 09:01 Last Admin: 02/17/19 17:29 Dose: Not Given Cyclobenzaprine HCl (Flexeril) 10 mg PO ONETIME ONE Stop: 02/15/19 21:53 Last Admin: 02/15/19 21:57 Dose: 10 mg Dexamethasone (Dexamethasone) Confirm Administered Dose 20 mg .ROUTE .STK-MED ONE Stop: 02/17/19 08:11 Dexamethasone (Dexamethasone) 4 mg IVPUSH ONETIME ONE Stop: 02/19/19 11:06 Last Admin: 02/19/19 12:43 Dose: 4 mg Diphenhydramine HCl (Benadryl) 25 mg IV ONETIME ONE Stop: 02/19/19 11:06 Last Admin: 02/19/19 12:43 Dose: 25 mg Docusate Sodium (Colace) 100 mg PO BID PRN PRN Reason: Constipation Ephedrine Sulfate (Ephedrine In Ns) Confirm Administered Dose 25 mg .ROUTE .STK- MED ONE Stop: 02/17/19 08:11 Ephedrine Sulfate (Ephedrine Sulfate) 5 mg IVPUSH ASDIRECTED PRN PRN Reason: Hypotension Stop: 02/17/19 23:00 Fentanyl (Sublimaze) Confirm Administered Dose 250 mcg .ROUTE .STK-MED ONE Stop: 02/17/19 08:11 Fentanyl (Sublimaze) 50 mcg IVPUSH Q5M PRN PRN Reason: Pain Stop: 02/17/19 23:00 Glycopyrrolate () Confirm Administered Dose 1 mg .ROUTE .STK-MED ONE Stop: 02/17/19 13:32 Heparin Sodium (Porcine) (Heparin Sodium) 5,000 units SUBCUT Q8H DAISY Last Admin: 02/16/19 21:08 Dose: 5,000 units Hydromorphone HCl (Dilaudid) 0.25 mg IVPUSH ONETIME ONE Stop: 02/15/19 18:21 Last Admin: 02/15/19 18:48 Dose: 0.25 mg Hydromorphone HCl (Dilaudid) 0.25 mg IVPUSH Q2H PRN PRN Reason: Pain (severe 7-10) Last Admin: 02/16/19 01:48 Dose: 0.25 mg Hydromorphone HCl (Dilaudid) Confirm Administered Dose 0.5 mg .ROUTE .[facility]-MED ONE Stop: 02/17/19 13:37 Hydromorphone HCl (Dilaudid) 0.25 mg IVPUSH Q15M PRN PRN Reason: severe pain Stop: 02/17/19 23:00 Lidocaine HCl (Xylocaine-Mpf 1%) Confirm Administered Dose 4 mls @ as directed .ROUTE .[facility]-MED ONE Stop: 02/17/19 08:11 Lactated Ringer's (Ringers, Lactated) Confirm Administered Dose 1,000 mls @ as directed .ROUTE .[facility]-MED ONE Stop: 02/17/19 08:11 Lidocaine HCl (Xylocaine-Mpf 1%) Confirm Administered Dose 2 mls @ as directed .ROUTE .[facility]-MED ONE Stop: 02/17/19 08:11 Cefazolin Sodium/Dextrose 2 gm (/ Premix) 50 mls @ 100 mls/hr IV Q8H [facility] Stop: 02/18/19 08:59 Last Admin: 02/17/19 19:38 Dose: Not Given Sodium Chloride (Normal Saline) Confirm Administered Dose 1,000 mls @ as directed .ROUTE .[facility]-MED ONE Stop: 02/17/19 10:06 Sodium Chloride (Normal Saline) Confirm Administered Dose 100 mls @ as directed .ROUTE .[facility]-MED ONE Stop: 02/17/19 11:28 Sodium Chloride (Normal Saline) Confirm Administered Dose 250 mls @ as directed .ROUTE .[facility]-MED ONE Stop: 02/17/19 12:36 Lactated Ringer's (Ringers, Lactated) 1,000 mls @ 125 mls/hr IV ASDIRECTED [facility] Last Admin: 02/17/19 15:32 Dose: 125 mls/hr Cefazolin Sodium/Dextrose 2 gm (/ Premix) 50 mls @ 100 mls/hr IV Q8H [facility] Stop: 02/18/19 11:59 Last Admin: 02/18/19 11:13 Dose: 100 mls/hr Sodium Chloride (Normal Saline) 500 mls @ 999 mls/hr IV .BOLUS ONE Stop: 02/18/19 13:30 Last Admin: 02/18/19 13:00 Dose: 999 mls/hr Iodine (Iodine 2% Mild Tincture) Confirm Administered Dose 30 ml .ROUTE .STK- MED ONE Stop: 02/17/19 07:33 Last Admin: 02/17/19 13:08 Dose: 30 ml Ketamine HCl (Ketalar) Confirm Administered Dose 500 mg .ROUTE .STK-MED ONE Stop: 02/17/19 09:47 Ketorolac Tromethamine (Toradol) 30 mg IV Q6H PRN PRN Reason: Pain (moderate 4-6) Ketorolac Tromethamine (Toradol) 15 mg IVPUSH Q6H PRN PRN Reason: Pain (moderate 4-6) Last Admin: 02/16/19 09:42 Dose: 15 mg Levothyroxine Sodium (Levothyroxine) 150 mcg PO ACBREAKFAST [facility] Last Admin: 02/18/19 14:04 Dose: Not Given Lidocaine (Aspercreme 4%) 1 each TOP DAILY PRN PRN Reason: Pain Miscellaneous Information (Remove Patch) 1 ea TRDERM ONETIME ONE Stop: 02/21/19 09:01 Last Admin: 02/21/19 08:13 Dose: 1 ea Morphine Sulfate (Morphine) 2 mg IVPUSH ONETIME ONE Stop: 02/15/19 21:13 Last Admin: 02/15/19 21:23 Dose: 2 mg Neostigmine Methylsulfate (Neostigmine) Confirm Administered Dose 5 mg .ROUTE .STK-MED ONE Stop: 02/17/19 13:32 Ondansetron HCl (Zofran) 4 mg IVPUSH ONETIME ONE Stop: 02/15/19 21:12 Last Admin: 02/15/19 21:19 Dose: 4 mg Ondansetron HCl (Zofran) Confirm Administered Dose 4 mg .ROUTE .STK-MED ONE Stop: 02/17/19 08:11 Ondansetron HCl (Zofran) 4 mg IVPUSH ONETIME PRN PRN Reason: Nausea/Vomiting Stop: 02/17/19 23:00 Pantoprazole Sodium (Protonix Iv) 40 mg IV Q12HR DAISY Last Admin: 02/16/19 09:29 Dose: 40 mg Phenylephrine HCl (Phenylephrine In Ns 100 Mcg/Ml) Confirm Administered Dose 1 mg .ROUTE .STK-MED ONE Stop: 02/17/19 08:12 Phenylephrine HCl ([place]-Synephrine) Confirm Administered Dose 10 mg .ROUTE .STK- MED ONE Stop: 02/17/19 11:29 Propofol (Diprivan 20 Ml) Confirm Administered Dose 400 mg .ROUTE .STK-MED ONE Stop: 02/17/19 08:11 Rocuronium [place] (Zemuron) Confirm Administered Dose 50 mg .ROUTE .STK-MED ONE Stop: 02/17/19 08:11 Senna/Docusate Sodium (Senna Plus) 1 tab PO BID PRN PRN Reason: Constipation Last Admin: 02/17/19 20:01 Dose: 1 tab Tranexamic Acid (Cyklokapron) Confirm Administered Dose 1,000 mg .ROUTE .STK- MED ONE Stop: 02/17/19 07:33 Last Admin: 02/17/19 13:22 Dose: 1,000 mg Vancomycin HCl (Vancomycin) Confirm Administered Dose 1 gm .ROUTE .STK-MED ONE Stop: 02/17/19 07:33 Last Admin: 02/17/19 15:00 Dose: 1 gm - Exam General: Alert, Oriented, Cooperative, No Acute Distress HEENT: Pupils Equal, Pupils Reactive, EOMI, Mucous Membr. Moist/[place] Neck: Supple Lungs: Normal Respiratory Effort, Decreased Breath Sounds Cardiovascular: Regular Rate, Regular Rhythm GI/Abdominal Exam: Normal Bowel Sounds, Soft, Non-Tender, No Organomegaly, No Distention, No Abnormal Bruit (Female) Exam: Deferred Back Exam: Normal Inspection, Decreased Range of Motion Extremities: Normal Inspection, Non-Tender, No Pedal Edema, Normal Capillary Refill, Pedal Edema, Limited Range of Motion Peripheral Pulses: 2+: Posterior Tibial (L), Posterior Tibial (R), Dorsalis Pedis (L), Dorsalis Pedis (R) Skin: Warm, Dry, Intact, Ecchymosis (surgical site) Neurological: No New Focal Deficit (limited but grossly intact), Normal Gait Psy/Mental Status: Alert, Normal Affect, Normal Mood - Problem List & Annotations (1) Hip fracture, right SNOMED Code(s): 684378089 Code(s): S72.001A - FRACTURE OF UNSP PART OF NECK OF RIGHT FEMUR, INIT Status: Acute Current Visit: Yes Qualifiers: Encounter type: initial encounter Fracture type: closed Qualified Code(s) : S72.001A - Fracture of unspecified part of neck of right femur, initial encounter for closed fracture (2) Acute blood loss as cause of postoperative anemia SNOMED Code(s): 06927166348161167 Code(s): D62 - ACUTE POSTHEMORRHAGIC ANEMIA Status: Resolved Current Visit: Yes (3) Back pain SNOMED Code(s): 871276430 Code(s): M54.9 - DORSALGIA, UNSPECIFIED Status: Acute Current Visit: Yes Qualifiers: Back pain location: low back pain Chronicity: acute Back pain laterality : bilateral Sciatica presence: without sciatica Qualified Code(s): M54.5 - Low back pain (4) Confusion SNOMED Code(s): 555577939 Code(s): R41.0 - DISORIENTATION, UNSPECIFIED Status: Resolved Current Visit: Yes (5) Constipation by delayed colonic transit SNOMED Code(s): 37885275 Code(s): K59.01 - SLOW TRANSIT CONSTIPATION Status: Acute Current Visit: Yes (6) Vitamin D deficiency SNOMED Code(s): 46699618 Code(s): E55.9 - VITAMIN D DEFICIENCY, UNSPECIFIED Status: Acute Current Visit: Yes - Problem List Review Problem List Initiated/Reviewed/Updated: Yes - My Orders Last 24 Hours: My Active Orders 02/20/19 20:00 Lidocaine 4% [Aspercreme 4%] 1 each TOP DAILY 02/20/19 21:00 Docusate Sodium/Sennosides [Senna Plus] 1 tab PO BID 02/21/19 11:58 Enema [RC] ASDIRECTED 02/21/19 12:54 Ready for Discharge [RC] PER UNIT ROUTINE 02/21/19 21:00 Lactulose [Cephulac] 20 gm PO BID Remove Patch 1 ea TRDERM BEDTIME - Plan Plan:: I/P: Acute: Right Hip Fracture 2/2 Fall, Stable - Twisted to get cooler, felt pain, fell which resulted in worsening pain - Right leg noted to be externally rotated and shortened - Lumbar and thoracic spine CT negative for acute findings -L2 compression fx noted which is felt to be old - X-ray and CT of right hip show Proximal diaphyseal fracture surrounding right hip prothesis; Bilateral hip prothesis - Dr. Paris, Orthopedic surgeon consulted in ED - Ordering specialty equipment - Plan for surgery 02/17/19 AM - NPO at midnight tonight - PT/OT post surgery - Pain medications as ordered - Arguello catheter placed - Flexeril PRN - MRSA negative - 12-lead EKG shows NSR with no ectopy - CXR shows nothing acute - Denies any prior heart or lung problems; Only medication is levothyroxine - TSH 0.03; FT4 is 1.18; cut down dose of thyroid medication (was told she wants to use her home medication-defer pharmacy to okay it) - Will order type and screen and prepare 2 units if needed for surgery Back Pain, Improved - Sore from not moving - Continue Lidocaine Patch Daily (better option than narcotics) Vitamin D deficiency - Vitamin D 13.0 (30-100) - Continue oral supplementation Resolved: Pre-Operative Risk Stratification - Risk factors: None - METS > 4, SVS, EKG /CXR: benign - Physical exam fairly benign - No recent cardiac or lung eval - No active cardiac or lung disease - Based on the data provided, the patient carries mild cardiac risk for intermediate surgical risk S/p Vasovagal Near Syncope - 2 episodes with blood pressure bottoming out - She is likely volume depleted complicated by narcotic side effects - Cautioned on narcotic/benzo use - NS 500 mg l Bolus x1; will repeat H/H at 1800 Post- Operative Surgery - She is clinically stable but not hemodynamically when she was working with PT this morning and at noon - Pain is controlled - Educated about pain management and narcotic use S/p Confusion - 2/2 Medication Side Effects - She is on flexeril and narcotics for pain management - Advised nurse to be cautious giving above medications S/p Post-Operative Anemia - Hgb of 6.9; baseline of 10.7-->9.1-->9.6 grams - Meets criteria for transfusion - S/p 2 units of PRBC for transfusions - She feels much better this morning Chronic: Raynaud's Disease Recurrent PNA Arthritis Hypothyroidism Plan: She is clinically and hemodynamically stable, ready for discharge after bowel movement Other orders as indicated above CM/SW for discharge planning Routine AM labs DVT prophylaxis: SCDs and Lovenox SubQ BID Code status: Full code; PCP: None locally Additional orders a above Discharge in AM, facility would not be able to take her today
[2019-02-21] MEDS: Lactulose Soln 10 GM/15 ML 30 ML UD Cup PO SCH ×2 (13:55→20:24)
[2019-02-21] MEDS: Ondansetron 4 MG/2 ML SDV IV PRN (18:02)
[2019-02-21] MEDS: Cyclobenzaprine 10 MG Tab PO PRN (18:02)
[2019-02-22] MEDS: Acetaminophen/HYDROcodone 325-5 MG Tab PO PRN (05:05)
[2019-02-22] MEDS: SYNTHROID 150 MCG PO SCH (05:07)
[2019-02-22] MEDS: Lidocaine 4% 1 each Patch TOP SCH (08:51)
[2019-02-22] MEDS: Enoxaparin 30 MG/0.3 ML Syringe SUBCUT SCH (08:52)
[2019-02-22] MEDS: Lactulose Soln 10 GM/15 ML 30 ML UD Cup PO SCH (08:52)
[2019-02-22] MEDS: Pantoprazole 40 MG Tab.CR PO SCH (08:53)
[2019-02-22] MEDS: Cholecalciferol (Vitamin D3) 5,000 UNIT Tab PO SCH (08:53)
--- NOTE | 2019-02-23 09:06 | PCM.OPNOTE ---
- General Post-Op/Procedure Note Date of Surgery/Procedure: 02/17/19 Operative Procedure(s): right hip femoral stem revision for fracture with cabling and plating of greater trochanter Pre Op Diagnosis: right hip femoral periprosthetic fracture Post-Op Diagnosis: Same Anesthesia Technique: General ET Tube, Local Primary Surgeon: Jayson Paris Anesthesia Provider: Amy Sin Program Project Analyst: Angie Hutchinson Program Project Analyst: Staci Cohen EBL in mLs: 1,200 Complications: None Condition: Good Free Text/Narrative:: 195 conical diaphyseal fit leonides stem 27mm proximal body 36 biolox femoral head greater trochanter leonides cable plate
--- NOTE | 2019-02-23 10:14 | OR ---
DATE OF OPERATION: 02/17/2019 SURGEON: Jayson Paris MD OPERATION PERFORMED: Right hip femoral stem revision for fracture with cabling and plating of the greater trochanter. PREOPERATIVE DIAGNOSIS: Right hip femoral periprosthetic fracture. POSTOPERATIVE DIAGNOSIS: Right hip femoral periprosthetic fracture. ANESTHESIA: General endotracheal intubation with local. ANESTHESIA PROVIDER: Conchis Jackson. LOGISTICS TECH: Angie Hutchinson PA-C and Staci Cohen LPN. ESTIMATED BLOOD LOSS: 1200 mL. COMPLICATIONS: None. CONDITION: Stable. IMPLANTS: 1. Clarice size 195 mm conical diaphyseal fit stem. 2. [place] size 27 mm proximal femoral body. 3. Clarice size 36, +0 Biolox femoral head. 4. [place] greater trochanteric cable plate. 5. Six 2.0 mm Clarice cables. DESCRIPTION OF PROCEDURE: The patient was identified in the preop holding area. Proper site was marked and identified by the surgeon. The patient was taken back to the operating theater where after adequate anesthesia, the patient was placed in a left lateral decubitus position. Axillary roll was placed. The patient's gluteal fold was parallel to the floor. Pegs were then placed and well padded. The patient's right lower extremity was then sterilely prepped and draped in the usual sterile fashion. OR time-out was performed. The patient received 2 g IV Ancef. At this time, standard posterior incision was made, but this was taken all the way two-third down the lateral femur. This was taken down to the IP band and gluteal fascia, which were then incised along the entire incisional length. At this time, an incision was made down the vastus and a split was made down the vastus and fracture site was identified. At this time, the fracture was noted to be fairly minimally spaced in the diaphyseal portion so at this time, four 2.0 mm cables were placed and tension was applied and they were then cut. Under C-arm fluoroscopy, it was found to have anatomic reduction of the diaphyseal portion of the fracture. At this time, cable was placed around the lesser trochanter. The hip was then dislocated and the metal on metal total hip, the metal head was then impacted off. I did trial the stem and it was impacted a few times to see if it would move. I then did place a 36 mm +1.5 head back on and we relocated the hip. I then brought her through range of motion and the distal portion of the stem was then not fixated in the distal portion of the fracture and it had no fixation at that point, so the stem was loose. At this time, the femoral head was dislocated again. The proximal portion of the stem was then impacted off as well as the head. It was noted to have grade comminution noted on the proximal portion of the femur. The greater trochanter was a separate piece along with the calcar was off and a separate piece along with multiple other fragments. Starting with hand broaches, I was able to then broach up for I believe a size 18 stem, 195 mm conical diaphyseal fit. This was then impacted into place. The proximal body was then trialed and we were able to adequately restore leg length with a 27 mm proximal body +0 and a 36 +0 head. The patient's hip was stable throughout range of motion, roughly 28 degrees anteversion. The greater trochanter piece as well the calcar were completely off at this point. At this time, the proximal implant was then placed. The set screw was placed down the middle and anteversion was held as the set screw was tightened with a torque limiter. The 36+ 0 Biolox femoral head was then impacted into place and the hip was then relocated. The greater trochanter fragment was then cabled as well as a hook plate was placed and it was fixated to the proximal portion of the femoral stem for ingrowth. The rest of the construct was stable. The patient had full range of motion about the right hip, and it was stable. 1 L dilute Betadine solution was then irrigated through the hip along with 3 L of pulse lavage irrigation with Ancef. 0 Vicryl was used for closure of the vastus split, and #2 barbed suture was used for closure of the IT band and gluteal fascia after tranexamic acid and vancomycin powder were placed. A 2-0 Vicryl was used subcutaneously and a DURAN incisional wound VAC was then placed along the incisional length. The patient was sent to PACU in stable condition. Please note, that this was a significant difficult procedure from standard as the patient had very poor bone quality type C bone with significant comminution of the proximal femur. ADRIANE /[id number]
== END 2019-02-22 11:20 | DRG 498 ==
LOC: JD.ED 18:11 → JD.MS 21:26 → UNDOADMIN 21:26 → JD.MS 21:50
PROVIDERS: ADMIT Internal Medicine; ATTEND Internal Medicine
PROC: 0QW Lower Bones, Revision (ICD-10-PCS; principal; 2019-02-17)
PROC: 30233N1 Transfusion of Nonautologous Red Blood Cells into Peripheral Vein, Percutaneous Approach (ICD-10-PCS; 2019-02-17)
DX: S72.001A Fracture of unspecified part of neck of right femur, initial encounter for closed fracture (principal); M97.8XXA Periprosthetic fracture around other internal prosthetic joint, initial encounter; M97.01XA Periprosthetic fracture around internal prosthetic right hip joint, initial encounter; D62 Acute posthemorrhagic anemia; E03.9 Hypothyroidism, unspecified; Z96.643 Presence of artificial hip joint, bilateral; M17.0 Bilateral primary osteoarthritis of knee; Z79.890 Hormone replacement therapy; M19.91 Primary osteoarthritis, unspecified site; Z96.641 Presence of right artificial hip joint; Z96.642 Presence of left artificial hip joint; W19.XXXA Unspecified fall, initial encounter; E55.9 Vitamin D deficiency, unspecified; I73.00 Raynaud's syndrome without gangrene; M54.5 Low back pain; K59.01 Slow transit constipation; R55 Syncope and collapse; Z79.899 Other long term (current) drug therapy; Z98.49 Cataract extraction status, unspecified eye; Z90.49 Acquired absence of other specified parts of digestive tract
CPT/HCPCS: 01214; 36415; 36430; 51702; 71045; 71045-26; 72128; 72128-26; 72131; 72131-26; 73501-26-RT; 73501-RT; 73502-26-RT; 73502-RT; 73700-26-RT; 73700-RT; 76000; 76000-26; 80048; 80053; 81001; 82306; 83735; 84439; 84443; 84484; 85014; 85018; 85025; 85027; 85610; 85730; 86850; 86900; 86901; 86922; 87086; 87641; 93005; 94761; 96374; 96375; 97110-GO; 97110-GP; 97161-GP; 97166-GO; 97530-GO; 97530-GP; 97535-GO; 99284; 99285-25; A9270-GY; C1713; C1776; C9113; J0171; J0690; J0697; J1100; J1170; J1200; J1644; J1650; J1885; J2001; J2270; J2370; J2405; J2704; J2710; J3010; J3370; J3490; J7030; J7040; J7050; J7120; P9016